=== PATIENT | male | born 1940 | race Caucasian/White ===

== ENCOUNTER → 2018-12-21 | Outpatient (CLI) | payer MEDICARE, OTHER, SELFPAY ==
[2018-12-21 13:43] LABS: PSA,Total- Diagnostic < 0.01 ng/mL (0.0-4.0)
== END | disposition home or self-care (01) ==
PROVIDERS: Family Provider Family Medicine; PCP Family Medicine; Referring Provider Family Medicine; Visit Provider Urology
DX: C61 Malignant neoplasm of prostate (principal)
CPT/HCPCS: 36415; 84153

== ENCOUNTER → 2019-09-30 11:39 | Outpatient (CLI) | payer MEDICARE, OTHER, SELFPAY ==
[2019-09-30 12:59] LABS: PSA,Total- Diagnostic < 0.01 ng/mL (0.0-4.0)
== END ==
PROVIDERS: PCP Family Medicine; Referring Provider Urology; Visit Provider Urology
DX: C61 Malignant neoplasm of prostate (principal)
CPT/HCPCS: 36415; 84153

== ENCOUNTER → 2020-02-10 09:04 | Outpatient (CLI) | payer MEDICARE, OTHER, SELFPAY ==
[2020-02-10 10:08] LABS: Hemoglobin A1c 6.2 % (3.8-5.6)
[2020-02-10 10:45] LABS: ALB/GLOB Ratio 0.9 RATIO (0.9-2.4); AST(SGOT) 23 U/L (15-37); Alanine Aminotransfer ALT/SGPT 40 U/L (16-61); Albumin, Serum 3.4 g/dL (3.2-5.0); Alkaline Phosphatase 56 U/L (45-117); Anion Gap 6 (5-15); BUN 20 mg/dL (7-18); BUN/Creat Ratio 13.8 RATIO (10-20); Calcium,Total 8.5 mg/dL (8.5-10.1); Chloride 103 mmol/L (98-107); Cholesterol 165 mg/dL (200); Creatinine, Serum 1.45 mg/dL (0.70-1.30); EST Glomerular Filtration Rate 50 mL/min (>60); Est Glom Filt Rate - Afr Amer 60 mL/min (>60); Globulin 3.6 g/dL (2.2-4.2); Glucose 118 mg/dL (74-106); High Density Lipoprotein 35 mg/dL; Potassium 4.3 mmol/L (3.5-5.1); Sodium Level 137 mmol/L (136-145); Thyroid Stim Hormone (TSH) 2.62 uIU/mL (0.358-3.74); Triglycerides 190 mg/dL; Very Low Density Lipoprotein 38 mg/dL (5-40)
== END ==
PROVIDERS: PCP Family Medicine; Referring Provider Family Medicine; Visit Provider Family Medicine
DX: E78.5 Hyperlipidemia, unspecified (principal); I10 Essential (primary) hypertension; R73.01 Impaired fasting glucose
CPT/HCPCS: 36415; 80053; 80061; 83036; 84443

== ENCOUNTER 2020-03-18 09:03 | Emergency (ER) | payer MEDICARE, OTHER, SELFPAY ==
[2020-03-18 09:05] VITALS: BP 136/85; PULSE 87; RESP 16; TEMP 36.3; O2SAT 96; BMI 35.7
--- NOTE | 2020-03-18 09:22 | CT_ITS ---
STUDY: CT ABDOMEN AND PELVIS WITHOUT CONTRAST REASON FOR EXAM: Male, 79 years old. FLANK PAIN, LT SIDE RADIATION DOSAGE (If Supplied By Facility): CTDIvol = ( 21.10 ) mGy, DLP = ( 1154.47 ) mGycm TECHNIQUE: Transaxial images were obtained from the dome of the diaphragm to the symphysis pubis without oral contrast, and without intravenous contrast. Sagittal and coronal images were reconstructed. Individualized dose optimization techniques were used for this CT. COMPARISON: September 05, 2017. FINDINGS: The visualized lung bases demonstrate basilar atelectasis. The visualized portions of the heart are within normal limits. Fatty liver. Cholelithiasis. No significant dilatation of extrahepatic biliary system. Normal spleen. Normal pancreas. 1.2 cm gastrohepatic node. Normal bilateral adrenal glands. Normal right kidney. Normal left kidney. Normal visualized stomach. Normal small intestine. Mild diverticulosis of the colon. The appendix is visualized and appears normal. Calcified abdominal aorta. Possible focal 1.2 cm splenic artery aneurysm. Normal inferior vena cava. Normal retroperitoneum. Normal urinary bladder. Stable lipomatous 1.8 cm nodule is noted within the left side of the pelvis. Fatty density at the inguinal canals. Normal abdominal wall. Degenerative vertebral changes with mild scoliosis. Spondylolysis of L5. CT/Abdomen/Pelvis without Cont IMPRESSION: Fatty liver. Cholelithiasis. Possible splenic artery aneurysm. No renal stones or hydronephrosis. Stable lipomatous nodule within the left pelvic mesentery. Fatty density at the inguinal canals. Slightly prominent gastrohepatic node. Colonic diverticulosis. Electronically Signed: Juanito Blevins DO at 10:36 EDT Tel [phone], Service support ,
--- NOTE | 2020-03-18 09:23 | ED.DCSUM_ITS ---
History of Present Illness <Pooja Alcaraz - Last Filed: 03/18/20 11:03> Informant: Patient - Abdominal Pain/Flank Pain Onset: Today Context: Sudden Onset Timing: Intermittent Quality: Sharp, Stabbing Location: Left Flank Current Severity: Mild Maximum Severity: Severe Worsened by: Nothing Relieved by: Nothing - Nausea/Vomiting/Emesis GI Symptom: Negative for: Nausea, Vomiting - Diarrhea/Melena/Hematochezia GI Symptom: Negative for: Diarrhea, Melena, Hematochezia Associated Symptoms: Frequency, Urgency. Negative for: Dysuria, Hematuria Narrative: 79-year-old male presents to the emergency department with left-sided flank pain and frequency and urgency with urination. He woke up at 5 AM today with severe sharp and stabbing left-sided flank pain and back pain. He states that it was severe for about 2 hours. It slowly resolved. He did not take any medicines for this. Throughout the course of the night he noted worsened frequency of urination and urgency than his baseline. He states he normally wakes up every 2-3 hours throughout the course the night to urinate but he was waking up approximately every 1 hour to urinate last night. He has not had hematuria or difficulty urinating. No nausea or vomiting. No diarrhea melena or hematochezia. No constipation. He has not felt lightheaded or dizzy. He denies chest pain or shortness of breath. He denies history of kidney stones. He has a history of prostate cancer. He was treated with radiation seeds 3 years ago. Denies any recent illness or hospitalization. He denies any upper respiratory symptoms or contacts of anyone with Covid-19 Prior similar symptoms: No Recent Illness/Hospitalization: No <Joel Asencio - Last Filed: 03/18/20 11:06> Chief Complaint: Flank Pain Past Medical History <Pooja Alcaraz - Last Filed: 03/18/20 11:03> Prior records reviewed: Yes Past Medical History: - - prostate cancer Surgical History: - - vasectemy, trauma injury to lower abd via a tailgate of a truck 5 years ao Lives: Alone Smoking Status: Current every day smoker Alcohol: Occasional Drugs: None - Family History Maternal Family History: Reports: - - arthritis Paternal Family History: Reports: - - father young of mi <Joel Asencio - Last Filed: 03/18/20 11:06> - Allergies and Home Meds Allergies/Adverse Reactions: Allergies Penicillins Allergy (Verified 03/18/20 09:05) Rash promethazine HCl [From Phenergan] Adverse Reaction (Verified 03/18/20 09:05) Unknown SEVERE CONFUSION, STROKE LIKE SYMPTOMS Primary Care Physician: Alejandra Mcdonald DO [Primary Care Provider] - 3-5 Days Review of Systems All systems negative except as indicated General: Denies: Chills, Fever, Sweats Eyes: Denies: Visual changes - bilaterally, Diplopia ENT: Denies: Rhinorrhea, Sore throat Cardiovascular: Denies: Chest pain, Palpitations Respiratory: Denies: Dyspnea, Cough, Dyspnea on exertion Gastrointestinal: Reports: Abdominal pain. Denies: Nausea, Vomiting, Diarrhea, Constipation, Melena, Hematochezia Genitourinary: Reports: Frequency. Denies: Dysuria, Hematuria Musculoskeletal: Denies: Myalgias, Arthralgias, Neck pain, Back pain, Swelling, Extremity Pain Skin: Denies: Rash, Wounds Neurological: Denies: Headache, Weakness, Numbness <Luis MJoel - Last Filed: 03/18/20 11:06> Physical Exam Vital Signs/Narrative: Vital Signs Temp Pulse Resp BP Pulse Ox 03/18/20 09:05 97.3 F L 87 16 136/85 H 96 <Pooja Alcaraz - Last Filed: 03/18/20 11:03> Vital Signs/Narrative: Vital Signs Temp Pulse Resp BP Pulse Ox 03/18/20 09:05 97.3 F L 87 16 136/85 H 96 Inital Vital Signs reviewed: Yes General: Well nourished, Well developed, No Acute Distress Head: Normocephalic, Atraumatic Eyes: Perrl, EOMI ENT: Moist mucous membranes, No rhinorrhea Neck: Supple, Nontender Cardiovascular: Regular rate, Regular rhythm, No murmurs Respiratory: No distress, CTA bilaterally, Chest nontender Abdomen: Soft, Nontender, Nondistended, Normal bowel sounds, No masses Back: Nontender, Normal Inspection. Negative for: CVA tenderness, Spinal tenderness Extremities: Nontender, No edema. Negative for: Tenderness, Edema Skin: Normal color, No rash Neurological: Alert, Oriented x3, Cranial nerves II-XII grossly intact, Normal Strength, Normal Sensation Psychological: Normal affect, Normal Mood <Joel Asencio - Last Filed: 03/18/20 11:06> Diagnostic/Tx/Re-eval - Medical Decision Making Patient seen and evaluated with the physician's accountant assistant. Patient was independently evaluated. Patient presents with left flank pain that was very severe earlier this morning. Pain is improved at this time. He states he was up to try to urinate frequently. Patient sitting upright in bed no acute distress. Heart is regular rhythm. On lung sounds are clear. Abdomen is soft and nontender. Back examination was no reproducible CVA tenderness. Lab work and urinalysis is unremarkable. CT flank shows chronic findings with no definitive cause for his pain. Patient was given return instructions. He may have passed a small kidney stone prior to arrival. He will continue to monitor his symptoms and return if worsened. Disposition: Discharge Impression: Left leg pain <Pooja Alcaraz - Last Filed: 03/18/20 11:03> CT: Flank Impressions Abdomen/Pelvis CT 03/18/20 09:22 IMPRESSION: Fatty liver. Cholelithiasis. Possible splenic artery aneurysm. No renal stones or hydronephrosis. Stable lipomatous nodule within the left pelvic mesentery. Fatty density at the inguinal canals. Slightly prominent gastrohepatic node. Colonic diverticulosis. Electronically Signed: Juanito Blevins DO at 10:36 EDT Tel [phone], Service support , 03/18/20 09:22 Abdomen/Pelvis without Cont [CT] Stat Laboratory Results 03/18/20 03/18/20 03/18/20 09:30 09:30 09:30 WBC 7.4 RBC 4.62 Hgb 14.6 Hct 44.6 MCV 96.5 H MCH 31.6 MCHC 32.7 RDW Std Deviation 45.8 H RDW Coeff of José Miguel 12.9 Plt Count 94 L MPV 10.3 Immature Gran % (Auto) 0.700 Neut % (Auto) 70.6 H Lymph % (Auto) 13.4 L [place] % (Auto) 13.0 H Eos % (Auto) 1.5 Baso % (Auto) 0.8 Absolute Neuts (auto) 5.2 Absolute Lymphs (auto) 0.99 Nucleated RBC % 0 Differential Comment SCANNED Platelet Estimate MOD DEC Sodium 137 Potassium 4.3 Chloride 105 Carbon Dioxide 27.0 Anion Gap 5 BUN 16 Creatinine 1.43 H Estim Creat Clear Calc 39.20 Est GFR (MDRD) Af Amer 61 Est GFR (MDRD) Non-Af 50 L BUN/Creatinine Ratio 11.2 Glucose 136 H Calcium 8.6 Urine Color Yellow Urine Clarity Clear Urine pH 5.0 Ur Specific [place] 1.020 Urine Protein Negative Urine Glucose (UA) Normal Urine Ketones 5 H Urine Occult Blood 10 H Urine Nitrite Negative Urine Bilirubin Negative Urine Urobilinogen 1 H Ur Leukocyte Esterase Negative Urine RBC 0-5 SEEN Urine WBC 0-5 SEEN Ur Squamous Epith Cells 0 SEEN Urine Bacteria RARE Urine Mucus 0 SEEN - Medical Decision Making Patient declined analgesia. On exam he is not having any pain. He states that he had resolution of his pain before prior to arrival. CBC BMP were obtained and both are unremarkable. Urinalysis shows 0-5 red blood cells. Rest of urinalysis unremarkable. CT abdomen and pelvis without contrast shows no renal stones or hydronephrosis. It also showed cholelithiasis, possible splenic artery aneurysm, diverticulosis, and a enlarged lymph node gastrohepatic. Patient on repeat exam is still pain-free. Discussed with him we do not have a definitive cause of his back pain at this time. Patient states he does not need any analgesia for home. Patient will follow-up with his primary care this week or return back here for worsening symptoms <Joel Asencio - Last Filed: 03/18/20 11:06> ED Disposition <Pooja Alcaraz - Last Filed: 03/18/20 11:03> <Joel Asencio - Last Filed: 03/18/20 11:06> - Plan for ED Patient: Disposition: Home or Assisted Living Diagnosis: Left flank pain, History of prostate cancer Instructions: ED Flank Pain Uncertain Cause Referrals: Alejandra Mcdonald DO [Primary Care Provider] - 3-5 Days
[2020-03-18 09:37] LABS: Mucous, Urine 0 SEEN /hpf (<or=2+); Squamous Epithelial Cells - UA 0 SEEN /hpf (0-5)
[2020-03-18 09:45] LABS: Color, Urine Yellow (Yellow); Glucose, Dipstick Normal (Normal); Ketone-Dipstick 5 mg/dl (Negative); Leukocyte Esterase-Dipstick Negative /ul (Negative); Nitrite-Dipstick Negative (Negative); Occult Blood-Urine 10 /ul (Negative); Protein-Dipstick Negative (Negative); Urine Bilirubin Dipstick Negative (Negative); Urine Clarity Clear (Clear); Urine Urobilinogen 1 mg/dl (Normal)
[2020-03-18 09:48] LABS: Absolute Lymphocyte Count 0.99 X10^3/uL (0.83-4.51); Absolute Neutrophil Count 5.2 X10^3/uL (2.0-7.7); Basophil# 0.06 X10^3/uL; Basophil% 0.8 % (0-1); Eosinophil# 0.11 X10^3/uL; Eosinophils% 1.5 % (0-5); Hematocrit 44.6 % (40-54); Hemoglobin 14.6 g/dL (13.0-16.5); Lymphocyte # 0.99 X10^3/ul (4.0); Lymphocyte % 13.4 % (19-41); Mean Corp Hgb Conc 32.7 g/dL (32-36); Mean Corpuscular Hgb 31.6 pg (27.0-32.0); Mean Corpuscular Volume 96.5 fL (80-94); Mean Platelet Vol. 10.3 fl (6.2-12.0); Monocyte# 0.96 X10^3/uL; NRBC Flagged by Analyzer 0 % (0-5); Neutrophil # 5.22 X10^3/uL (2.7-7.7); Neutrophil % 70.6 % (47-70); POSITIVE COUNT YES; Platelet Count 94 K/mm3 (150-450); RBC Distribution Width CV 12.9 % (11.6-14.6); RBC Distribution Width SD 45.8 fl (35.1-43.9); Red Blood Count 4.62 M/mm3 (4.6-6.2); White Blood Count 7.4 K/mm3 (4.4-11.0)
[2020-03-18 09:52] LABS: Bacteria RARE /hpf (None Seen); Differential Indicated SCAN CRITERIA MET; Red Blood Cells-Urine 0-5 SEEN /hpf (0-5); White Blood Cells 0-5 SEEN /hpf (0-5)
[2020-03-18 09:58] LABS: Anion Gap 5 (5-15); BUN 16 mg/dL (7-18); BUN/Creat Ratio 11.2 RATIO (10-20); Calcium,Total 8.6 mg/dL (8.5-10.1); Chloride 105 mmol/L (98-107); Creatinine, Serum 1.43 mg/dL (0.70-1.30); EST Glomerular Filtration Rate 50 mL/min (>60); Est Glom Filt Rate - Afr Amer 61 mL/min (>60); Glucose 136 mg/dL (74-106); Potassium 4.3 mmol/L (3.5-5.1); Sodium Level 137 mmol/L (136-145)
[2020-03-18 10:14] LABS: Differential Comment SCANNED; Platelet Estimate MOD DEC (ADEQ)
== END 2020-03-18 11:15 | disposition home or self-care (01) ==
PROVIDERS: Emergency Provider Physician Assistant Medical; PCP Family Medicine
DX: R10.9 Unspecified abdominal pain (principal); Z85.46 Personal history of malignant neoplasm of prostate; K76.0 Fatty (change of) liver, not elsewhere classified; K80.20 Calculus of gallbladder without cholecystitis without obstruction; K57.30 Diverticulosis of large intestine without perforation or abscess without bleeding; F17.200 Nicotine dependence, unspecified, uncomplicated; Z88.0 Allergy status to penicillin; Z88.8 Allergy status to other drugs, medicaments and biological substances; Z92.3 Personal history of irradiation; R35.0 Frequency of micturition; R39.15 Urgency of urination
CPT/HCPCS: 74176; 80048; 81001; 85025; 99283; A4216

== ENCOUNTER → 2020-03-30 16:05 | Outpatient (CLI) | payer MEDICARE, OTHER, SELFPAY ==
[2020-03-18 09:05] VITALS: BMI 35.7
[2020-03-30 18:40] LABS: PSA,Total- Diagnostic < 0.01 ng/mL (0.0-4.0)
== END ==
PROVIDERS: PCP Family Medicine; Referring Provider Urology; Visit Provider Urology
DX: C61 Malignant neoplasm of prostate (principal)
CPT/HCPCS: 36415; 84153

== ENCOUNTER 2020-07-03 19:04 | Inpatient (IN) | payer MEDICARE, OTHER, SELFPAY ==
[2020-07-03 19:04] VITALS: BP 130/78; PULSE 99; RESP 18; TEMP 36.7; BMI 34.4
--- NOTE | 2020-07-03 19:50 | EKG12_ITS ---
Test Reason : DYSRHYTHMIA Blood Pressure : / mmHG Vent. Rate : 091 BPM Atrial Rate : 091 BPM P-R Int : 152 ms QRS Dur : 084 ms QT Int : 338 ms P-R-T Axes : 001 013 032 degrees QTc Int : 415 ms Normal sinus rhythm Possible Inferior infarct , age undetermined Abnormal ECG Confirmed by FRANCO TITUS, YFN ([id number]), editor producer CHASITY REESE ([id number]) on 07/10/2020 11:46:34 AM Referred By: Yfn Bautista Confirmed By:YFN GAMEZ MD
--- NOTE | 2020-07-03 19:51 | ED.DCSUM_ITS ---
History of Present Illness Chief Complaint: General Illness Informant: Patient, Family Narrative: 79-year-old male with no significant past medical history presents with concern for swollen glands and decreased appetite. Patient states it began approximate 2 weeks ago. Has been seen by multiple physicians. Patient did have teledoc appointment today where they were concerned that he had mumps and asked him to go to the emergency department. Patient states he is actually significantly improved. His swelling is improved. States his appetite has been poor. Patient also states he has had thoughts of killing himself. Has no plan at this time. Dates that he does have guns in the home. Past Medical History - Allergies and Home Meds Allergies/Adverse Reactions: Allergies Penicillins Allergy (Verified 03/18/20 09:05) Rash promethazine HCl [From Phenergan] Adverse Reaction (Verified 03/18/20 09:05) Unknown SEVERE CONFUSION, STROKE LIKE SYMPTOMS Primary Care Physician: Alejandra Mcdonald DO [Primary Care Provider] - Past Medical History: None Surgical History: - - vasectemy, trauma injury to lower abd via a tailgate of a truck 5 years ao Lives: Alone Smoking Status: Current every day smoker Alcohol: None Drugs: None - Family History Maternal Family History: Reports: - - arthritis Paternal Family History: Reports: - - father young of mi Review of Systems General: Reports: Malaise. Denies: Chills, Fever, Sweats Eyes: Denies: Visual changes - bilaterally, Diplopia ENT: Denies: Rhinorrhea, Sore throat Cardiovascular: Denies: Chest pain, Palpitations Respiratory: Denies: Dyspnea, Cough, Dyspnea on exertion Gastrointestinal: Denies: Abdominal pain, Nausea, Vomiting, Diarrhea, Melena, Hematochezia Genitourinary: Denies: Dysuria, Hematuria, Frequency Musculoskeletal: Denies: Back pain, Extremity Pain Skin: Denies: Rash, Wounds Neurological: Denies: Headache, Weakness, Numbness Psych: Reports: Depression, Suicidal thoughts Physical Exam Vital Signs/Narrative: Vital Signs Temp Pulse Resp BP 07/03/20 19:04 98.1 F 99 18 130/78 H Inital Vital Signs reviewed: Yes General: Well nourished, Well developed, No Acute Distress Head: Normocephalic, Atraumatic Eyes: Perrl, EOMI ENT: Moist mucous membranes, No rhinorrhea Neck: Supple, Nontender Cardiovascular: Regular rate, Regular rhythm, No murmurs Respiratory: No distress, CTA bilaterally, Chest nontender Abdomen: Soft, Nontender, Nondistended, Normal bowel sounds Back: Nontender, Normal Inspection Extremities: Nontender, No edema Skin: Normal color, No rash Neurological: Alert, Oriented x3, Cranial nerves II-XII grossly intact, Normal Strength, Normal Sensation Psychological: Normal affect, Normal Mood Diagnostic/Tx/Re-eval Laboratory Data 07/03/20 07/03/20 07/03/20 20:20 20:20 20:20 WBC 6.1 RBC 4.26 L Hgb 13.2 Hct 40.5 MCV 95.1 H MCH 31.0 MCHC 32.6 RDW Std Deviation 44.0 H RDW Coeff of José Miguel 12.7 Plt Count 224 MPV 9.8 Immature Gran % (Auto) 1.500 H Neut % (Auto) 74.6 H Lymph % (Auto) 10.6 L [place] % (Auto) 12.5 H Eos % (Auto) 0.3 Baso % (Auto) 0.5 Absolute Neuts (auto) 4.5 Absolute Lymphs (auto) 0.64 L Nucleated RBC % 0 Sodium 134 L Potassium 4.1 Chloride 100 Carbon Dioxide 26.0 Anion Gap 8 BUN 21 H Creatinine 1.61 H Estim Creat Clear Calc 34.81 Est GFR (MDRD) Af Amer 53 L Est GFR (MDRD) Non-Af 44 L BUN/Creatinine Ratio 13.0 Glucose 109 H Calcium 8.2 L Total Bilirubin 0.70 AST 32 ALT 28 Alkaline Phosphatase 58 Troponin I < 0.015 Total Protein 7.5 Albumin 2.9 L Globulin 4.6 H Albumin/Globulin Ratio 0.6 L Ur Drug Screen Comment Ethyl Alcohol < 3.0 07/03/20 22:55 WBC RBC Hgb Hct MCV MCH MCHC RDW Std Deviation RDW Coeff of José Miguel Plt Count MPV Immature Gran % (Auto) Neut % (Auto) Lymph % (Auto) [place] % (Auto) Eos % (Auto) Baso % (Auto) Absolute Neuts (auto) Absolute Lymphs (auto) Nucleated RBC % Sodium Potassium Chloride Carbon Dioxide Anion Gap BUN Creatinine Estim Creat Clear Calc Est GFR (MDRD) Af Amer Est GFR (MDRD) Non-Af BUN/Creatinine Ratio Glucose Calcium Total Bilirubin AST ALT Alkaline Phosphatase Troponin I Total Protein Albumin Globulin Albumin/Globulin Ratio Ur Drug Screen Comment Ethyl Alcohol - Rhythm Strip Rhythm Strip: Sinus Rhythm Rate: 91 Ectopy: None - EKG Initial EKG Interpretation: Sinus Rhythm - Normal sinus rhythm at 90 bpm. MN interval 152 ms. QTC of 415 ms. No evidence of ST elevation or depression at this time. - Medical Decision Making Patient appears well nontoxic. Vital signs within normal limits. Lab work sh ows volume depletion. Patient was given 1 L of normal saline. Patient did express suicidal thoughts with a plan. For this reason patient will be pink slipped. [facility] was contacted who will review the case once the patient is medically cleared. Impression: 1. Viral syndrome 2. Suicidal ideation ED Disposition - Plan for ED Patient: Disposition: Psychiatric Hospital or Unit Referrals: Alejandra Mcdonald DO [Primary Care Provider] -
--- NOTE | 2020-07-03 20:15 | CM.ED ---
SOCIAL WORK Informant: Dr. Fair Reason for Consult: Suicidal ideation Chief Compliant: Patient presents to [facility] ER with compliant of general illness. While talking with Dr. Fair patient reported suicidal ideation. Marital Status: Living Situation: Home alone Support/Resources: Family Mental Health Treatment/History: Patient reports history of depression. Patient states at the age of 7 family member had to take shot gun away because I was going to shoot myself. Patient states after my left me in 1983 patient had contemplated suicide. Patient denies any previous hospitalizations. Patient reports sought counseling after divorce. Triggers/Stressors: Patient reports his physical health to be an issue as he has not been feeling well for several weeks. Patient reports not being able to eat or sleep. Education provided on mental health and physical health. Protective Factors: Children and grandchildren Substance Abuse History: Patient denies any history of alcohol or illegal drug use. Patient admits to use of chewing tobacco. Risk to Self/Others: Suicidal- Patient reports has thoughts when walking past basement that he could tie a noose and jump off steps to basement. Patient reports to have shot guns in the home that are kept in a gun safe. Homicidal- Patient denies any homicidal ideations Mental Status Exam: Orientation: A&Ox3 Memory: Fair Appearance/General Behavior: clean/appropriate, agitated Mood/Affect: depressed Communication Pattern: responds to questions Thought Process: appropriate Judgment: poor Assessment: Met with patient and patient's son in room. Patient gave permission for this worker to speak openly with son present. Introduced role and reason for referral. Patient open to speaking with this worker. Patient reports history of depression. Patient stated when left in 1982 had contemplated suicide. Patient reports at that time sought counseling. Patient reports over the last several weeks has not been feeling well. Patient reporting to not be able to eat or sleep. Patient admits to suicidal ideation. Explored thoughts of a plan. Patient reports to have guns in the home. Patient also reported had walked past the basement steps and had thoughts of hanging self. Collaboration with Dr. Fair. Patient has been [place] Slipped and recommending inpatient psych hospitalization. This worker to facilitate placement. Plan: Referral for inpatient psych hospitalization. [place] Slip on chart.
[2020-07-03 20:25] VITALS: BP 133/73; PULSE 90; RESP 20; O2SAT 93
[2020-07-03 20:47] LABS: Absolute Lymphocyte Count 0.64 X10^3/uL (0.83-4.51); Absolute Neutrophil Count 4.5 X10^3/uL (2.0-7.7); Basophil# 0.03 X10^3/uL; Basophil% 0.5 % (0-1); Eosinophil# 0.02 X10^3/uL; Eosinophils% 0.3 % (0-5); Hematocrit 40.5 % (40-54); Hemoglobin 13.2 g/dL (13.0-16.5); Lymphocyte # 0.64 X10^3/ul (4.0); Lymphocyte % 10.6 % (19-41); Mean Corp Hgb Conc 32.6 g/dL (32-36); Mean Corpuscular Volume 95.1 fL (80-94); Mean Platelet Vol. 9.8 fl (6.2-12.0); Monocyte# 0.76 X10^3/uL; Monocyte% 12.5 % (0-10); NRBC Flagged by Analyzer 0 % (0-5); Neutrophil # 4.52 X10^3/uL (2.7-7.7); Neutrophil % 74.6 % (47-70); Platelet Count 224 K/mm3 (150-450); RBC Distribution Width CV 12.7 % (11.6-14.6); Red Blood Count 4.26 M/mm3 (4.6-6.2); White Blood Count 6.1 K/mm3 (4.4-11.0)
[2020-07-03 21:00] LABS: ALB/GLOB Ratio 0.6 RATIO (0.9-2.4); AST(SGOT) 32 U/L (15-37); Alanine Aminotransfer ALT/SGPT 28 U/L (16-61); Albumin, Serum 2.9 g/dL (3.2-5.0); Alkaline Phosphatase 58 U/L (45-117); Anion Gap 8 (5-15); BUN 21 mg/dL (7-18); Calcium,Total 8.2 mg/dL (8.5-10.1); Chloride 100 mmol/L (98-107); Creatinine, Serum 1.61 mg/dL (0.70-1.30); EST Glomerular Filtration Rate 44 mL/min (>60); Est Glom Filt Rate - Afr Amer 53 mL/min (>60); Estimated Creatinine Clearance 34.81 ml/min; Globulin 4.6 g/dL (2.2-4.2); Glucose 109 mg/dL (74-106); Potassium 4.1 mmol/L (3.5-5.1); Protein, Total 7.5 g/dL (6.4-8.2); Sodium Level 134 mmol/L (136-145)
--- NOTE | 2020-07-03 21:20 | CM.ED ---
SOCIAL WORK This worker to room with Dr. Fair to educate patient and son on [place]ip. Patient stating I want to go home. Son voiced disagreement with plan for inpatient psych hospitalization. Proceeding with plan for inpatient psych. D. Santos, INDIGO VAT TENDER CLOTH, DERMATOPATHOLOGIST
[2020-07-03] MEDS: 0.9% Normal Saline 1,000 ML 999 ML IV (22:12)
[2020-07-03 22:35] VITALS: BP 151/70; PULSE 85; RESP 18; TEMP 37.7; O2SAT 93
--- NOTE | 2020-07-03 22:50 | CM.ED ---
SOCIAL WORK Referral faxed and called to [facility]. Still waiting on lab results for urine and tox along with COVID-19 results. End of SW shift-Handoff given to medical assistant secretary, Amadou and charge entry clerk, Dolores. Healthcare Translator to fax results to [facility] once received.
[2020-07-03 22:52] LABS: Alcohol, Blood (Medical)-Serum < 3.0 mg/dL
[2020-07-03 23:04] LABS: Mucous, Urine 0 SEEN /hpf (<or=2+); Red Blood Cells-Urine 0 SEEN /hpf (0-5); Squamous Epithelial Cells - UA 0 SEEN /hpf (0-5); White Blood Cells 0 SEEN /hpf (0-5)
[2020-07-03 23:31] LABS: Color, Urine Yellow (Yellow); Glucose, Dipstick Normal (Normal); Ketone-Dipstick 15 mg/dl (Negative); Leukocyte Esterase-Dipstick Negative /ul (Negative); Nitrite-Dipstick Negative (Negative); Occult Blood-Urine Negative /ul (Negative); Protein-Dipstick 15 mg/dl (Negative); Urine Bilirubin Dipstick Negative (Negative); Urine Clarity Clear (Clear); Urine Urobilinogen Normal (Normal)
[2020-07-03 23:43] LABS: Bacteria 2+ /hpf (None Seen)
[2020-07-03 23:50] LABS: Amphetamine Urine VISTA NEGATIVE (<1000 ng/mL); Barbiturate Urine VISTA NEGATIVE (< 200 ng/mL); Benzodiazepine Urine VISTA NEGATIVE (< 200 ng/mL); Cocaine Urine VISTA NEGATIVE (< 300 ng/mL); Ecstacy Urine VISTA NEGATIVE (< 500 ng/mL); Methadone Urine VISTA NEGATIVE (< 300 ng/mL); PCP Urine VISTA NEGATIVE (< 25 ng/mL); THC Urine VISTA NEGATIVE (< 50 ng/mL); Vista UDS pH Range 6
[2020-07-04] VITALS (13 sets, daily range): BP systolic 120–201; BP diastolic 51–100; PULSE 68–92; RESP 16–24; TEMP 37.6–38.7; O2SAT 92–97; BMI 34.1; BMI 34.2
[2020-07-04] MEDS: hydrALAZINE 20 MG/ML Vial 10 MG IV (00:29)
--- NOTE | 2020-07-04 01:23 | NURSING ---
notified of bp 201/84. no orders given at this time
--- NOTE | 2020-07-04 01:50 | PCM.HP.STD ---
Problem List (1) COVID-19 Status: Acute (2) Suicidal ideation Status: Acute History of Present Illness Date of Admission: 07/04/20 Chief Complaint: shortness of breath, suicidal thinking The patient is a 79 year old male patient presents to the emergency room complaining of shortness of breath. Onset of the symptoms began approximately 2 weeks ago for which she had a telehealth appointment and was told he might have mumps however that subsequently resolved and the patient has now become short of breath with fever. The patient tested positive for COVID-19 virus and has had shortness of breath with increased rate of breathing while being observed in the emergency room. He states that finds it difficult to take a deep breath. He also complained to the ER physician taking care of him earlier in the observation. That he was feeling suicidal however he did not have an active plan at that time and currently he is denying thinking of suicide. Suicide precautions have been put in place due to the threat verbalized earlier in the day and the patient will be admitted to the [facility] floor for observation. Pending evaluation by case management he may be discharged home tomorrow if he is improved. Past Medical History Allergies Penicillins Allergy (Verified 03/18/20 09:05) Rash promethazine HCl [From Phenergan] Adverse Reaction (Verified 03/18/20 09:05) Unknown SEVERE CONFUSION, STROKE LIKE SYMPTOMS Home Medications: Ambulatory Orders Medication Instructions Recorded Finasteride [Proscar] 5 mg PO QHS 02/26/15 Simvastatin [Zocor] 40 mg PO QHS 02/26/15 Tamsulosin HCl [Flomax] 0.4 mg PO BID 02/26/15 Aspirin E.C. [Ecotrin] 81 mg PO DAILY@0800 07/09/17 Surgical History: - - vasectemy, trauma injury to lower abd via a tailgate of a truck 5 years ao Lives: Alone Smoking Status: Current every day smoker Alcohol: None Drugs: None - *Family History Maternal History Items: - - arthritis Paternal History Items: - - father young of mi Review of Systems Constitutional: Reports: Fever. Denies: Chills, Weight Change HEENT: Denies: Head Aches, Sinus Congestion, Sinus Drainage Cardiovascular: Denies: Chest Pain, Palpitations Respiratory: Reports: Cough, Shortness of breath at rest. Denies: Sputum production Gastrointestinal: Denies: Abdominal Pain, Nausea, Vomiting Genitourinary: Denies: Dysuria Musculoskeletal: Denies: Joint Pain, Joint Tenderness Skin: Denies: Rash, Wounds Neurological: Denies: Numbness, Tingling, Focal weakness Psychiatric: Reports: Suicidal Ideations. Denies: Anxiety, Depression, Homicidal Ideations Hematologic/ Lymphatic: Denies: Easy Bruising, Easy Bleeding VTE Information - Inpt Only VTE Present on Admission: No VTE Mechan Device Prophylaxis: None VTE Pharm Prophylaxis ordered?: Yes - Physical Exam Vitals/I&O's: Vital Signs Temp Pulse Resp BP Pulse Ox 99.9 F H 92 24 H 201/84 H 97 07/03/20 22:35 07/04/20 01:23 07/04/20 01:23 07/04/20 01:23 07/04/20 01:23 Oxygen Delivery Method Room Air Weight: 226 lb 13.69 oz Body Mass Index (BMI) 34.4 Intake and Output for Last 24 Hours 07/02/20 07/03/20 07/04/20 23:59 23:59 23:59 Intake Total 1000 / 1000 Balance 1000 / 1000 General: Alert, Oriented x3, Cooperative HEENT: Atraumatic, Normocephalic Neck: Supple, No JVD Lungs: Diminished, Tachypneic, Wheezes Cardiovascular: Regular rate, No murmurs Abdomen: Bowel Sounds Present, Soft Extremities: No edema Skin: No rashes Musculoskeletal: No Tenderness to Palpation of Joints or Extremities Neurological: Neuro grossly intact Psych/Mental Status: Normal Affect, Appropriate Laboratory Results 07/03/20 20:20: WBC 6.1, RBC 4.26 L, Hgb 13.2, Hct 40.5, MCV 95.1 H, MCH 31.0, MCHC 32.6, RDW Std Deviation 44.0 H, RDW Coeff of José Miguel 12.7, Plt Count 224, MPV 9.8, Immature Gran % (Auto) 1.500 H, Neut % (Auto) 74.6 H, Lymph % (Auto) 10.6 L, [place] % (Auto) 12.5 H, Eos % (Auto) 0.3, Baso % (Auto) 0.5, Absolute Neuts (auto) 4.5, Absolute Lymphs (auto) 0.64 L, Nucleated RBC % 0 07/03/20 20:20: Sodium 134 L, Potassium 4.1, Chloride 100, Carbon Dioxide 26.0, Anion Gap 8, BUN 21 H, Creatinine 1.61 H, Estim Creat Clear Calc 34.81, Est GFR (MDRD) Af Amer 53 L, Est GFR (MDRD) Non-Af 44 L, BUN/Creatinine Ratio 13.0, Glucose 109 H, Calcium 8.2 L, Total Bilirubin 0.70, AST 32, ALT 28, Alkaline Phosphatase 58, Troponin I < 0.015, Total Protein 7.5, Albumin 2.9 L, Globulin 4.6 H, Albumin/Globulin Ratio 0.6 L 07/03/20 20:20: Ethyl Alcohol < 3.0 07/03/20 21:15: COVID-19 (JERRY) Detected 07/03/20 22:55: Urine Color Yellow, Urine Clarity Clear, Urine pH 6.0, Ur Specific [place] 1.020, Urine Protein 15 H, Urine Glucose (UA) Normal, Urine Ketones 15 H, Urine Occult Blood Negative, Urine Nitrite Negative, Urine Bilirubin Negative, Urine Urobilinogen Normal, Ur Leukocyte Esterase Negative, Urine RBC 0 SEEN, Urine WBC 0 SEEN, Ur Squamous Epith Cells 0 SEEN, Urine Bacteria 2+, Urine Mucus 0 SEEN 07/03/20 22:55: Urine Opiates Screen NEGATIVE, Urine Methadone Screen NEGATIVE, Ur Barbiturates Screen NEGATIVE, Ur Phencyclidine Scrn NEGATIVE, Ur Amphetamines Screen NEGATIVE, U Methamphetamin-MDMA NEGATIVE, U Benzodiazepines Scrn NEGATIVE, Urine Cocaine Screen NEGATIVE, U Cannabinoids Screen NEGATIVE, Ur Drug Screen Comment Assessment/Plan All Active Problems COVID-19 (Acute) Suicidal ideation (Acute) Nausea (Acute) Abdominal pain (Acute) Fever (Acute) Plan 1. COVID-19 infection with tachypnea?admit patient to Covid floor place patient in strict isolation, oxygen per protocol, albuterol ventilator INH every 2 hours as needed shortness of breath 2. Suicidal ideation?continue suicidal precautions have crisis to evaluate in the morning 3. DVT prophylaxis?low molecular weight heparin OBSV E&M: [id number] Initial observation care L2
[2020-07-04] MEDS: Acetaminophen 500 MG Tablet 1000 MG PO (02:10)
[2020-07-04 07:28] LABS: Absolute Lymphocyte Count 0.94 X10^3/uL (0.83-4.51); Absolute Neutrophil Count 4.8 X10^3/uL (2.0-7.7); Basophil# 0.04 X10^3/uL; Basophil% 0.6 % (0-1); Eosinophil# 0.04 X10^3/uL; Eosinophils% 0.6 % (0-5); Hematocrit 41.8 % (40-54); Hemoglobin 13.1 g/dL (13.0-16.5); Lymphocyte # 0.94 X10^3/ul (4.0); Lymphocyte % 14.4 % (19-41); Mean Corp Hgb Conc 31.3 g/dL (32-36); Mean Corpuscular Hgb 30.5 pg (27.0-32.0); Mean Corpuscular Volume 97.4 fL (80-94); Mean Platelet Vol. 9.7 fl (6.2-12.0); Monocyte# 0.59 X10^3/uL; NRBC Flagged by Analyzer 0 % (0-5); Neutrophil # 4.79 X10^3/uL (2.7-7.7); Neutrophil % 73.3 % (47-70); Platelet Count 224 K/mm3 (150-450); RBC Distribution Width CV 12.9 % (11.6-14.6); RBC Distribution Width SD 45.8 fl (35.1-43.9); Red Blood Count 4.29 M/mm3 (4.6-6.2); White Blood Count 6.5 K/mm3 (4.4-11.0)
[2020-07-04 07:54] LABS: Anion Gap 6 (5-15); BUN 20 mg/dL (7-18); BUN/Creat Ratio 13.8 RATIO (10-20); Calcium,Total 8.1 mg/dL (8.5-10.1); Chloride 102 mmol/L (98-107); Creatinine, Serum 1.45 mg/dL (0.70-1.30); EST Glomerular Filtration Rate 50 mL/min (>60); Est Glom Filt Rate - Afr Amer 60 mL/min (>60); Estimated Creatinine Clearance 38.66 ml/min; Glucose 108 mg/dL (74-106); Sodium Level 137 mmol/L (136-145)
[2020-07-04] MEDS: Aspirin E.C. 81 MG Tablet PO (08:45)
[2020-07-04] MEDS: Tamsulosin HCl 0.4 MG Capsule PO ×2 (08:45→20:14)
[2020-07-04] MEDS: Enoxaparin 40 MG/0.4 ML Syringe SC (08:45)
[2020-07-04] MEDS: Acetaminophen 325 MG Tablet 650 MG PO ×2 (09:50→17:13)
[2020-07-04] MEDS: 0.9% Saline Lock 10 ML Syringe IV (09:51)
[2020-07-04] MEDS: 0.9% Normal Saline 1,000 ML 120 ML IV ×2 (09:51→17:15)
--- NOTE | 2020-07-04 11:02 | PN_ITS ---
Patient Problems: Active and Suspected Problems COVID-19 (Acute) Suicidal ideation (Acute) Subjective: Patient seen and examined. He was admitted with a complaint of shortness of breath which started 2 weeks prior to admission. Covid test done was positive. He has been managed for acute Covid 19 infection. Vitals/I&O's: Vital Signs Temp Pulse Resp BP Pulse Ox 101.5 F H 80 18 138/63 H 92 07/04/20 08:38 07/04/20 07:20 07/04/20 09:00 07/04/20 07:20 07/04/20 09:30 Oxygen Delivery Method Room Air Weight: 224 lb 11.2 oz Body Mass Index (BMI) 34.1 Intake and Output for Last 24 Hours 07/02/20 07/03/20 07/04/20 23:59 23:59 23:59 Intake Total 1000 / 1000 Balance 1000 / 1000 Laboratory Results 07/03/20 20:20: WBC 6.1, RBC 4.26 L, Hgb 13.2, Hct 40.5, MCV 95.1 H, MCH 31.0, MCHC 32.6, RDW Std Deviation 44.0 H, RDW Coeff of José Miguel 12.7, Plt Count 224, MPV 9.8, Immature Gran % (Auto) 1.500 H, Neut % (Auto) 74.6 H, Lymph % (Auto) 10.6 L , [place] % (Auto) 12.5 H, Eos % (Auto) 0.3, Baso % (Auto) 0.5, Absolute Neuts (auto) 4.5, Absolute Lymphs (auto) 0.64 L, Nucleated RBC % 0 07/03/20 20:20: Sodium 134 L, Potassium 4.1, Chloride 100, Carbon Dioxide 26.0, Anion Gap 8, BUN 21 H, Creatinine 1.61 H, Estim Creat Clear Calc 34.81, Est GFR (MDRD) Af Amer 53 L, Est GFR (MDRD) Non-Af 44 L, BUN/Creatinine Ratio 13.0, Glucose 109 H, Calcium 8.2 L, Total Bilirubin 0.70, AST 32, ALT 28, Alkaline Phosphatase 58, Troponin I < 0.015, Total Protein 7.5, Albumin 2.9 L, Globulin 4.6 H, Albumin/Globulin Ratio 0.6 L 07/03/20 20:20: Ethyl Alcohol < 3.0 07/03/20 21:15: COVID-19 (JERRY) Detected 07/03/20 22:55: Urine Color Yellow, Urine Clarity Clear, Urine pH 6.0, Ur Specific [place] 1.020, Urine Protein 15 H, Urine Glucose (UA) Normal, Urine Ketones 15 H, Urine Occult Blood Negative, Urine Nitrite Negative, Urine Bilirubin Negative, Urine Urobilinogen Normal, Ur Leukocyte Esterase Negative, Urine RBC 0 SEEN, Urine WBC 0 SEEN, Ur Squamous Epith Cells 0 SEEN, Urine Bacteria 2+, Urine Mucus 0 SEEN 07/03/20 22:55: Urine Opiates Screen NEGATIVE, Urine Methadone Screen NEGATIVE, Ur Barbiturates Screen NEGATIVE, Ur Phencyclidine Scrn NEGATIVE, Ur Amphetamines Screen NEGATIVE, U Methamphetamin-MDMA NEGATIVE, U Benzodiazepines Scrn NEGATIVE, Urine Cocaine Screen NEGATIVE, U Cannabinoids Screen NEGATIVE, Ur Drug Screen Comment 07/04/20 07:00: WBC 6.5, RBC 4.29 L, Hgb 13.1, Hct 41.8, MCV 97.4 H, MCH 30.5, MCHC 31.3 L, RDW Std Deviation 45.8 H, RDW Coeff of José Miguel 12.9, Plt Count 224, MPV 9.7, Immature Gran % (Auto) 2.100 H, Neut % (Auto) 73.3 H, Lymph % (Auto) 14.4 L , [place] % (Auto) 9.0, Eos % (Auto) 0.6, Baso % (Auto) 0.6, Absolute Neuts (auto) 4.8, Absolute Lymphs (auto) 0.94, Nucleated RBC % 0 07/04/20 07:00: Sodium 137, Potassium 4.0, Chloride 102, Carbon Dioxide 29.0, Anion Gap 6, BUN 20 H, Creatinine 1.45 H, Estim Creat Clear Calc 38.66, Est GFR (MDRD) Af Amer 60, Est GFR (MDRD) Non-Af 50 L, BUN/Creatinine Ratio 13.8, Glucose 108 H, Calcium 8.1 L Current Medications Acetaminophen (Acetaminophen 325 Mg Tablet) 650 mg PO Q6H PRN PRN PRN Reason: HEADACHE/FEVER (T>100F) Last Admin: 07/04/20 09:50 Dose: 650 mg Documented by: Albuterol Sulfate (Albuterol Sulfate Hfa 6.7 Gm Inhaler (200 Puffs)) 1 puff IH Q2H PRN PRN PRN Reason: SHORTNESS OF BREATH Aspirin (Aspirin E.C. 81 Mg Tablet) 81 mg PO DAILY@0800 [facility] Last Admin: 07/04/20 08:45 Dose: 81 mg Documented by: Atorvastatin Calcium (Atorvastatin Calcium 20 Mg Tablet) 20 mg PO QHS [facility] Enoxaparin Sodium (Enoxaparin 40 Mg/0.4 Ml Syringe) 40 mg SC DAILY [facility] Last Admin: 07/04/20 08:45 Dose: 40 mg Documented by: Finasteride (Finasteride 5 Mg Tablet) 5 mg PO QHS [facility] Sodium Chloride () 250 mls @ 15 mls/hr IV .[id number] PRN PRN Reason: Saline Flush Sodium Chloride () 1,000 mls @ 120 mls/hr IV .Q8H20M [facility] Last Admin: 07/04/20 09:51 Dose: 120 mls/hr Documented by: Miscellaneous Information (Inhaler, Assist Devices 1 Each Spacer) 1 each INHALATION PRN PRN PRN Reason: WITH ALBUTEROL MDI Nutritional Formula (Lactose Free) (Ensure Enlive 120 Ml Liquid) 120 ml PO 4X/DAY [facility] Last Admin: 07/04/20 09:54 Dose: 120 ml Documented by: Sodium Chloride (0.9% Saline Lock 10 Ml Syringe) 10 - 40 ml IV UD PRN PRN Reason: SALINE FLUSH Last Admin: 07/04/20 09:51 Dose: 10 ml Documented by: Tamsulosin HCl (Tamsulosin Hcl 0.4 Mg Capsule) 0.4 mg PO BID [facility] Last Admin: 07/04/20 08:45 Dose: 0.4 mg Documented by: STROKE Vital Signs/Narrative: Vital Signs Temp Pulse Resp BP Pulse Ox 07/04/20 09:30 92 07/04/20 09:00 18 92 07/04/20 08:38 101.5 F H 07/04/20 07:20 100.2 F H 80 18 138/63 H 92 Medical Necessity - Tobacco Use Smoking Status: Current every day smoker Tobacco Use: Chew Assessment/Plan All Active Problems COVID-19 (Acute) Suicidal ideation (Acute) Nausea (Acute) Abdominal pain (Acute) Fever (Acute)
--- NOTE | 2020-07-04 11:15 | PCM.PN.HOSP ---
Patient Problems: Active and Suspected Problems COVID-19 (Acute) Suicidal ideation (Acute) Subjective: Patient seen and examined. He was admitted with a complaint of shortness of breath which started 2 weeks prior to admission. He was diagnosed with COVID 19 infection. Patient also expressed suicidal ideation. He is being managed for COVID 19 infection. Patient seen and examined. HE complained of some shortness of breath, and cough. Review of systems was otherwise negative. He is on room air. He denied any suicidal or homicidal ideation. He had a sitter by him. He has remained hemodynamically stable. Vitals/I&O's: Vital Signs Temp Pulse Resp BP Pulse Ox 101.5 F H 80 18 138/63 H 92 07/04/20 08:38 07/04/20 07:20 07/04/20 09:00 07/04/20 07:20 07/04/20 09:30 Oxygen Delivery Method Room Air Weight: 224 lb 11.2 oz Body Mass Index (BMI) 34.1 Intake and Output for Last 24 Hours 07/02/20 07/03/20 07/04/20 23:59 23:59 23:59 Intake Total 1000 / 1000 Balance 1000 / 1000 General: Alert, Oriented x3, Cooperative, No apparent distress HEENT: Atraumatic, PERRLA, EOMI, Normocephalic Oral: Moist Mucosa Neck: Supple, No JVD, Negative Carotid Bruits Lungs: - - diminished breath sounds bibasally, few crackles and wheezing. On room air. Cardiovascular: Regular rate, Regular Rhythm, Normal S1, Normal S2, No murmurs Abdomen: Bowel Sounds Present, Soft, Non Tender, Non-Distended, No Hepato-splenomegaly Extremities: No clubbing, No cyanosis, No edema, Capillary Refill Less than 3 Seconds Skin: No rashes, No breakdown Musculoskeletal: No Tenderness to Palpation of Joints or Extremities Lymphatic: No Cervical, Supraclavicular, or Inguinal Adenopathy Neurological: Cranial nerves II-XII grossly intact, Neuro grossly intact, Motor Exam 5/5 strength throughout Psych/Mental Status: Normal Affect, Appropriate, Alert and oriented to time, place, person, mood and affect Laboratory Results 07/03/20 20:20: WBC 6.1, RBC 4.26 L, Hgb 13.2, Hct 40.5, MCV 95.1 H, MCH 31.0, MCHC 32.6, RDW Std Deviation 44.0 H, RDW Coeff of José Miguel 12.7, Plt Count 224, MPV 9.8, Immature Gran % (Auto) 1.500 H, Neut % (Auto) 74.6 H, Lymph % (Auto) 10.6 L, [place] % (Auto) 12.5 H, Eos % (Auto) 0.3, Baso % (Auto) 0.5, Absolute Neuts (auto) 4.5, Absolute Lymphs (auto) 0.64 L, Nucleated RBC % 0 07/03/20 20:20: Sodium 134 L, Potassium 4.1, Chloride 100, Carbon Dioxide 26.0, Anion Gap 8, BUN 21 H, Creatinine 1.61 H, Estim Creat Clear Calc 34.81, Est GFR (MDRD) Af Amer 53 L, Est GFR (MDRD) Non-Af 44 L, BUN/Creatinine Ratio 13.0, Glucose 109 H, Calcium 8.2 L, Total Bilirubin 0.70, AST 32, ALT 28, Alkaline Phosphatase 58, Troponin I < 0.015, Total Protein 7.5, Albumin 2.9 L, Globulin 4.6 H, Albumin/Globulin Ratio 0.6 L 07/03/20 20:20: Ethyl Alcohol < 3.0 07/03/20 21:15: COVID-19 (JERRY) Detected 07/03/20 22:55: Urine Color Yellow, Urine Clarity Clear, Urine pH 6.0, Ur Specific [place] 1.020, Urine Protein 15 H, Urine Glucose (UA) Normal, Urine Ketones 15 H, Urine Occult Blood Negative, Urine Nitrite Negative, Urine Bilirubin Negative, Urine Urobilinogen Normal, Ur Leukocyte Esterase Negative, Urine RBC 0 SEEN, Urine WBC 0 SEEN, Ur Squamous Epith Cells 0 SEEN, Urine Bacteria 2+, Urine Mucus 0 SEEN 07/03/20 22:55: Urine Opiates Screen NEGATIVE, Urine Methadone Screen NEGATIVE, Ur Barbiturates Screen NEGATIVE, Ur Phencyclidine Scrn NEGATIVE, Ur Amphetamines Screen NEGATIVE, U Methamphetamin-MDMA NEGATIVE, U Benzodiazepines Scrn NEGATIVE, Urine Cocaine Screen NEGATIVE, U Cannabinoids Screen NEGATIVE, Ur Drug Screen Comment 07/04/20 07:00: WBC 6.5, RBC 4.29 L, Hgb 13.1, Hct 41.8, MCV 97.4 H, MCH 30.5, MCHC 31.3 L, RDW Std Deviation 45.8 H, RDW Coeff of José Miguel 12.9, Plt Count 224, MPV 9.7, Immature Gran % (Auto) 2.100 H, Neut % (Auto) 73.3 H, Lymph % (Auto) 14.4 L, [place] % (Auto) 9.0, Eos % (Auto) 0.6, Baso % (Auto) 0.6, Absolute Neuts (auto) 4.8, Absolute Lymphs (auto) 0.94, Nucleated RBC % 0 07/04/20 07:00: Sodium 137, Potassium 4.0, Chloride 102, Carbon Dioxide 29.0, Anion Gap 6, BUN 20 H, Creatinine 1.45 H, Estim Creat Clear Calc 38.66, Est GFR (MDRD) Af Amer 60, Est GFR (MDRD) Non-Af 50 L, BUN/Creatinine Ratio 13.8, Glucose 108 H, Calcium 8.1 L Current Medications Acetaminophen (Acetaminophen 325 Mg Tablet) 650 mg PO Q6H PRN PRN PRN Reason: HEADACHE/FEVER (T>100F) Last Admin: 07/04/20 09:50 Dose: 650 mg Documented by: Albuterol Sulfate (Albuterol Sulfate Hfa 6.7 Gm Inhaler (200 Puffs)) 1 puff IH Q2H PRN PRN PRN Reason: SHORTNESS OF BREATH Aspirin (Aspirin E.C. 81 Mg Tablet) 81 mg PO DAILY@0800 [facility] Last Admin: 07/04/20 08:45 Dose: 81 mg Documented by: Atorvastatin Calcium (Atorvastatin Calcium 20 Mg Tablet) 20 mg PO QHS [facility] Enoxaparin Sodium (Enoxaparin 40 Mg/0.4 Ml Syringe) 40 mg SC DAILY [facility] Last Admin: 07/04/20 08:45 Dose: 40 mg Documented by: Finasteride (Finasteride 5 Mg Tablet) 5 mg PO QHS [facility] Sodium Chloride () 250 mls @ 15 mls/hr IV .[id number] PRN PRN Reason: Saline Flush Sodium Chloride () 1,000 mls @ 120 mls/hr IV .Q8H20M [facility] Last Admin: 07/04/20 09:51 Dose: 120 mls/hr Documented by: Miscellaneous Information (Inhaler, Assist Devices 1 Each Spacer) 1 each INHALATION PRN PRN PRN Reason: WITH ALBUTEROL MDI Nutritional Formula (Lactose Free) (Ensure Enlive 120 Ml Liquid) 120 ml PO 4X/DAY [facility] Last Admin: 07/04/20 09:54 Dose: 120 ml Documented by: Sodium Chloride (0.9% Saline Lock 10 Ml Syringe) 10 - 40 ml IV UD PRN PRN Reason: SALINE FLUSH Last Admin: 07/04/20 09:51 Dose: 10 ml Documented by: Tamsulosin HCl (Tamsulosin Hcl 0.4 Mg Capsule) 0.4 mg PO BID [facility] Last Admin: 07/04/20 08:45 Dose: 0.4 mg Documented by: STROKE Vital Signs/Narrative: Vital Signs Temp Pulse Resp BP Pulse Ox 07/04/20 09:30 92 07/04/20 09:00 18 92 07/04/20 08:38 101.5 F H 07/04/20 07:20 100.2 F H 80 18 138/63 H 92 Medical Necessity - Tobacco Use Smoking Status: Current every day smoker Tobacco Use: Chew Assessment/Plan All Active Problems COVID-19 (Acute) Suicidal ideation (Acute) Nausea (Acute) Abdominal pain (Acute) Fever (Acute) # COVID 19 infection patient not needing any oxygen supplementation on breawthing treatment with bronchodilators on IV decadrone # Suicidal ideation now denies suicidal ideation, and says it was just a temporary feeling he had denies homicidal ideation too sitter in place will need mental health evaluation once he is stable. # Hyperlipidemia: on statin # BPH: on flomax and finasteride. DVT prophylaxis: on lovenox Inpatient E&M: [id number] Subs Hosp L2
--- NOTE | 2020-07-04 14:00 | CASEMGMT ---
SOCIAL WORK Follow up/Re-assessment for suicidal ideation Met with patient in room. Sitter protocol in place. Patient with positive COVID-19 results. Patient known to this worker from ER visit last evening. Patient denies any current suicidal ideation, plan or intent. Patient reports I think I was just looking for attention. Patient reports frustration with not being tested for COVID-19 two weeks ago while being seen by primary care physician. Patient states now I know what it is. Patient states much of his depression was stemming from not feeling well and feeling that something more was wrong. Much emotional support provided. Patient in agreement with grace for safety. Safety plan completed with patient and reviewed with son over the phone. Patient and son counseled on lethal means. Son and patient report fire arms have been taken out of the home. Son also reports able to assist with medication management. This worker and patient talked about stated plan last evening in regards to tie a noose to hang self. Patient stating, I shouldn't have said that. I don't know why I said that. I wouldn't be able to do that. Patient discussed protective factors being his children and grandchildren, friends and aminah in God. Patient open to Crisis follow up and establishing with counseling. Patient reports would also be open to trying an antidepressant, however, states no longer feeling depressed now that medical issues have been addressed. Call to Crisis, spoke with Krista. Crisis follow up via telephone appointment scheduled for tomorrow at 1pm with Brien. Krista states at that time Brien will be able to schedule on going counseling for patient. Son and patient updated on the above. All in agreement with plan. Safety plan signed by patient and copy added to chart, original provided to patient. Son to transport patient home upon discharge. Staff updated. Recommendation for sitter protocol to be discontinued at this time. Patient has contracted for [employer] in agreement. Plan: Home with Crisis follow up and counseling. Niharika Graham, TEMPLATE WORKER, [employer]
--- NOTE | 2020-07-04 14:05 | CASEMGMT ---
SOCIAL WORK Prior to follow up. Katie from Crisis had assessed patient and also cleared patient for home going. This worker's assessment, updated note and safety plan faxed to Crisis for continuity of care. Niharika Graham, INCUBATOR TENDER, SUBSTATION INSPECTOR
[2020-07-04] MEDS: Atorvastatin Calcium 20 MG Tablet PO (20:14)
[2020-07-04] MEDS: Finasteride 5 MG Tablet PO (20:14)
[2020-07-05] VITALS (17 sets, daily range): BP systolic 117–140; BP diastolic 42–67; PULSE 62–99; RESP 18–20; TEMP 36.9–40.6; O2SAT 91–96
[2020-07-05] MEDS: Acetaminophen 325 MG Tablet 650 MG PO ×2 (01:38→12:03)
--- NOTE | 2020-07-05 01:50 | NURSING ---
Pt noted to have fever of 105.0, ice packs applied to groin and axillary regions. Core cooling blanket applied under pt. Cool chucks pad applied to head, cold water encouraged to drink, new iv inserted to L hand, ivf infusing.
[2020-07-05] MEDS: 0.9% Normal Saline 1,000 ML 75 ML IV ×3 (03:34→21:35)
[2020-07-05] MEDS: Tamsulosin HCl 0.4 MG Capsule PO ×2 (07:50→21:36)
[2020-07-05] MEDS: Enoxaparin 40 MG/0.4 ML Syringe SC (07:50)
[2020-07-05] MEDS: Aspirin E.C. 81 MG Tablet PO (07:50)
[2020-07-05 07:51] LABS: Absolute Neutrophil Count 5.6 X10^3/uL (2.0-7.7); Basophil# 0.04 X10^3/uL; Basophil% 0.6 % (0-1); Eosinophil# 0.01 X10^3/uL; Eosinophils% 0.1 % (0-5); Hematocrit 38.2 % (40-54); Mean Corp Hgb Conc 31.4 g/dL (32-36); Mean Corpuscular Hgb 30.6 pg (27.0-32.0); Mean Corpuscular Volume 97.4 fL (80-94); Mean Platelet Vol. 9.8 fl (6.2-12.0); Monocyte# 0.56 X10^3/uL; NRBC Flagged by Analyzer 0 % (0-5); Neutrophil # 5.56 X10^3/uL (2.7-7.7); Neutrophil % 79.7 % (47-70); Platelet Count 192 K/mm3 (150-450); RBC Distribution Width CV 12.8 % (11.6-14.6); Red Blood Count 3.92 M/mm3 (4.6-6.2)
[2020-07-05 08:03] LABS: Anion Gap 5 (5-15); BUN 17 mg/dL (7-18); BUN/Creat Ratio 12.3 RATIO (10-20); Calcium,Total 7.8 mg/dL (8.5-10.1); Chloride 111 mmol/L (98-107); Creatinine, Serum 1.38 mg/dL (0.70-1.30); EST Glomerular Filtration Rate 53 mL/min (>60); Est Glom Filt Rate - Afr Amer 64 mL/min (>60); Estimated Creatinine Clearance 40.62 ml/min; Glucose 115 mg/dL (74-106); Potassium 4.1 mmol/L (3.5-5.1); Sodium Level 140 mmol/L (136-145)
--- NOTE | 2020-07-05 10:11 | NURSING ---
Pt sonTen called in for update.
--- NOTE | 2020-07-05 12:22 | NURSING ---
PT TEMP 101.2. GIVEN TYLENOL PER PRN ORDERS. DR CAO NOTIFIED ALSO DUE TO PT HAVING COOLING BLANKET ON. NEW ORDER FOR SCHEDULED IBUPROFEN.
[2020-07-05] MEDS: Ibuprofen 400 MG Tablet PO ×2 (12:56→21:36)
--- NOTE | 2020-07-05 13:15 | PN_ITS ---
Patient Problems: Active and Suspected Problems COVID-19 (Acute) Suicidal ideation (Acute) Subjective: Patient seen and examined. He states he feels well today and does not think he has been short of breath. He is on room air and saturating well. Patient however noted to have a persistent fever with temperature peaking at 105 Fahrenheit in the early hours of today. Review of systems otherwise negative. Labs and vitals reviewed. Vitals/I&O's: Vital Signs Temp Pulse Resp BP Pulse Ox 101.2 F H 76 20 H 137/60 H 95 07/05/20 12:02 07/05/20 11:13 07/05/20 11:13 07/05/20 11:13 07/05/20 11:13 Oxygen Delivery Method Room Air Weight: 224 lb 11.193 oz Body Mass Index (BMI) 34.1 Intake and Output for Last 24 Hours 07/03/20 07/04/20 07/05/20 23:59 23:59 23:59 Intake Total 2388 / 2388 2102.25 / 2102.25 Output Total 350 / 350 525 / 525 Balance 2037 / 2037 1577.25 / 1577.25 General: Alert, Oriented x3, Cooperative, No apparent distress HEENT: Atraumatic, PERRLA, EOMI, Normocephalic Oral: Moist Mucosa Neck: Supple, No JVD, Negative Carotid Bruits Lungs: - - diminished breath sounds bibasally, few crackles and wheezing. On room air. Cardiovascular: Regular rate, Regular Rhythm, Normal S1, Normal S2, No murmurs Abdomen: Bowel Sounds Present, Soft, Non Tender, Non-Distended, No Hepato- splenomegaly Extremities: No clubbing, No cyanosis, No edema, Capillary Refill Less than 3 Seconds Skin: No rashes, No breakdown Musculoskeletal: No Tenderness to Palpation of Joints or Extremities Lymphatic: No Cervical, Supraclavicular, or Inguinal Adenopathy Neurological: Cranial nerves II-XII grossly intact, Neuro grossly intact, Motor Exam 5/5 strength throughout Psych/Mental Status: Normal Affect, Appropriate, Alert and oriented to time, place, person, mood and affect Laboratory Results 07/05/20 07:45: WBC 7.0, RBC 3.92 L, Hgb 12.0 L, Hct 38.2 L, MCV 97.4 H, MCH 30.6, MCHC 31.4 L, RDW Std Deviation 46.0 H, RDW Coeff of José Miguel 12.8, Plt Count 192, MPV 9.8, Immature Gran % (Auto) 1.600 H, Neut % (Auto) 79.7 H, Lymph % (Auto) 10.0 L, [place] % (Auto) 8.0, Eos % (Auto) 0.1, Baso % (Auto) 0.6, Absolute Neuts (auto) 5.6, Absolute Lymphs (auto) 0.70 L, Nucleated RBC % 0 07/05/20 07:45: Sodium 140, Potassium 4.1, Chloride 111 H, Carbon Dioxide 24.0, Anion Gap 5, BUN 17, Creatinine 1.38 H, Estim Creat Clear Calc 40.62, Est GFR (MDRD) Af Amer 64, Est GFR (MDRD) Non-Af 53 L, BUN/Creatinine Ratio 12.3, Glucose 115 H, Calcium 7.8 L Current Medications Acetaminophen (Acetaminophen 325 Mg Tablet) 650 mg PO Q6H PRN PRN PRN Reason: HEADACHE/FEVER (T>100F) Last Admin: 07/05/20 12:03 Dose: 650 mg Documented by: Albuterol Sulfate (Albuterol Sulfate Hfa 6.7 Gm Inhaler (200 Puffs)) 1 puff IH Q2H PRN PRN PRN Reason: SHORTNESS OF BREATH Aspirin (Aspirin E.C. 81 Mg Tablet) 81 mg PO DAILY@0800 [facility] Last Admin: 07/05/20 07:50 Dose: 81 mg Documented by: Atorvastatin Calcium (Atorvastatin Calcium 20 Mg Tablet) 20 mg PO QHS [facility] Last Admin: 07/04/20 20:14 Dose: 20 mg Documented by: Enoxaparin Sodium (Enoxaparin 40 Mg/0.4 Ml Syringe) 40 mg SC DAILY [facility] Last Admin: 07/05/20 07:50 Dose: 40 mg Documented by: Finasteride (Finasteride 5 Mg Tablet) 5 mg PO QHS [facility] Last Admin: 07/04/20 20:14 Dose: 5 mg Documented by: Sodium Chloride () 250 mls @ 15 mls/hr IV .[id number] PRN PRN Reason: Saline Flush Sodium Chloride () 1,000 mls @ 75 mls/hr IV .[id number] [facility] Last Admin: 07/05/20 12:03 Dose: 75 mls/hr Documented by: Ibuprofen (Ibuprofen 400 Mg Tablet) 400 mg PO Q8 [facility] Last Admin: 07/05/20 12:56 Dose: 400 mg Documented by: Miscellaneous Information (Inhaler, Assist Devices 1 Each Spacer) 1 each INHALATION PRN PRN PRN Reason: WITH ALBUTEROL MDI Nicotine (Nicotine 14 Mg Patch) 14 mg TRANSDERM. DAILY [facility] Last Admin: 07/05/20 07:50 Dose: 14 mg Documented by: Nutritional Formula (Lactose Free) (Ensure Enlive 120 Ml Liquid) 120 ml PO 4X/DAY [facility] Last Admin: 07/05/20 12:56 Dose: 120 ml Documented by: Sodium Chloride (0.9% Saline Lock 10 Ml Syringe) 10 - 40 ml IV UD PRN PRN Reason: SALINE FLUSH Last Admin: 07/04/20 09:51 Dose: 10 ml Documented by: Tamsulosin HCl (Tamsulosin Hcl 0.4 Mg Capsule) 0.4 mg PO BID [facility] Last Admin: 07/05/20 07:50 Dose: 0.4 mg Documented by: STROKE Vital Signs/Narrative: Vital Signs Temp Pulse Resp BP Pulse Ox 07/05/20 12:02 101.2 F H 07/05/20 11:30 100.8 F H 07/05/20 11:13 99.4 F H 76 20 H 137/60 H 95 Medical Necessity - Tobacco Use Smoking Status: Current every day smoker Tobacco Use: Chew Assessment/Plan All Active Problems COVID-19 (Acute) Suicidal ideation (Acute) Nausea (Acute) Abdominal pain (Acute) Fever (Acute) # COVID 19 infection * patient not needing any oxygen supplementation * has been running a fever, peaking at 105F * on breawthing treatment with bronchodilators * on IV decadrone * PO tylenol and ibuprofen prn, as well as cooling blankets. * # Suicidal ideation * now denies suicidal ideation, and says it was just a temporary feeling he had * denies homicidal ideation too * reviewed and cleared by mental health crises. * # Hyperlipidemia: on statin # BPH: on flomax and finasteride. DVT prophylaxis: on lovenox *
--- NOTE | 2020-07-05 15:33 | NURSING ---
Dr Forrester updated on pt - MD states will keep another day
--- NOTE | 2020-07-05 16:30 | CASEMGMT ---
Social Work Note SW placed a call to Brien Henry at [facility] and updated Brien that pt is still at [facility]. Brien states he spoke to pt today and pt appears in good spirits. Grace Garcia [employer], [employer]
[2020-07-05] MEDS: Finasteride 5 MG Tablet PO (21:36)
[2020-07-05] MEDS: Atorvastatin Calcium 20 MG Tablet PO (21:36)
[2020-07-06] VITALS (7 sets, daily range): BP systolic 123–153; BP diastolic 60–88; PULSE 66–78; RESP 17–20; TEMP 36.5–37.8; O2SAT 93–95
[2020-07-06] MEDS: Ibuprofen 400 MG Tablet PO ×3 (04:53→22:19)
[2020-07-06 06:49] LABS: Absolute Lymphocyte Count 0.58 X10^3/uL (0.83-4.51); Absolute Neutrophil Count 5.2 X10^3/uL (2.0-7.7); Basophil# 0.02 X10^3/uL; Basophil% 0.3 % (0-1); Eosinophils% 1.5 % (0-5); Hematocrit 35.4 % (40-54); Hemoglobin 11.2 g/dL (13.0-16.5); Lymphocyte # 0.58 X10^3/ul (4.0); Lymphocyte % 8.8 % (19-41); Mean Corp Hgb Conc 31.6 g/dL (32-36); Mean Corpuscular Hgb 30.6 pg (27.0-32.0); Mean Corpuscular Volume 96.7 fL (80-94); Mean Platelet Vol. 9.8 fl (6.2-12.0); Monocyte# 0.57 X10^3/uL; Monocyte% 8.6 % (0-10); NRBC Flagged by Analyzer 0 % (0-5); Neutrophil % 78.8 % (47-70); POSITIVE DIFFERENTIAL YES; Platelet Count 194 K/mm3 (150-450); RBC Distribution Width SD 46.2 fl (35.1-43.9); Red Blood Count 3.66 M/mm3 (4.6-6.2); White Blood Count 6.6 K/mm3 (4.4-11.0)
[2020-07-06 07:05] LABS: Anion Gap 7 (5-15); BUN 16 mg/dL (7-18); BUN/Creat Ratio 15.1 RATIO (10-20); Calcium,Total 7.9 mg/dL (8.5-10.1); Chloride 110 mmol/L (98-107); Creatinine, Serum 1.06 mg/dL (0.70-1.30); EST Glomerular Filtration Rate 71 mL/min (>60); Est Glom Filt Rate - Afr Amer 86 mL/min (>60); Estimated Creatinine Clearance 52.88 ml/min; Glucose 96 mg/dL (74-106); Sodium Level 140 mmol/L (136-145)
[2020-07-06 07:17] LABS: Differential Indicated SCAN CRITERIA MET
[2020-07-06 07:18] LABS: Differential Comment SCANNED
--- NOTE | 2020-07-06 09:44 | RAD_ITS ---
STUDY: X-RAY CHEST REASON FOR EXAM: Male, 79 years old. FEVER. C/O SINUS PROBLEMS, H/A? BEST INSPR. EFFORT. COVID-19 TECHNIQUE: Single AP portable view of the chest. COMPARISON: None. FINDINGS: Limited inspiration. Mild increased markings at the right lung base. There is no demonstrated pleural abnormality. Normal size heart. Normal mediastinum and gurpreet. Normal visualized pulmonary arteries. There is atherosclerotic tortuosity of the aortic arch and descending thoracic aorta. Normal visualized thoracic spine. Normal visualized ribs, clavicles, and shoulders. There is no demonstrated abnormality of the visualized soft tissue structures of the upper abdomen. RAD/Chest 1 View (Portable) IMPRESSION: Mild increased markings at the right lung base. Electronically Signed: Merrick Shelton, at 15:37 EDT , Service support ,
[2020-07-06] MEDS: Aspirin E.C. 81 MG Tablet PO (11:03)
[2020-07-06] MEDS: Tamsulosin HCl 0.4 MG Capsule PO ×2 (11:03→22:19)
[2020-07-06] MEDS: Enoxaparin 40 MG/0.4 ML Syringe SC (11:06)
--- NOTE | 2020-07-06 11:09 | CT_ITS ---
STUDY: CT CHEST WITH CONTRAST REASON FOR EXAM: Male, 79 years old. Pneumonia, COVID +, fever today, SOB, nausea/vomiting. RADIATION DOSAGE (If Supplied By Facility): CTDIvol = ( 21.27 ) mGy, DLP = ( 770.58 ) mGycm TECHNIQUE: Transaxial imaging was performed following intravenous administration of IV 100ML ISOVUE 300. Multiplanar coronal and sagittal images were reformatted. Individualized dose optimization techniques were used for this CT. COMPARISON: X-ray dated 07/06/2020. FINDINGS: Patient motion. HEART: Coronary artery disease. No significant pericardial effusion. Mild cardiomegaly. AORTA/GREAT VESSELS: Vascular calcifications. No aneurysm. No dissection. PULMONARY ARTERIES: No hypertension. No obvious embolism given phase of contrast. LUNGS/AIRWAYS: And bilateral peripheral groundglass airspace opacities (axial image 42 series 1002). PLEURA: Trace pleural effusions. No pneumothorax. MEDIASTINUM/THYROID: Normal thyroid. Multiple enlarged mediastinal lymph nodes measuring up to 1.9 cm (axial image 31). Multiple enlarged subcarinal lymph nodes measuring up to 2.6 cm (axial image 46). Slightly enlarged axillary lymph nodes measuring up to 1.8 cm (axial image 34). Enlarged upper abdominal/precardiac lymph nodes measuring up to 1.9 cm (axial image 65). Enlarged cervical lymph nodes measuring up to 1.5 cm (axial image 14). SOFT TISSUES: No acute process. OSSEOUS STRUCTURES: Degenerative changes. No acute process. UPPER ABDOMEN/ESOPHAGUS: Duodenal diverticulum. Pancreatic atrophy. Hepatic steatosis without focal hepatic lesions. Portal vein patent. Gallstone. No acute process. CT/Chest WITH Contrast IMPRESSION: Multifocal peripheral airspace opacities (potential atypical infection given clinical history) Multi regional enlarged lymph nodes (possibly neoplastic/inflammatory/reactive; correlate medical history and WBC with differential) Trace pleural effusions Additional nonemergent findings, as above Electronically Signed: Mariano Hassan DO at 11:58 EDT Tel , Service support ,
[2020-07-06] MEDS: 0.9% Saline Lock 10 ML Syringe IV ×2 (11:24→13:00)
[2020-07-06] MEDS: 0.9% Normal Saline 1,000 ML 75 ML IV (11:24)
--- NOTE | 2020-07-06 11:24 | PN_ITS ---
Patient Problems: Active and Suspected Problems COVID-19 (Acute) Suicidal ideation (Acute) Subjective: Patient seen and examined. He complains of feeling mildly short of breath today. he denies coughing, chest pain, palpitations, dizziness, nausea or vomiting or diarrhea. Review of systems is otherwise negative. labs and vitals reviewed. Vitals/I&O's: Vital Signs Temp Pulse Resp BP Pulse Ox 99.9 F H 75 20 H 131/60 H 93 07/06/20 10:59 07/06/20 10:59 07/06/20 10:59 07/06/20 10:59 07/06/20 10:59 Oxygen Flow Rate (L/min) 92 Oxygen Delivery Method Room Air Weight: 224 lb 11.193 oz Body Mass Index (BMI) 34.1 Intake and Output for Last 24 Hours 07/04/20 07/05/20 07/06/20 23:59 23:59 23:59 Intake Total 2388 / 2388 3017.25 / 3017.25 Output Total 350 / 350 525 / 525 Balance 2037 / 2037 2492.25 / 2492.25 General: Alert, Oriented x3, Cooperative, No apparent distress HEENT: Atraumatic, PERRLA, EOMI, Normocephalic Oral: Moist Mucosa Neck: Supple, No JVD, Negative Carotid Bruits Lungs: - - markedly decreased breath sounds bibasally, no wheezes or crackles. On room air. Cardiovascular: Regular rate, Regular Rhythm, Normal S1, Normal S2, No murmurs Abdomen: Bowel Sounds Present, Soft, Non Tender, Non-Distended, No Hepato- splenomegaly Extremities: No clubbing, No cyanosis, No edema, Capillary Refill Less than 3 Seconds Skin: No rashes, No breakdown Musculoskeletal: No Tenderness to Palpation of Joints or Extremities Lymphatic: No Cervical, Supraclavicular, or Inguinal Adenopathy Neurological: Cranial nerves II-XII grossly intact, Neuro grossly intact, Motor Exam 5/5 strength throughout Psych/Mental Status: Normal Affect, Appropriate, Alert and oriented to time, place, person, mood and affect Laboratory Results 07/06/20 06:22: WBC 6.6, RBC 3.66 L, Hgb 11.2 L, Hct 35.4 L, MCV 96.7 H, MCH 30.6, MCHC 31.6 L, RDW Std Deviation 46.2 H, RDW Coeff of José Miguel 13.0, Plt Count 194, MPV 9.8, Immature Gran % (Auto) 2.000 H, Neut % (Auto) 78.8 H, Lymph % (Auto) 8.8 L, [place] % (Auto) 8.6, Eos % (Auto) 1.5, Baso % (Auto) 0.3, Absolute Neuts (auto) 5.2, Absolute Lymphs (auto) 0.58 L, Nucleated RBC % 0, Differential Comment SCANNED 07/06/20 06:22: Sodium 140, Potassium 4.0, Chloride 110 H, Carbon Dioxide 23.0, Anion Gap 7, BUN 16, Creatinine 1.06, Estim Creat Clear Calc 52.88, Est GFR (MDRD) Af Amer 86, Est GFR (MDRD) Non-Af 71, BUN/Creatinine Ratio 15.1, Glucose 96, Calcium 7.9 L Current Medications Acetaminophen (Acetaminophen 325 Mg Tablet) 650 mg PO Q6H PRN PRN PRN Reason: HEADACHE/FEVER (T>100F) Last Admin: 07/05/20 12:03 Dose: 650 mg Documented by: Albuterol Sulfate (Albuterol Sulfate Hfa 6.7 Gm Inhaler (200 Puffs)) 1 puff IH Q2H PRN PRN PRN Reason: SHORTNESS OF BREATH Aspirin (Aspirin E.C. 81 Mg Tablet) 81 mg PO DAILY@0800 [facility] Last Admin: 07/06/20 11:03 Dose: 81 mg Documented by: Atorvastatin Calcium (Atorvastatin Calcium 20 Mg Tablet) 20 mg PO QHS [facility] Last Admin: 07/05/20 21:36 Dose: 20 mg Documented by: Enoxaparin Sodium (Enoxaparin 40 Mg/0.4 Ml Syringe) 40 mg SC DAILY [facility] Last Admin: 07/06/20 11:06 Dose: 40 mg Documented by: Finasteride (Finasteride 5 Mg Tablet) 5 mg PO QHS [facility] Last Admin: 07/05/20 21:36 Dose: 5 mg Documented by: Sodium Chloride () 250 mls @ 15 mls/hr IV .[id number] PRN PRN Reason: Saline Flush Sodium Chloride () 1,000 mls @ 75 mls/hr IV .[id number] [facility] Last Admin: 07/05/20 21:35 Dose: 75 mls/hr Documented by: Levofloxacin (Levaquin Iv) 750 mg in 150 mls @ 100 mls/hr IV Q24 [facility] Ibuprofen (Ibuprofen 400 Mg Tablet) 400 mg PO Q8 [facility] Last Admin: 07/06/20 04:53 Dose: 400 mg Documented by: Iopamidol (Contrast Allergy Safety Check) 0 ml IV X1 [facility] Miscellaneous Information (Inhaler, Assist Devices 1 Each Spacer) 1 each INHALATION PRN PRN PRN Reason: WITH ALBUTEROL MDI Nicotine (Nicotine 14 Mg Patch) 14 mg TRANSDERM. DAILY [facility] Last Admin: 07/06/20 11:03 Dose: 14 mg Documented by: Nutritional Formula (Lactose Free) (Ensure Enlive 120 Ml Liquid) 120 ml PO 4X/DAY [facility] Last Admin: 07/06/20 11:03 Dose: 120 ml Documented by: Sodium Chloride (0.9% Saline Lock 10 Ml Syringe) 10 - 40 ml IV UD PRN PRN Reason: SALINE FLUSH Last Admin: 07/04/20 09:51 Dose: 10 ml Documented by: Tamsulosin HCl (Tamsulosin Hcl 0.4 Mg Capsule) 0.4 mg PO BID [facility] Last Admin: 07/06/20 11:03 Dose: 0.4 mg Documented by: STROKE Vital Signs/Narrative: Vital Signs Temp Pulse Resp BP Pulse Ox 07/06/20 10:59 99.9 F H 75 20 H 131/60 H 93 Medical Necessity - Tobacco Use Smoking Status: Current every day smoker Tobacco Use: Chew Assessment/Plan All Active Problems COVID-19 (Acute) Suicidal ideation (Acute) Nausea (Acute) Abdominal pain (Acute) Fever (Acute) # Pneumonia due to COVID 19 infection * still running a fever, and today complains of some shortness of breath * CXR done today showed bilateral infiltrates; * wbc is only 6.6 * will start IV levofloxacin (has penicillin allergy) * on IV decadrone * not needing any oxygen support at this time * consult ID * PO tylenol and ibuprofen prn, as well as cooling blankets. * # Suicidal ideation * now denies suicidal ideation, and says it was just a temporary feeling he had * denies homicidal ideation too * reviewed and cleared by mental health crises. * # Hyperlipidemia: on statin # BPH: on flomax and finasteride. DVT prophylaxis: on lovenox * Inpatient E&M: 40732 Subs Hosp L2
[2020-07-06] MEDS: levoFLOXacin IV 750 MG/150 ML BAG 100 MG IV (13:00)
[2020-07-06] MEDS: Acetaminophen 325 MG Tablet 650 MG PO (13:49)
[2020-07-06] MEDS: Atorvastatin Calcium 20 MG Tablet PO (22:19)
[2020-07-06] MEDS: Finasteride 5 MG Tablet PO (22:19)
[2020-07-07 02:17] VITALS: BP 142/69; PULSE 68; RESP 16; TEMP 36.7; O2SAT 94
[2020-07-07] MEDS: 0.9% Normal Saline 1,000 ML 75 ML IV (02:21)
[2020-07-07 05:05] VITALS: BP 154/69; PULSE 66; RESP 17; TEMP 36.9; O2SAT 93
[2020-07-07] MEDS: Ibuprofen 400 MG Tablet PO (05:06)
[2020-07-07 06:56] VITALS: O2SAT 95
[2020-07-07 08:28] LABS: Absolute Lymphocyte Count 0.58 X10^3/uL (0.83-4.51); Basophil# 0.04 X10^3/uL; Basophil% 0.9 % (0-1); Eosinophil# 0.13 X10^3/uL; Eosinophils% 2.9 % (0-5); Hematocrit 34.8 % (40-54); Hemoglobin 11.2 g/dL (13.0-16.5); Lymphocyte # 0.58 X10^3/ul (4.0); Lymphocyte % 13.1 % (19-41); Mean Corp Hgb Conc 32.2 g/dL (32-36); Mean Corpuscular Hgb 30.9 pg (27.0-32.0); Mean Corpuscular Volume 95.9 fL (80-94); Mean Platelet Vol. 9.7 fl (6.2-12.0); Monocyte# 0.52 X10^3/uL; Monocyte% 11.7 % (0-10); NRBC Flagged by Analyzer 0 % (0-5); Neutrophil # 2.99 X10^3/uL (2.7-7.7); Neutrophil % 67.6 % (47-70); POSITIVE DIFFERENTIAL YES; Platelet Count 197 K/mm3 (150-450); RBC Distribution Width CV 12.9 % (11.6-14.6); RBC Distribution Width SD 46.1 fl (35.1-43.9); Red Blood Count 3.63 M/mm3 (4.6-6.2); White Blood Count 4.4 K/mm3 (4.4-11.0)
[2020-07-07 08:53] LABS: Anion Gap 7 (5-15); BUN 14 mg/dL (7-18); BUN/Creat Ratio 13.6 RATIO (10-20); Calcium,Total 8.1 mg/dL (8.5-10.1); Chloride 113 mmol/L (98-107); Creatinine, Serum 1.03 mg/dL (0.70-1.30); Differential Comment SCANNED; Differential Indicated SCAN CRITERIA MET; EST Glomerular Filtration Rate 74 mL/min (>60); Est Glom Filt Rate - Afr Amer 89 mL/min (>60); Estimated Creatinine Clearance 54.42 ml/min; Glucose 99 mg/dL (74-106); Potassium 3.9 mmol/L (3.5-5.1); Sodium Level 143 mmol/L (136-145)
[2020-07-07 09:57] VITALS: BP 144/71; PULSE 71; RESP 18; TEMP 37; O2SAT 94
[2020-07-07] MEDS: Aspirin E.C. 81 MG Tablet PO (10:02)
[2020-07-07] MEDS: Tamsulosin HCl 0.4 MG Capsule PO (10:02)
[2020-07-07] MEDS: levoFLOXacin IV 750 MG/150 ML BAG 100 MG IV (10:03)
[2020-07-07] MEDS: Enoxaparin 40 MG/0.4 ML Syringe SC (10:03)
--- NOTE | 2020-07-07 11:10 | DCINST_ITS ---
- Discharge Diagnoses Current Active Problems: Current Active and Chronic Problems COVID-19 (Acute) Suicidal ideation (Acute) You will use the following diet at home:: Cardiac Your food should be the consistency of: Regular Your liquids should be the consistency of: Regular/Thin Discharge Activity: Return to Normal Activity Weight Bearing Status: Weight bearing as tolerated Call your doctor if you observe: Fever of 101 or Higher, Shortness of breath, Increased palpitations (irregular heartbeat) Instructions: ED Fever Control (Adult) Additional Instructions: continue to remain in self isolation till July 17, to complete 14 days of isolation since diagnosis of COVID. Allergies/Adverse Reactions: Allergies Penicillins Allergy (Verified 03/18/20 09:05) Rash promethazine HCl [From Phenergan] Adverse Reaction (Verified 03/18/20 09:05) Unknown SEVERE CONFUSION, STROKE LIKE SYMPTOMS Medications to take at Discharge Finasteride [Proscar] 5 mg PO QHS 02/26/15 Simvastatin [Zocor] 40 mg PO QHS 02/26/15 Tamsulosin HCl [Flomax] 0.4 mg PO BID 02/26/15 Aspirin E.C. [Ecotrin] 81 mg PO DAILY@0800 07/09/17 Albuterol IH (ProAir) [Proair Hfa] 1 - 2 puff INHALATION Q6H PRN PRN #1 inhaler 07/07/20 The following prescriptions were given: Albuterol IH (ProAir) [Proair Hfa] 1 - 2 puff INHALATION Q6H PRN PRN #1 inhaler PRN Reason: Sob &/Or Wheezing Transmission Status: Pending to [facility] Primary Care Physician: Alejandra Mcdonald DO [Primary Care Provider] - Please follow up with your Primary Care Physician in: 1-2 weeks Test Results: Test results from this visit will be discussed in further detail at your follow- up appointment, if applicable. Proposed Discharge Date: 07/07/20
--- NOTE | 2020-07-07 11:13 | DS.PCM_ITS ---
Discharge Date and Diagnosis - Problem List Patient Problems: Active and Suspected Problems COVID-19 (Acute) Suicidal ideation (Acute) Date of Admission: 07/04/20 Date of Discharge: 07/07/20 - Primary Discharge Diagnosis Acute Problems: Active Problems COVID-19 (Acute) Suicidal ideation (Acute) Hospital Course and Treatment Imaging Results: Diagnostic Data Chest X-Ray 07/06/20 09:44 IMPRESSION: Mild increased markings at the right lung base. Electronically Signed: Merrick Shelton, at 15:37 EDT , Service support , Chest CT 07/06/20 11:09 IMPRESSION: Multifocal peripheral airspace opacities (potential atypical infection given clinical history) Multi regional enlarged lymph nodes (possibly neoplastic/inflammatory/reactive; correlate medical history and WBC with differential) Trace pleural effusions Additional nonemergent findings, as above Electronically Signed: Mariano Hassan, DO at 11:58 EDT Tel , Service support , Consultations 07/04/20 02:53 Consult: Mental Health/Crisis Routine Reason for consult?: suicidal ideation Date Notified:: 07/04/20 Time Notified:: 09:15 infectious diseases- Dr Aguillon Operations: None Procedures: None Summary of Care Provided: The patient is a 79 year old M with a past medical history as outlined was admitted through the ED on 07/04/2020 with a complaint of shortness of breath. Symptoms began about 2 weeks prior to admission. He states he had a telehealth appointment for the symptoms and he was told he may have mumps. However shortness of breath still persisted and was tested for COVID-19 and this was positive. Shortness of breath however persisted with increasing respiratory distress so he came into the ED. In the ED, he complained of suicidal ideation. He was admitted and managed for COVID-19 infection and also suicidal ideation. On admission, patient subsequently denied any suicidal ideation and said mentally feeling he did not feel that way anymore. Crisis team evaluated patient and cleared him for any suicidal ideation. Was put on breathing treatments with bronchodilators. Patient never needed any oxygen supplementation during this admission. Infectious disease was consulted. Patient stay was complicated by fever which improved with Tylenol and ibuprofen and cooling blankets. Chest x-ray was done which showed bilateral peripheral opacities typical of atypical infection which was medicated with Covid. He was started on IV ceftriaxone and azithromycin. Patient continued to improve and felt much better on the day of discharge. Was saturating at 94% on room air and so did not require any oxygen on discharge. I did discuss with infectious disease about discharging patient on antibiotics. Infectious disease however third patient's fever had resolved and he felt better and did not need any oxygen supplementation so antibiotics was not indicated. Patient was therefore discharged home on 07/07/2020 he was discharged with a prescription for albuterol inhaler. Patient was counseled to continue to remain in self- isolation until the second, to complete 14 days of isolation since diagnosis of Covid. He is to follow-up with his primary care doctor after the isolation period is over. Patient seen and examined prior to discharge. He felt very well and had no complaints. Previous times otherwise negative. Labs and vitals reviewed. Home medication reviewed and reconciled. On examination Vitals Vital Signs Temp Pulse Resp BP Pulse Ox 98.6 F 71 18 144/71 H 94 07/07/20 09:57 07/07/20 09:57 07/07/20 09:57 07/07/20 09:57 07/07/20 09:57 [] General: Alert, Oriented x3, Cooperative, No apparent distress HEENT: Atraumatic, PERRLA, EOMI, Normocephalic Oral: Moist Mucosa Neck: Supple, No JVD, Negative Carotid Bruits Lungs: - - minimally decreased breath sounds bibasally, no wheezes or crackles. On room air. Cardiovascular: Regular rate, Regular Rhythm, Normal S1, Normal S2, No murmurs Abdomen: Bowel Sounds Present, Soft, Non Tender, Non-Distended, No Hepato- splenomegaly Extremities: No clubbing, No cyanosis, No edema, Capillary Refill Less than 3 Seconds Skin: No rashes, No breakdown Musculoskeletal: No Tenderness to Palpation of Joints or Extremities Lymphatic: No Cervical, Supraclavicular, or Inguinal Adenopathy Neurological: Cranial nerves II-XII grossly intact, Neuro grossly intact, Motor Exam 5/5 strength throughout Psych/Mental Status: Normal Affect, Appropriate, Alert and oriented to time, place, person, mood and affect Plan is for discharge home today. Patient Problems: Active and Suspected Problems COVID-19 (Acute) Suicidal ideation (Acute) - Physical Exam Vitals/I&O's: Vital Signs Temp Pulse Resp BP Pulse Ox 98.6 F 71 18 144/71 H 94 07/07/20 09:57 07/07/20 09:57 07/07/20 09:57 07/07/20 09:57 07/07/20 09:57 Oxygen Flow Rate (L/min) 1 Oxygen Delivery Method Room Air Weight: 224 lb 11.193 oz Body Mass Index (BMI) 34.1 Intake and Output for Last 24 Hours 07/05/20 07/06/20 07/07/20 23:59 23:59 23:59 Intake Total 3017.25 / 3017.25 1999 1100 / 1100 Output Total 525 / 525 Balance 2492.25 / 2492.25 1999 1100 / 1100 Laboratory Results 07/07/20 08:18: WBC 4.4, RBC 3.63 L, Hgb 11.2 L, Hct 34.8 L, MCV 95.9 H, MCH 30.9, MCHC 32.2, RDW Std Deviation 46.1 H, RDW Coeff of José Miguel 12.9, Plt Count 197, MPV 9.7, Immature Gran % (Auto) 3.800 H, Neut % (Auto) 67.6, Lymph % (Auto) 13.1 L, [place] % (Auto) 11.7 H, Eos % (Auto) 2.9, Baso % (Auto) 0.9, Absolute Neuts (auto) 3.0, Absolute Lymphs (auto) 0.58 L, Nucleated RBC % 0, Differential Comment SCANNED 07/07/20 08:18: Sodium 143, Potassium 3.9, Chloride 113 H, Carbon Dioxide 23.0, Anion Gap 7, BUN 14, Creatinine 1.03, Estim Creat Clear Calc 54.42, Est GFR (MDRD) Af Amer 89, Est GFR (MDRD) Non-Af 74, BUN/Creatinine Ratio 13.6, Glucose 99, Calcium 8.1 L Current Medications Acetaminophen (Acetaminophen 325 Mg Tablet) 650 mg PO Q6H PRN PRN PRN Reason: HEADACHE/FEVER (T>100F) Last Admin: 07/06/20 13:49 Dose: 650 mg Documented by: Albuterol Sulfate (Albuterol Sulfate Hfa 6.7 Gm Inhaler (200 Puffs)) 1 puff IH Q2H PRN PRN PRN Reason: SHORTNESS OF BREATH Aspirin (Aspirin E.C. 81 Mg Tablet) 81 mg PO DAILY@0800 [facility] Last Admin: 07/07/20 10:02 Dose: 81 mg Documented by: Atorvastatin Calcium (Atorvastatin Calcium 20 Mg Tablet) 20 mg PO QHS [facility] Last Admin: 07/06/20 22:19 Dose: 20 mg Documented by: Enoxaparin Sodium (Enoxaparin 40 Mg/0.4 Ml Syringe) 40 mg SC DAILY [facility] Last Admin: 07/07/20 10:03 Dose: 40 mg Documented by: Finasteride (Finasteride 5 Mg Tablet) 5 mg PO QHS [facility] Last Admin: 07/06/20 22:19 Dose: 5 mg Documented by: Sodium Chloride () 250 mls @ 15 mls/hr IV .[id number] PRN PRN Reason: Saline Flush Sodium Chloride () 1,000 mls @ 75 mls/hr IV .[id number] [facility] Last Admin: 07/07/20 02:21 Dose: 75 mls/hr Documented by: Levofloxacin (Levaquin Iv) 750 mg in 150 mls @ 100 mls/hr IV Q24 [facility] Last Admin: 07/07/20 10:03 Dose: 100 mls/hr Documented by: Ibuprofen (Ibuprofen 400 Mg Tablet) 400 mg PO Q8 [facility] Last Admin: 07/07/20 05:06 Dose: 400 mg Documented by: Miscellaneous Information (Inhaler, Assist Devices 1 Each Spacer) 1 each INHALATION PRN PRN PRN Reason: WITH ALBUTEROL MDI Nicotine (Nicotine 14 Mg Patch) 14 mg TRANSDERM. DAILY [facility] Last Admin: 07/07/20 10:04 Dose: 14 mg Documented by: Nutritional Formula (Lactose Free) (Ensure Enlive 120 Ml Liquid) 120 ml PO 4X/DAY [facility] Last Admin: 07/06/20 22:19 Dose: 120 ml Documented by: Sodium Chloride (0.9% Saline Lock 10 Ml Syringe) 10 - 40 ml IV UD PRN PRN Reason: SALINE FLUSH Last Admin: 07/06/20 13:00 Dose: 10 ml Documented by: Tamsulosin HCl (Tamsulosin Hcl 0.4 Mg Capsule) 0.4 mg PO BID [facility] Last Admin: 07/07/20 10:02 Dose: 0.4 mg Documented by: Discharge Diet: Low fat/ Low Cholesterol Discharge Activity: Return to Normal Activity Weight Bearing Status: Weight bearing as tolerated Call your doctor if you observe: Fever of 101 or Higher, Shortness of breath, I ncreased palpitations (irregular heartbeat) Home Medications: Medications to take at Discharge Finasteride [Proscar] 5 mg PO QHS 02/26/15 Simvastatin [Zocor] 40 mg PO QHS 02/26/15 Tamsulosin HCl [Flomax] 0.4 mg PO BID 02/26/15 Aspirin E.C. [Ecotrin] 81 mg PO DAILY@0800 07/09/17 Albuterol IH (ProAir) [Proair Hfa] 1 - 2 puff INHALATION Q6H PRN PRN #1 inhaler 07/07/20 Following Prescriptions Were Given to Patient: Albuterol IH (ProAir) [Proair Hfa] 1 - 2 puff INHALATION Q6H PRN PRN #1 inhaler PRN Reason: Sob &/Or Wheezing Transmission Status: Received by [facility] ([email or web address][id number] Primary Care Physician: Alejandra Mcdonald DO [Primary Care Provider] - Please follow up with your Primary Care Physician in: 1-2 weeks Patient Instructions: ED Fever Control (Adult) Disposition: Home Minutes spent on discharge:: 35 Patient Condition:: Stable Medical Necessity - Tobacco Use Smoking Status: Current every day smoker Tobacco Use: Chew Meaningful Use Info Meaningful Use Diagnoses (Choose all that apply): None applicable Inpatient E&M: 59144 Disch Hosp
[2020-07-07 13:57] VITALS: BP 159/90; PULSE 87; RESP 18; TEMP 36.8; O2SAT 95
--- NOTE | 2020-07-07 16:00 | PCM.HP.ID ---
Problem List (1) COVID-19 Status: Acute Reason for Consult: covid Consulted by: Dr. Forrester History of Present Illness: The patient is a 79 year old M admitted earlier this week. Reports 12 days of aches, fever, headache, cough, and sore throat. Some change in taste/smell. No n/v/d. Lives alone. Admitted with some suicidal ideation. Did not get steroids or O2. Due to fever, started on levaquin yesterday. Full ROS performed and neg except as noted above. - Medical History Allergies/Adverse Reactions: Allergies Penicillins Allergy (Verified 03/18/20 09:05) Rash promethazine HCl [From Phenergan] Adverse Reaction (Verified 03/18/20 09:05) Unknown SEVERE CONFUSION, STROKE LIKE SYMPTOMS Home Medications: Ambulatory Orders Medication Instructions Recorded Finasteride [Proscar] 5 mg PO QHS 02/26/15 Simvastatin [Zocor] 40 mg PO QHS 02/26/15 Tamsulosin HCl [Flomax] 0.4 mg PO BID 02/26/15 Aspirin E.C. [Ecotrin] 81 mg PO DAILY@0800 07/09/17 Albuterol IH (ProAir) [Proair Hfa] 1 - 2 puff INHALATION Q6H PRN PRN 07/07/20 #1 inhaler - Social History SMOKING STATUS:: Current every day smoker Vital Signs Temp Pulse Resp BP Pulse Ox 98.2 F 87 18 159/90 H 95 07/07/20 13:57 07/07/20 13:57 07/07/20 13:57 07/07/20 13:57 07/07/20 13:57 Oxygen Flow Rate (L/min) 1 Oxygen Delivery Method Room Air Weight: 101.922 kg Body Mass Index (BMI) 34.1 Laboratory Tests Past 24 Hrs 07/07/20 07/07/20 08:18 08:18 WBC 4.4 RBC 3.63 L Hgb 11.2 L Hct 34.8 L MCV 95.9 H MCH 30.9 MCHC 32.2 RDW Std Deviation 46.1 H RDW Coeff of José Miguel 12.9 Plt Count 197 MPV 9.7 Immature Gran % (Auto) 3.800 H Neut % (Auto) 67.6 Lymph % (Auto) 13.1 L [place] % (Auto) 11.7 H Eos % (Auto) 2.9 Baso % (Auto) 0.9 Absolute Neuts (auto) 3.0 Absolute Lymphs (auto) 0.58 L Nucleated RBC % 0 Differential Comment SCANNED Sodium 143 Potassium 3.9 Chloride 113 H Carbon Dioxide 23.0 Anion Gap 7 BUN 14 Creatinine 1.03 Estim Creat Clear Calc 54.42 Est GFR (MDRD) Af Amer 89 Est GFR (MDRD) Non-Af 74 BUN/Creatinine Ratio 13.6 Glucose 99 Calcium 8.1 L - Other Studies Radiology: [] reviewed Other Studies: [] Route of nutrition/ use of supplements: [] Nutritional Intake: [] IV Site: [] Peck Catheter: [] - Physical Exam General: Alert, Oriented x3, Cooperative, No apparent distress HEENT: Atraumatic, PERRLA, EOMI Neck: Supple, No Nodes Lungs: Clear to auscultation, Normal air movement Cardiovascular: Regular rate, Regular Rhythm Abdomen: Soft, Non Tender, Non-Distended Extremities: No edema Skin: No rashes IV Site: Peripheral, without redness Musculoskeletal: No Tenderness to Palpation of Joints or Extremities Neurological: Cranial nerves II-XII grossly intact - Assessment/Plan Antibiotics: [] Assessment/Plan: [] Active and Suspected Problems COVID-19 (Acute) Suicidal ideation (Acute) Much improved. Fever curve had nearly resolved prior to starting levaquin, so no need for abx at this point. Ok for discharge Thank you, d/w Dr. Forrester, will sign off
--- NOTE | 2020-07-10 13:35 | CASEMGMT ---
[facility]ANO CM DC PHONE CALL DC DATE: 07/07/2020 DC DISPOSITION: Home DC DIAGNOSIS: SARS COVID 2 Attempted call to home phone. No answer and no messaging with name identifier. Josefa RIOS RN ACM
== END 2020-07-07 15:13 | disposition home or self-care (01) | DRG 177 ==
LOC: ED 23:46 → MS2 07-04 01:58
PROVIDERS: Admitting Provider Family Medicine; Emergency Provider Emergency Medicine; PCP Family Medicine; Referring Provider Family Medicine; Visit Provider Student in an Organized Health Care Education/Training Program
DX: U07.1 COVID-19 (principal); J12.89 Other viral pneumonia; R45.851 Suicidal ideations; E78.5 Hyperlipidemia, unspecified; N40.0 Benign prostatic hyperplasia without lower urinary tract symptoms; Z79.82 Long term (current) use of aspirin; F17.200 Nicotine dependence, unspecified, uncomplicated; Z88.0 Allergy status to penicillin; Z60.2 Problems related to living alone
CPT/HCPCS: 36415; 71045; 71260; 80048; 80053; 80307; 80320; 81001; 84484; 85025; 87635; 93005; 99284; 99406; J7030; Q9967; A4216; G0480; U0003

== ENCOUNTER → 2020-08-16 15:40 | Outpatient (CLI) | payer MEDICARE, OTHER, SELFPAY ==
[2020-08-16 17:43] LABS: ALB/GLOB Ratio 0.8 RATIO (0.9-2.4); AST(SGOT) 17 U/L (15-37); Alanine Aminotransfer ALT/SGPT 32 U/L (16-61); Albumin, Serum 3.5 g/dL (3.2-5.0); Alkaline Phosphatase 83 U/L (45-117); Anion Gap 5 (5-15); BUN 19 mg/dL (7-18); BUN/Creat Ratio 14.6 RATIO (10-20); Calcium,Total 9.2 mg/dL (8.5-10.1); Chloride 104 mmol/L (98-107); EST Glomerular Filtration Rate 56 mL/min (>60); Est Glom Filt Rate - Afr Amer 68 mL/min (>60); Globulin 4.2 g/dL (2.2-4.2); Glucose 111 mg/dL (74-106); Potassium 4.5 mmol/L (3.5-5.1); Protein, Total 7.7 g/dL (6.4-8.2); Sodium Level 138 mmol/L (136-145)
[2020-08-16 18:01] LABS: Absolute Lymphocyte Count 0.83 X10^3/uL (0.83-4.51); Absolute Neutrophil Count 4.2 X10^3/uL (2.0-7.7); Basophil# 0.06 X10^3/uL; Eosinophil# 0.18 X10^3/uL; Hematocrit 40.7 % (40-54); Hemoglobin 13.2 g/dL (13.0-16.5); Lymphocyte # 0.83 X10^3/ul (4.0); Lymphocyte % 13.8 % (19-41); Mean Corp Hgb Conc 32.4 g/dL (32-36); Mean Corpuscular Hgb 30.7 pg (27.0-32.0); Mean Corpuscular Volume 94.7 fL (80-94); Mean Platelet Vol. 9.8 fl (6.2-12.0); Monocyte# 0.69 X10^3/uL; Monocyte% 11.5 % (0-10); NRBC Flagged by Analyzer 0 % (0-5); Neutrophil # 4.22 X10^3/uL (2.7-7.7); Platelet Count 122 K/mm3 (150-450); RBC Distribution Width CV 13.7 % (11.6-14.6); RBC Distribution Width SD 47.4 fl (35.1-43.9)
== END ==
PROVIDERS: PCP Internal Medicine; Referring Provider Internal Medicine; Visit Provider Internal Medicine
DX: K40.90 Unilateral inguinal hernia, without obstruction or gangrene, not specified as recurrent (principal)
CPT/HCPCS: 36415; 80053; 85025

== ENCOUNTER 2020-08-19 10:09 | Inpatient (IN) | payer MEDICARE, OTHER, SELFPAY ==
[2020-08-17 07:34] VITALS: BMI 34.3
[2020-08-19] VITALS (8 sets, daily range): BP systolic 127–182; BP diastolic 70–93; PULSE 74–89; RESP 15–18; TEMP 36.2–37; O2SAT 87–98; BMI 34.2
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
[2020-08-19] MEDS: Ondansetron 4 MG/2 ML Vial IV (11:25)
[2020-08-19] MEDS: Morphine 4 MG/ML Syringe IV ×2 (11:25→14:45)
[2020-08-19] MEDS: 0.9% Normal Saline 1,000 ML 125 ML IV ×2 (11:25→22:00)
[2020-08-19 11:31] LABS: Absolute Lymphocyte Count 0.65 X10^3/uL (0.83-4.51); Absolute Neutrophil Count 3.4 X10^3/uL (2.0-7.7); Basophil# 0.04 X10^3/uL; Basophil% 0.8 % (0-1); Eosinophils% 2.1 % (0-5); Hematocrit 38.2 % (40-54); Hemoglobin 12.5 g/dL (13.0-16.5); Lymphocyte # 0.65 X10^3/ul (4.0); Lymphocyte % 13.6 % (19-41); Mean Corp Hgb Conc 32.7 g/dL (32-36); Mean Corpuscular Hgb 30.7 pg (27.0-32.0); Mean Corpuscular Volume 93.9 fL (80-94); Mean Platelet Vol. 9.6 fl (6.2-12.0); Monocyte# 0.53 X10^3/uL; Monocyte% 11.1 % (0-10); NRBC Flagged by Analyzer 0 % (0-5); Neutrophil # 3.44 X10^3/uL (2.7-7.7); Neutrophil % 71.8 % (47-70); POSITIVE COUNT YES; Platelet Count 95 K/mm3 (150-450); RBC Distribution Width CV 13.5 % (11.6-14.6); RBC Distribution Width SD 46.5 fl (35.1-43.9); Red Blood Count 4.07 M/mm3 (4.6-6.2); White Blood Count 4.8 K/mm3 (4.4-11.0)
[2020-08-19 11:40] LABS: Differential Indicated SCAN CRITERIA MET
[2020-08-19 11:45] LABS: ALB/GLOB Ratio 0.8 RATIO (0.9-2.4); AST(SGOT) 12 U/L (15-37); Alanine Aminotransfer ALT/SGPT 26 U/L (16-61); Albumin, Serum 3.2 g/dL (3.2-5.0); Alkaline Phosphatase 81 U/L (45-117); Anion Gap 5 (5-15); BUN 18 mg/dL (7-18); BUN/Creat Ratio 15.3 RATIO (10-20); Calcium,Total 8.7 mg/dL (8.5-10.1); Chloride 105 mmol/L (98-107); Creatinine, Serum 1.18 mg/dL (0.70-1.30); EST Glomerular Filtration Rate 63 mL/min (>60); Est Glom Filt Rate - Afr Amer 76 mL/min (>60); Globulin 3.9 g/dL (2.2-4.2); Glucose 129 mg/dL (74-106); Protein, Total 7.1 g/dL (6.4-8.2); Sodium Level 138 mmol/L (136-145)
[2020-08-19 11:58] LABS: Differential Comment SCANNED; Platelet Estimate SLT DEC (ADEQ)
[2020-08-19 13:25] LABS: Red Blood Cells-Urine 0 SEEN /hpf (0-5); Squamous Epithelial Cells - UA 0 SEEN /hpf (0-5); White Blood Cells 0 SEEN /hpf (0-5)
[2020-08-19 13:30] LABS: Color, Urine Yellow (Yellow); Glucose, Dipstick Normal (Normal); Ketone-Dipstick Negative (Negative); Leukocyte Esterase-Dipstick Negative /ul (Negative); Nitrite-Dipstick Negative (Negative); Occult Blood-Urine Negative /ul (Negative); Protein-Dipstick 15 mg/dl (Negative); Specific Gravity, Urine 1.025 (1.002-1.030); Urine Bilirubin Dipstick Negative (Negative); Urine Clarity Sl. Cloudy (Clear); Urine Urobilinogen Normal (Normal)
[2020-08-19 13:41] LABS: Bacteria 1+ /hpf (None Seen); Mucous, Urine RARE /hpf (<or=2+)
[2020-08-19] MEDS: Fleet Enema 1 ML RECTAL (14:13)
--- NOTE | 2020-08-19 16:47 | PCM.HP.STD ---
History of Present Illness Date of Admission: 08/19/20 The patient is a 79 year old M presented to the ER due to diffuse abdominal pain starting yesterday late afternoon. Patient describes it as spasms. Patient previously states he is having some left groin or left lower quadrant pain for the last 3 weeks or so. Patient does give a history of not eating as well for the last 2 to 3 weeks as well states that he went out to eat and would only eat about 1/4-1/3 of his meal. He did see Dr. Thomas in office a couple days ago did not think that there is any progressive hernia or incarcerated hernia, recommended a colonoscopy as he has not had one in greater than 10 years as well as a CT abdomen pelvis schedule as an outpatient. Patient CT abdomen pelvis IV contrast done as patient came to the ER did show large amount of air in the colon until it reaches the proximal sigmoid at this area appears to be thickened then there is less stool and air in the rectum, pt also has a subcutaneous seroma cavity due to previous trauma 10 years ago. Patient states he has had couple months of flatus and some small amount of stool in the past day. But has not been going his normal amount of stool. Patient previously did have Covid back in late June. He was scheduled for cardiac stress test due to an abnormal EKG on Friday. Patient denies any chest pain or shortness of breath currently. Patient white blood count is 4 with minimal shift at 71. About 10 years ago, pt did have 1800 lb fall on his lower abdomen & was pinned for 45 mins, but no internal injuries/no surgery needed at that time. due to this his lower abdomen as a somewhat abnormal shape. Past Medical History Past Medical History (Chronic Problems): Chronic Problems (Last Reviewed 08/17/20 @ 07:35 by Haylee Landon) Personal history of prostate cancer (Chronic) Medical History: Medical History (Last Reviewed 08/17/20 @ 07:35 by Haylee Landon) Left inguinal hernia (Acute) K40.90 Left inguinal pain (Acute) R10.32 COVID-19 (Resolved) U07.1 Suicidal ideation (Acute) R45.851 Nausea (Acute) R11.0 Abdominal pain (Acute) R10.9 Fever (Acute) R50.9 Prostate cancer C61 Allergies Penicillins Allergy (Verified 08/19/20 10:09) Rash promethazine HCl [From Phenergan] Adverse Reaction (Verified 08/19/20 10:09) Unknown SEVERE CONFUSION, STROKE LIKE SYMPTOMS Home Medications: Ambulatory Orders Medication Instructions Recorded RX: Finasteride [Proscar] 5 mg PO QHS 02/26/15 RX: Tamsulosin HCl [Flomax] 0.4 mg PO BID 02/26/15 RX: Aspirin E.C. [Ecotrin] 81 mg PO DAILY@0800 07/09/17 Surgical History: Surgical History (Last Reviewed 08/17/20 @ 07:35 by Haylee Landon) Hx of tonsillectomy (Acute) Z90.89 radiation Surgical History: - - vasectemy, trauma injury to lower abd via a tailgate of a truck 5 years ao Smoking Status: Never smoker Tobacco Use: Chew - *Family History Maternal Family History: Family History (Last Reviewed 08/17/20 @ 07:35 by Haylee Landon) Father Heart disease Brother Prostate cancer Son Diabetes History Items: - - arthritis Paternal Family History: Family History (Last Reviewed 08/17/20 @ 07:35 by Haylee Landon) Father Heart disease Brother Prostate cancer Son Diabetes History Items: - - father young of mi Review of Systems Constitutional: Reports: Anorexia. Denies: Fever HEENT: Reports: Difficulty Swallowing Cardiovascular: Reports: Chest Pain Respiratory: Denies: Cough Gastrointestinal: Reports: Abdominal Pain. Denies: Hematemesis, Hematochezia, Nausea, Vomiting VTE Information - Inpt Only VTE Present on Admission: Yes VTE Mechan Device Prophylaxis: SCD's Patient Problems: Active and Suspected Problems (Last Reviewed 08/17/20 @ 07:35 by Haylee Landon) Intractable generalized abdominal pain (Acute) - Physical Exam Vitals/I&O's: Vital Signs Temp Pulse Resp BP Pulse Ox 98.3 F 87 18 182/93 H 87 08/19/20 16:27 08/19/20 16:27 08/19/20 16:27 08/19/20 16:27 08/19/20 16:27 Oxygen Delivery Method Room Air Weight: 225 lb Body Mass Index (BMI) 34.2 General: Alert, Oriented x3, Cooperative HEENT: Atraumatic Lungs: Normal air movement Cardiovascular: Regular rate Abdomen: Soft, Distended, Tender - Diffuse, equivocal rebound, no guarding, - - somewhat abnormal contour to lower abd due to previous trauma Extremities: No clubbing, No cyanosis Neurological: Cranial nerves II-XII grossly intact Psych/Mental Status: Normal Affect Laboratory Results 08/19/20 11:20: WBC 4.8, RBC 4.07 L, Hgb 12.5 L, Hct 38.2 L, MCV 93.9, MCH 30.7, MCHC 32.7, RDW Std Deviation 46.5 H, RDW Coeff of José Miguel 13.5, Plt Count 95 L, MPV 9.6, Immature Gran % (Auto) 0.600, Neut % (Auto) 71.8 H, Lymph % (Auto) 13.6 L, [place] % (Auto) 11.1 H, Eos % (Auto) 2.1, Baso % (Auto) 0.8, Absolute Neuts (auto) 3.4, Absolute Lymphs (auto) 0.65 L, Nucleated RBC % 0, Differential Comment SCANNED, Platelet Estimate SLT 08/19/20 11:20: Sodium 138, Potassium 4.0, Chloride 105, Carbon Dioxide 28.0, Anion Gap 5, BUN 18, Creatinine 1.18, Estim Creat Clear Calc 47.50, Est GFR (MDRD) Af Amer 76, Est GFR (MDRD) Non-Af 63, BUN/Creatinine Ratio 15.3, Glucose 129 H, Calcium 8.7, Total Bilirubin 0.70, AST 12 L, ALT 26, Alkaline Phosphatase 81, Total Protein 7.1, Albumin 3.2, Globulin 3.9, Albumin/Globulin Ratio 0.8 L 08/19/20 13:10: Urine Color Yellow, Urine Clarity Sl. Cloudy, Urine pH 5.0, Ur Specific [place] 1.025, Urine Protein 15 H, Urine Glucose (UA) Normal, Urine Ketones Negative, Urine Occult Blood Negative, Urine Nitrite Negative, Urine Bilirubin Negative, Urine Urobilinogen Normal, Ur Leukocyte Esterase Negative, Urine RBC 0 SEEN, Urine WBC 0 SEEN, Ur Squamous Epith Cells 0 SEEN, Urine Bacteria 1+, Urine Mucus RARE Current Medications Finasteride (Finasteride 5 Mg Tablet) 5 mg PO QHS BHAVESH Sodium Chloride () 1,000 mls @ 125 mls/hr IV .Q8H BHAVESH Last Admin: 08/19/20 11:25 Dose: 125 mls/hr Documented by: Morphine Sulfate (Morphine 2 Mg/Ml Syringe) 2 - 4 mg IV Q2H PRN PRN PRN Reason: Pain Score 1-10 Ondansetron HCl (Ondansetron 4 Mg/2 Ml Vial) 4 mg IV Q8H PRN PRN PRN Reason: NAUSEA Sodium Chloride (0.9% Saline Lock 10 Ml Syringe) 10 - 40 ml IV UD PRN PRN Reason: SALINE FLUSH Tamsulosin HCl (Tamsulosin Hcl 0.4 Mg Capsule) 0.4 mg PO BID@0830,1730 [facility] Assessment/Plan All Active Problems (Last Reviewed 08/17/20 @ 07:35 by Haylee Landon) Intractable generalized abdominal pain (Acute) Hx of tonsillectomy (Acute) Left inguinal hernia (Acute) Left inguinal pain (Acute) COVID-19 (Resolved) Suicidal ideation (Acute) Nausea (Acute) Abdominal pain (Acute) Fever (Acute) 79-year-old male with diffuse abdominal pain, partial obstructing lesion at sigmoid colon causing a large bowel obstruction, history of Covid in late June, history of pancreatic cancer 1. Did review the CT abdomen pelvis with the patient and also discussed with his son per patient's request. Patient admits to a couple episodes of flatus and a small amount of stool today. Patient denies any previous attacks of diverticulitis, last colonoscopy was about 15 years ago. Did discuss with the patient's son I would not recommend a colonoscopy as it appears he has a competent ileocecal valve and putting more area and may just cause the cecum and the rest of the proximal colon to become more distended. Discussed the procedure of a laparoscopic sigmoidectomy, possible colostomy, possible open with the patient and his son. Including risk but not limited to bleeding, infection, injury to another organ (small bowel/colon, ureter, etc.), and anesthesia. Patient has not had no further questions at this time. Discussed patient we would be testing for Covid he did recently have Covid in late June. Rita Hughes M.D. Pager: [phone] [facility] [address] [place] [address], [facility], [address] [place] [address] Office: [phone]
[2020-08-19] MEDS: Morphine 2 MG/ML Syringe IV ×2 (17:15→22:10)
[2020-08-19] MEDS: 0.9% Saline Lock 10 ML Syringe IV ×2 (17:16→22:10)
--- NOTE | 2020-08-19 17:51 | EKG12_ITS ---
Test Reason : PRE-OP Blood Pressure : / mmHG Vent. Rate : 085 BPM Atrial Rate : 085 BPM P-R Int : 158 ms QRS Dur : 086 ms QT Int : 378 ms P-R-T Axes : 023 015 042 degrees QTc Int : 449 ms Sinus rhythm with Premature atrial complexes Otherwise normal ECG Confirmed by FRANCO TITUS, LIGIA ([id number]), medical transcription editor CHASITY REESE ([id number]) on 08/23/2020 1:29:37 PM Referred By: AMBERLY Confirmed By:LIGIA GAMEZ MD
--- NOTE | 2020-08-19 17:51 | NURSING ---
This nurse spoke with Dr. Hughes regarding if she wanted pt to have a COVID test prior to surgery since pt was COVID positive in June and results would most likely be positive again. Dr. Hughes said yes, she wants him to have another COVID test.
--- NOTE | 2020-08-19 18:06 | RAD_ITS ---
STUDY: X-RAY CHEST REASON FOR EXAM: Male, 79 years old. PRE-OP CHEST XRAY; 2 ATTEMPTS MADE FOR BEST INSPIRATION TECHNIQUE: Single frontal view of the chest. COMPARISON: CT chest 07/06/2020 and chest x-ray same day FINDINGS: Lungs are under aerated. The lungs are clear and expanded. There is no demonstrated pleural abnormality. Normal size heart. Normal mediastinum and gurpreet. Normal visualized pulmonary arteries. Normal visualized aortic arch and descending thoracic aorta. Normal visualized thoracic spine. Normal visualized ribs, clavicles, and shoulders. There is no demonstrated abnormality of the visualized soft tissue structures of the upper abdomen. RAD/Chest 1 View (Portable) IMPRESSION: Poor inspiratory effort. No acute disease. Electronically Signed: Jose Barnard MD at 20:52 EST , Service support ,
[2020-08-19] MEDS: Finasteride 5 MG Tablet PO (22:00)
[2020-08-20] VITALS (17 sets, daily range): BP systolic 90–153; BP diastolic 52–111; PULSE 73–117; RESP 16–22; TEMP 36.4–37.3; O2SAT 81–98; BMI 34.2
[2020-08-20] MEDS: 0.9% Normal Saline 1,000 ML 125 ML IV (05:15)
[2020-08-20] MEDS: Morphine 2 MG/ML Syringe IV (05:15)
[2020-08-20] MEDS: 0.9% Saline Lock 10 ML Syringe IV (05:15)
[2020-08-20 06:12] LABS: Absolute Lymphocyte Count 0.76 X10^3/uL (0.83-4.51); Absolute Neutrophil Count 4.8 X10^3/uL (2.0-7.7); Basophil# 0.05 X10^3/uL; Basophil% 0.8 % (0-1); Eosinophil# 0.13 X10^3/uL; Hematocrit 39.1 % (40-54); Hemoglobin 12.3 g/dL (13.0-16.5); Lymphocyte # 0.76 X10^3/ul (4.0); Lymphocyte % 11.5 % (19-41); Mean Corp Hgb Conc 31.5 g/dL (32-36); Mean Corpuscular Hgb 30.3 pg (27.0-32.0); Mean Corpuscular Volume 96.3 fL (80-94); Mean Platelet Vol. 9.7 fl (6.2-12.0); Monocyte# 0.81 X10^3/uL; Monocyte% 12.3 % (0-10); NRBC Flagged by Analyzer 0 % (0-5); Neutrophil # 4.84 X10^3/uL (2.7-7.7); Neutrophil % 73.1 % (47-70); POSITIVE COUNT YES; Platelet Count 97 K/mm3 (150-450); RBC Distribution Width CV 13.6 % (11.6-14.6); RBC Distribution Width SD 48.7 fl (35.1-43.9); Red Blood Count 4.06 M/mm3 (4.6-6.2); White Blood Count 6.6 K/mm3 (4.4-11.0)
[2020-08-20 06:39] LABS: Anion Gap 6 (5-15); BUN 15 mg/dL (7-18); BUN/Creat Ratio 14.3 RATIO (10-20); Calcium,Total 8.3 mg/dL (8.5-10.1); Chloride 106 mmol/L (98-107); Creatinine, Serum 1.05 mg/dL (0.70-1.30); EST Glomerular Filtration Rate 72 mL/min (>60); Est Glom Filt Rate - Afr Amer 87 mL/min (>60); Estimated Creatinine Clearance 53.38 ml/min; Glucose 129 mg/dL (74-106); Potassium 3.9 mmol/L (3.5-5.1); Sodium Level 137 mmol/L (136-145)
[2020-08-20] MEDS: Tamsulosin HCl 0.4 MG Capsule PO (07:53)
--- NOTE | 2020-08-20 10:00 | COL_PTH ---
PATIENT: GARRETT MONTAGUE LOC: ICU U#:[id number] AGE/SX: 79/M ROOM: ICU06 RE08/20/[address]: Dr. Kam Glass MD : [id number] BED: 1 DIS: 08/26/2020 SPEC #: [id number] RECD: 08/21/20 08:12 STATUS: LACHO POWER #: [id number] VINAYAK: 08/20/20 10:[address]: Rita Hughes DEPT: SURGICAL PATHOLOGY RECD BY: Danyelle Mayers ENTERED: 08/21/20 10:05 SP TYPE: COLON OTHR DR: Dr. Sharlene Leslie MD Tissues: A - Colon, NOS B - Rectum, NOS C - Descending colon D - Descending colon E - Rectum, NOS F - Soft tissues, NOS Procedures: Surgery Specimen Level IV Surgery Specimen Level V HEADER OPERATION: Diagnostic laparoscopy, open sigmoid colectomy PRE-OP DIAGNOSIS: Intractable generalized abdominal pain; sigmoid mass, subcutaneous seroma cavity, bowel obstruction TISSUE SUBMITTED: A - Sigmoid colon, suture at distal end, B - Rectal tissue, proximal to distal sigmoid anastomosis specimen, C - Descending colon tissue, distal to proximal sigmoid anastomosis, D - Proximal descending anastomosis, E - Distal rectal anastomosis, F - Subcutaneous seroma cavity MICROSCOPIC DIAGNOSIS A. Sigmoid colon, segmental resection: Diverticular disease of colon. Focal microabscesses suggestive of rupture of diverticulum. Margins of excision with no significant pathologic change. Focal cystic fat necrosis. 17 out of 17 lymph nodes with no pathologic change. B. Rectal tissue, biopsy: Vascular congestion. No evidence of malignancy. C. Descending colon distal to proximal sigmoid anastomosis, excision: Focal mucosal and submucosal vascular ectasia. No evidence of malignancy. D. Proximal descending anastomosis, excision: Submucosal vascular ectasia and hemorrhage. No evidence of malignancy. E. Distal rectal anastomosis, excision: Focal mucosal hemorrhage. No evidence of malignancy. F. Subcutaneous seroma cavity, excision: Densely collagenized tissue. No evidence of malignancy. AM:argelia 08/23/20 MICROSCOPIC DESCRIPTION Slides are reviewed. GROSS DESCRIPTION A - Received in fixative is one container labeled with the patient's name and designated sigmoid colon. The specimen consists of a 23 cm segment of bowel with attached fibrofatty tissue. No gross perforations are identified. The distal stapled margin is identified by a suture. Significant fat wrapping is present. The serosal surface is inked in black ink. An area of increased mucosal folds are noted approximately 6 cm from the proximal margin of resection. This area measures 4.8 x 4 x 1 cm. Serial sections of this area of increased mucosal folds reveal multiple diverticula, none of which appear to have grossly perforation through the bowel wall. The uninvolved areas of bowel on serial sectioning also reveal multiple diverticula, none of which appear to have perforated. Serial sections of the fibrofatty tissue reveal a single cystic structure measuring 3 cm in greatest dimension and containing yellow and yolk-like material. Multiple grossly unremarkable lymph nodes are also encountered in the adherent fibrofatty tissue. Account Executive Sales Representative sections are submitted in 12 cassettes as follows: 1 - mucosal margin (proximal inked in blue), 2-7 - area of mucosal irregularity with diverticula, 8-11 - multiple lymph nodes in each cassette, 12 - cystic structure in pericolic fatty tissue. / AM: 08/22/20 B - Received in fixative is one container labeled with the patient's name and designated rectal tissue, proximal to distal sigmoid anastomosis. The specimen consists of an irregular mucosal fragment measuring 5 x 2.5 x 1 cm. Multiple metallic cece are present in the tissue. No mass lesions are identified. Account Executive Sales Representative sections are submitted in one cassette. / AM: 08/21/20 C - Received in fixative is one container labeled with the patient's name and designated descending colon tissue. The specimen consists of two glistening fragments of collins mucosa with attached submucosal tissue measuring in aggregate 7 x 6 x 3.5 cm. No mucosal mass lesions are identified. Account Executive Sales Representative sections are submitted in one cassette. / AM: 08/21/20 D - Received in fixative is one container labeled with the patient's name and designated proximal descending anastomosis. The specimen consists of a mucosal donut measuring 2 cm in length and 1.5 cm in average thickness and containing blue Prolene type sutures. No mass lesions are identified. Account Executive Sales Representative sections are submitted in one cassette. / AM: 08/21/20 E - Received in fixative is one container labeled with the patient's name and designated distal rectal anastomosis. The specimen consists of a mucosal donut measuring 2 cm in length and 1 cm in average thickness. No mass lesions are identified. Account Executive Sales Representative sections are submitted in one cassette. / AM: 08/21/20 F - Received in fixative is one container labeled with the patient's name and designated subcutaneous seroma cavity. The specimen consists of a collins, saccular structure measuring 10 x 7 cm. The inner lining is smooth and glistening. The external surface is yellow-collins in color. Serial sections do not reveal mass lesions. Account Executive Sales Representative sections are submitted in three cassettes. / AM:argelia 08/21/20 TC:2 CPT: 62107, 24278 x5
[2020-08-20] MEDS: metroNIDAZOLE 500 MG/100 ML BAG 100 MG IV ×2 (10:55→22:37)
[2020-08-20] MEDS: Lactated Ringers 1,000 ML 100 ML IV ×3 (11:45→17:22)
--- NOTE | 2020-08-20 16:36 | OP.PCM_ITS ---
Report of Operation Date of Procedure: 08/20/20 Pre-Operative Diagnosis: Large bowel obstruction, sigmoid mass, subcutaneous seroma cavity Post-Operative Diagnosis: Same Surgery/Procedure Performed:: Laparoscopic converted to laparotomy sigmoidectomy with primary anastomosis, mobilization of splenic flexure, excision of subcutaneous seroma cavity foreign legal consultant: Carlin Thomas foreign legal consultant: [place] Type of Anesthesia:: General/Supplemental Anesthesiologist: Fanny Barrera Special Medications: Cefotan 2 g IV x1 Specimen's removed: 1. Sigmoid colon. 2. Distal rectal anastomosis. 3. Proximal descending colon anastomosis. 4. Proximal to the distal rectal anastomosis. 5. Distal to the proximal descending colon anastomosis. 6. Subcutaneous seroma cavity Drains: chavarria- 250 cc Estimated Blood Loss (mL): 200 cc Fluids Replaced: 3.5 L Description of Procedure: Indication: 79-year-old male presented to the ER due to abdominal pain CT abdomen pelvis was consistent with near complete large bowel obstruction due to a likely mass in the sigmoid colon. Discussed risk benefits the patient and his son agreed to proceed with sigmoidectomy. Description: Patient was bought in to the operating room and general anesthesia was induced. Patient was placed in low lithotomy position with appropriate padding. OG and chavarria were placed. Rectum was irrigated with a Betadine solution. A timeout was completed verifying correct patient, procedure, site, position and special equipment prior to beginning procedure. The abdomen was prepped and draped in usual sterile fashion. An incision was made in the natural skin line above the umbilicus. The fascia was elevated and incised. The peritoneum was elevated and incised. Entry into the peritoneum was confirmed visually and no bowel was noted in the vicinity of the incision. Shelton trocar was placed. The abdomen was insufflated with carbon dioxide to a pressure of 12-15 mmHg. Due to the dilated colon and the previous trauma to the lower abdomen and the very thick omentum visualization was very difficult/limited. Converted to laparotomy, incision was made in midline with 10 blade scalpel, deepened to fascia with electrocautery. There was noted to be a large subcutaneous seroma cavity with thick/dense wall in lower abdomen, which was entered in order to access the lower fascia. The cavity did contain collins fluid that was sent for culture. Abdomen was entered with direct visualization. No injuries were noted upon entry. The colon was distended with air and small bowel decompressed. A mass in the sigmoid colon was palpated, this was freed from the surrounding tissue using gentle traction/pressure. It did no apparent to have grown into surrounding structures/organs. A purse string suture of 3-0 silk was placed just proximal to the mass and the air from the colon was released for better visualization. The rectosigmoid junction was identified as well as the descending colon. The left ureter was identified and protected. The white line of toldt was divided along the sigmoid/descending colon. A blue load contour stapler was used to divide the proximal rectum. The ligasure impact was used to divide the mesentery of the sigmoid colon proximally from the rectum and the sigmoid artery was divided with the ligasure impact as well. The distal sigmoid specimen was marked with suture and sent to pathology after linear ROSSANA 100 cm stapler was used to divided the distal descending colon. For adequate length of colon to reach the pelvis, the splenic flexure was mobilized, the omentum to transvers e/splenic flexure colon was noted to be very thick. After adequate mobilization, the staple line of the descending colon was excised and there was adequate blood flow to this area. The EEA 29 stapler was used and a pursestring suture of 1-0 Prolene was used to secure the anvil in descending colon. After the sizers were placed in the rectum, the EEA stapler was advanced and The spike was deployed at the staple line. Anvil was attached and stapler closed careful to not catch any of the surround tissue. Stapler was fired; however, as it was being pulled back out there was a hole at the anastomosis. Stapler was removed and the partial anastomosis was divided with Metzenbaum scissors. Babcocks were placed on rectum and bowel clamp on descending colon. Small amount was stool was present in the pelvis this was irrigated. The rectum was freed up more distally and another contour stapler was used to close the rectum. There was still adequate mobilization of the descending colon to excise the distal aspect and have it still reach the pelvis without tension. There was a small serosal tear to the descending colon- 3-0 silk figure of 8 suture was placed. There was good blood flow at new distal aspect of descending colon. 1-0 Prolene was used to secure anvil, EEA 29 stapler was advanced to the distal rectum and opened. Anvil was attached and stapler closed and fired. The stapler was removed from rectum, proximal and distal donuts were intact. Air leak test was performed with rigid sigmoidoscope and no leak was appreciated after saline was placed in pelvis. The abdomen was irrigated with 5 liters of fluid throughout the case. Hemostasis was assured. The lower subcutaneous seroma cavity was excised with electrocautery and sent to pathology. The fascia was closed with 1-0 PDS suture. Wound was irrigated. Betadine soaked Kerlix was placed on fascia and in subcutaneous pocket due to seroma cavity excision. Skin was left open- plan for wound vac placement tomorr ow. Patient tolerated surgery well and was taken to the PACU in stable condition. - Complications none - Admit VTE Documentation VTE Present on Admission: Yes VTE Mechan Device Prophylaxis: SCD's
[2020-08-20] MEDS: Bacitracin 500 UNITS/GM PACKET (16:47)
[2020-08-20 18:38] LABS: Absolute Lymphocyte Count 0.42 X10^3/uL (0.83-4.51); Absolute Neutrophil Count 5.9 X10^3/uL (2.0-7.7); Basophil# 0.03 X10^3/uL; Basophil% 0.4 % (0-1); Eosinophil# 0.01 X10^3/uL; Eosinophils% 0.1 % (0-5); Hematocrit 37.5 % (40-54); Hemoglobin 11.8 g/dL (13.0-16.5); Lymphocyte # 0.42 X10^3/ul (4.0); Lymphocyte % 5.9 % (19-41); Mean Corp Hgb Conc 31.5 g/dL (32-36); Mean Corpuscular Hgb 30.5 pg (27.0-32.0); Mean Corpuscular Volume 96.9 fL (80-94); Mean Platelet Vol. 9.9 fl (6.2-12.0); Monocyte# 0.72 X10^3/uL; Monocyte% 10.1 % (0-10); NRBC Flagged by Analyzer 0 % (0-5); Neutrophil # 5.93 X10^3/uL (2.7-7.7); Neutrophil % 82.9 % (47-70); POSITIVE DIFFERENTIAL YES; Platelet Count 109 K/mm3 (150-450); RBC Distribution Width CV 13.8 % (11.6-14.6); RBC Distribution Width SD 48.8 fl (35.1-43.9); Red Blood Count 3.87 M/mm3 (4.6-6.2); White Blood Count 7.2 K/mm3 (4.4-11.0)
[2020-08-20 18:49] LABS: Differential Indicated SCAN CRITERIA MET
--- NOTE | 2020-08-20 19:04 | NURSING ---
Pt arrived back to room from PACU. BP 90/52. MAP 59. MD notified. 500 CC NS bolus ordered x2. Pt arousable to name but quickly falls back asleep. Wound dressing intact on abd.
[2020-08-20 19:29] LABS: Differential Comment SCANNED
[2020-08-20] MEDS: Lactated Ringers 1,000 ML 150 ML IV (19:41)
[2020-08-20] MEDS: Ciprofloxacin 400 MG/200 ML BAG 200 MG IV (21:22)
[2020-08-21] VITALS (17 sets, daily range): BP systolic 98–126; BP diastolic 46–71; PULSE 93–117; RESP 16–20; TEMP 36.5–37.7; O2SAT 92–97; BMI 34.2
[2020-08-21] MEDS: Lactated Ringers 1,000 ML 150 ML IV ×2 (02:02→09:18)
[2020-08-21] MEDS: Morphine 2 MG/ML Syringe IV ×6 (02:16→20:19)
[2020-08-21] MEDS: metroNIDAZOLE 500 MG/100 ML BAG 100 MG IV ×3 (05:14→22:04)
[2020-08-21 06:23] LABS: Absolute Lymphocyte Count 0.68 X10^3/uL (0.83-4.51); Basophil# 0.02 X10^3/uL; Basophil% 0.2 % (0-1); Hematocrit 31.8 % (40-54); Hemoglobin 9.9 g/dL (13.0-16.5); Lymphocyte # 0.68 X10^3/ul (4.0); Lymphocyte % 6.3 % (19-41); Mean Corp Hgb Conc 31.1 g/dL (32-36); Mean Corpuscular Hgb 30.3 pg (27.0-32.0); Mean Corpuscular Volume 97.2 fL (80-94); Mean Platelet Vol. 10.2 fl (6.2-12.0); Monocyte# 1.11 X10^3/uL; Monocyte% 10.3 % (0-10); NRBC Flagged by Analyzer 0 % (0-5); Neutrophil # 8.96 X10^3/uL (2.7-7.7); Neutrophil % 82.8 % (47-70); POSITIVE MORPHOLOGY YES; Platelet Count 104 K/mm3 (150-450); RBC Distribution Width CV 13.9 % (11.6-14.6); Red Blood Count 3.27 M/mm3 (4.6-6.2); White Blood Count 10.8 K/mm3 (4.4-11.0)
[2020-08-21 06:53] LABS: Differential Indicated SCAN CRITERIA MET
[2020-08-21 06:55] LABS: Anion Gap 8 (5-15); BUN 26 mg/dL (7-18); BUN/Creat Ratio 9.4 RATIO (10-20); Calcium,Total 7.3 mg/dL (8.5-10.1); Chloride 111 mmol/L (98-107); Creatinine, Serum 2.76 mg/dL (0.70-1.30); EST Glomerular Filtration Rate 24 mL/min (>60); Est Glom Filt Rate - Afr Amer 29 mL/min (>60); Estimated Creatinine Clearance 20.31 ml/min; Glucose 145 mg/dL (74-106); Magnesium 1.7 mg/dL (1.6-2.6); Phosphorus 3.8 mg/dL (2.5-4.9); Potassium 5.5 mmol/L (3.5-5.1); Sodium Level 142 mmol/L (136-145)
[2020-08-21] MEDS: Tamsulosin HCl 0.4 MG Capsule PO ×2 (07:42→18:13)
--- NOTE | 2020-08-21 08:40 | PCM.PN.SRG ---
Patient Problems: Active and Suspected Problems (Last Reviewed 08/17/20 @ 07:35 by Haylee Landon) Intractable generalized abdominal pain (Acute) Subjective: Patient has had low urine output and received boluses overnight which has improved the urine output some still on the low side, patient's blood pressure has been low 100s systolically occasionally less which the boluses did improve. Patient denies any flatus currently getting wound VAC placed. - Physical Exam Vitals/I&O's: Vital Signs Temp Pulse Resp BP Pulse Ox 98.2 F 95 20 H 103/58 L 92 08/21/20 07:36 08/21/20 07:36 08/21/20 07:36 08/21/20 07:36 08/21/20 07:36 Oxygen Flow Rate (L/min) 2 Oxygen Delivery Method Nasal Cannula Weight: 225 lb Body Mass Index (BMI) 34.2 Intake and Output for Last 24 Hours 08/19/20 08/20/20 08/21/20 23:59 23:59 23:59 Intake Total 1100 / 1100 5537.92 / 5537.92 1582.5 / 1582.5 Output Total 635 / 635 80 / 80 Balance 1100 / 1100 4902.92 / 4902.92 1502.5 / 1502.5 General: Alert, Oriented x3, Cooperative, No apparent distress HEENT: Atraumatic Lungs: Normal air movement Cardiovascular: Regular rate Abdomen: Soft, Tender - Near incision, wound VAC currently being placed, no peritoneal signs Extremities: No clubbing, No cyanosis Microbiology Past 72 Hours 08/19/20 18:40 Mucosa - Nasopharyngeal SARS-CoV-2 Antigen (Rapid) - Final Laboratory Results 08/20/20 18:25: WBC 7.2, RBC 3.87 L, Hgb 11.8 L, Hct 37.5 L, MCV 96.9 H, MCH 30.5, MCHC 31.5 L, RDW Std Deviation 48.8 H, RDW Coeff of José Miguel 13.8, Plt Count 109 L, MPV 9.9, Immature Gran % (Auto) 0.600, Neut % (Auto) 82.9 H, Lymph % (Auto) 5.9 L, [place] % (Auto) 10.1 H, Eos % (Auto) 0.1, Baso % (Auto) 0.4, Absolute Neuts (auto) 5.9, Absolute Lymphs (auto) 0.42 L, Nucleated RBC % 0, Differential Comment SCANNED 08/21/20 05:12: WBC 10.8, RBC 3.27 L, Hgb 9.9 L, Hct 31.8 L, MCV 97.2 H, MCH 30.3, MCHC 31.1 L, RDW Std Deviation 50.0 H, RDW Coeff of José Miguel 13.9, Plt Count 104 L, MPV 10.2, Immature Gran % (Auto) 0.400, Neut % (Auto) 82.8 H, Lymph % (Auto) 6.3 L, [place] % (Auto) 10.3 H, Eos % (Auto) 0.0, Baso % (Auto) 0.2, Absolute Neuts (auto) 9.0 H, Absolute Lymphs (auto) 0.68 L, Nucleated RBC % 0 08/21/20 05:12: Sodium 142, Potassium 5.5 H, Chloride 111 H, Carbon Dioxide 23.0, Anion Gap 8, BUN 26 H, Creatinine 2.76 H, Estim Creat Clear Calc 20.31, Est GFR (MDRD) Af Amer 29 L, Est GFR (MDRD) Non-Af 24 L, BUN/Creatinine Ratio 9.4 L, Glucose 145 H, Calcium 7.3 L, Phosphorus 3.8, Magnesium 1.7 Current Medications Finasteride (Finasteride 5 Mg Tablet) 5 mg PO QHS [facility] Last Admin: 08/20/20 22:38 Dose: Not Given Documented by: Lactated Ringer's () 1,000 mls @ 150 mls/hr IV .Q6H40M [facility] Last Admin: 08/21/20 02:02 Dose: 150 mls/hr Documented by: Ciprofloxacin (Cipro) 400 mg in 200 mls @ 200 mls/hr IV Q12 [facility] Stop: 08/21/20 22:00 Last Infusion: 08/20/20 22:22 Dose: Infused Documented by: Metronidazole (Flagyl) 500 mg in 100 mls @ 100 mls/hr IV Q8 [facility] Stop: 08/21/20 22:00 Last Infusion: 08/21/20 06:14 Dose: Infused Documented by: Morphine Sulfate (Morphine 2 Mg/Ml Syringe) 2 - 4 mg IV Q2H PRN PRN PRN Reason: Pain Score 1-10 Last Admin: 08/21/20 08:12 Dose: 4 mg Documented by: Nutritional Formula (Lactose Free) (Ensure Enlive 120 Ml Liquid) 120 ml PO 4X/DAY [facility] Last Admin: 08/21/20 07:31 Dose: Not Given Documented by: Ondansetron HCl (Ondansetron 4 Mg/2 Ml Vial) 4 mg IV Q8H PRN PRN PRN Reason: NAUSEA Sodium Chloride (0.9% Saline Lock 10 Ml Syringe) 10 - 40 ml IV UD PRN PRN Reason: SALINE FLUSH Last Admin: 08/20/20 05:15 Dose: 10 ml Documented by: Tamsulosin HCl (Tamsulosin Hcl 0.4 Mg Capsule) 0.4 mg PO BID@0830,1730 [facility] Last Admin: 08/21/20 07:42 Dose: 0.4 mg Documented by: Medical Necessity - Tobacco Use Smoking Status: Never smoker Tobacco Use: Chew Assessment/Plan All Active Problems (Last Reviewed 08/17/20 @ 07:35 by Haylee Landon) Intractable generalized abdominal pain (Acute) Hx of tonsillectomy (Acute) Left inguinal hernia (Acute) Left inguinal pain (Acute) COVID-19 (Resolved) Suicidal ideation (Acute) Nausea (Acute) Abdominal pain (Acute) Fever (Acute) 79 y/o M s/p sigmoidectomy, excision of subcut. seroma cavity for sigmoid mass POD 1 -continue NPO, IVF until +BF -continue abx thru today -encourage OOB to chair/amb -wound vac being placed today -Potassium elevated at 5.5, and creatinine also elevated we will switch the LR to normal saline chavarria for I/os -lovenox Rita Hughes M.D. Pager: [phone] [facility] [address] [place] [address], [facility], [address] [place] [id number] Office: [phone]
[2020-08-21] MEDS: Ciprofloxacin 400 MG/200 ML BAG 200 MG IV ×2 (09:20→21:00)
--- NOTE | 2020-08-21 09:55 | CASEMGMT ---
DANO DAVENPORT Face to Face with patient for initial transition planning/care coordination assessment. RN CM introduced self and role at [facility]. Patient lying in bed, alert and oriented. Patient willing to participate in assessment and is able to answer all questions appropriately. Care providers, pharmacy, and demographics verified. Patient wishes to discharge home and will need HHC for wound vac assistance. RN ETHEL provided list of HHC agencies to patient to review. Patient states he has no further needs or concerns at this time. CM to follow for discharge planning needs that may arise. PCP: Anuj Specialists: none Preferred Pharmacy: [facility] Insurance: [facility], physician mutual Prescription Benefit: none Living Will/HPOA: yes, son [place] HPOA LNOK: son Living Arrangements: patient lives alone in single story home with no steps to enter. Patient states he is independent at home. Transportation: self/son DME/HHC: Patient to states he has a cane and grab bars. Patient to review HHC agency list provided. CM will assist in HHC setup for wound vac. Disposition Plan: Patient to discharge home with family support and follow-up plans in place. Grace RIOS, RN, CM
--- NOTE | 2020-08-21 11:16 | NURSING ---
wound photo: abdomen
[2020-08-21] MEDS: 0.9% Normal Saline 1,000 ML 150 ML IV ×2 (13:00→21:02)
--- NOTE | 2020-08-21 13:06 | CHAPLAIN ---
Type of Pastoral Visit _x__ Initial Visit ___ Follow-up Visit ___ On-call Visit ___ General Patient Visit ___ Spiritual Assessment ___ Family Conference ___ Bereavement ___ Rapid Response ___ Code Blue ___ Other (describe below) Pastoral Care Referral From _x__ Patient ___ Family ___ Nurse ___ Physician ___ Clinical Quality Analyst ___ Fingerprint Classifier ___ Other (describe below) Sacrament/Intervention _x__ Active listening ___ Anointing ___ Evangelical ___ Bereavement ___ Communion _x__ Madyson exploration ___ _x__ Life review _x__ Prayer ___ Reconciliation ___ Sacrament of Sick _x__ Supportive presence ___ Wedding ___ Other (describe below) Pastoral Comments
[2020-08-21] MEDS: Enoxaparin 40 MG/0.4 ML Syringe SC (13:51)
[2020-08-21 17:05] LABS: Anion Gap 6 (5-15); BUN 37 mg/dL (7-18); BUN/Creat Ratio 12.2 RATIO (10-20); Calcium,Total 7.2 mg/dL (8.5-10.1); Chloride 113 mmol/L (98-107); Creatinine, Serum 3.03 mg/dL (0.70-1.30); EST Glomerular Filtration Rate 21 mL/min (>60); Est Glom Filt Rate - Afr Amer 26 mL/min (>60); Glucose 133 mg/dL (74-106); Potassium 5.2 mmol/L (3.5-5.1); Sodium Level 143 mmol/L (136-145)
[2020-08-21] MEDS: 0.9% Normal Saline 1,000 ML 999 ML IV (18:12)
[2020-08-21 18:19] LABS: ALB/GLOB Ratio 0.6 RATIO (0.9-2.4); AST(SGOT) 27 U/L (15-37); Alanine Aminotransfer ALT/SGPT 22 U/L (16-61); Alkaline Phosphatase 50 U/L (45-117); Globulin 3.3 g/dL (2.2-4.2); Protein, Total 5.3 g/dL (6.4-8.2)
[2020-08-21 20:36] LABS: Urine Chloride 18 mmol/L (Not Establ.); Urine Sodium 11 mmol/L (Not Establ.)
[2020-08-21] MEDS: Finasteride 5 MG Tablet PO (21:01)
[2020-08-22] VITALS (11 sets, daily range): BP systolic 116–153; BP diastolic 46–81; PULSE 100–120; RESP 18; TEMP 37.1–37.6; O2SAT 94–95
[2020-08-22] MEDS: 0.9% Normal Saline 1,000 ML 150 ML IV ×2 (06:02→13:33)
[2020-08-22 06:55] LABS: Absolute Lymphocyte Count 0.97 X10^3/uL (0.83-4.51); Absolute Neutrophil Count 7.8 X10^3/uL (2.0-7.7); Basophil# 0.02 X10^3/uL; Basophil% 0.2 % (0-1); Eosinophil# 0.03 X10^3/uL; Eosinophils% 0.3 % (0-5); Hematocrit 29.6 % (40-54); Lymphocyte # 0.97 X10^3/ul (4.0); Mean Corp Hgb Conc 30.4 g/dL (32-36); Mean Corpuscular Hgb 29.8 pg (27.0-32.0); Mean Platelet Vol. 9.9 fl (6.2-12.0); Monocyte# 0.85 X10^3/uL; Monocyte% 8.7 % (0-10); NRBC Flagged by Analyzer 0 % (0-5); Neutrophil # 7.79 X10^3/uL (2.7-7.7); Platelet Count 147 K/mm3 (150-450); RBC Distribution Width CV 14.4 % (11.6-14.6); RBC Distribution Width SD 51.8 fl (35.1-43.9); Red Blood Count 3.02 M/mm3 (4.6-6.2); White Blood Count 9.7 K/mm3 (4.4-11.0)
[2020-08-22 07:34] LABS: Anion Gap 9 (5-15); BUN 41 mg/dL (7-18); BUN/Creat Ratio 16.3 RATIO (10-20); Calcium,Total 7.3 mg/dL (8.5-10.1); Chloride 112 mmol/L (98-107); Creatinine, Serum 2.52 mg/dL (0.70-1.30); EST Glomerular Filtration Rate 26 mL/min (>60); Est Glom Filt Rate - Afr Amer 32 mL/min (>60); Estimated Creatinine Clearance 22.24 ml/min; Glucose 127 mg/dL (74-106); Potassium 4.8 mmol/L (3.5-5.1); Prealbumin 6.3 mg/dL (20.0-40.0); Sodium Level 139 mmol/L (136-145)
[2020-08-22] MEDS: Tamsulosin HCl 0.4 MG Capsule PO ×2 (08:21→18:17)
--- NOTE | 2020-08-22 09:21 | PN.SURG_ITS ---
Patient Problems: Active and Suspected Problems (Last Reviewed 08/17/20 @ 07:35 by Haylee Landon) Intractable generalized abdominal pain (Acute) Subjective: Patient's urine output is improving after boluses, creatinine is also improved to 2.5 from 3.03, FENa showed prerenal, wound VAC placed - Physical Exam Vitals/I&O's: Vital Signs Temp Pulse Resp BP Pulse Ox 99.7 F H 104 H 18 116/46 L 95 08/22/20 08:20 08/22/20 08:20 08/22/20 08:20 08/22/20 08:20 08/22/20 08:20 Oxygen Flow Rate (L/min) 2 Oxygen Delivery Method Nasal Cannula Weight: 225 lb Body Mass Index (BMI) 34.2 Intake and Output for Last 24 Hours 08/20/20 08/21/20 08/22/20 23:59 23:59 23:59 Intake Total 5537.92 / 5537.92 6522.5 / 6522.5 1472.5 / 1472.5 Output Total 635 / 635 255 / 385 330 / 330 Balance 4902.92 / 4902.92 6267.5 / 6137.5 1142.5 / 1142.5 General: Alert, Oriented x3, Cooperative, No apparent distress Lungs: Normal air movement Cardiovascular: Regular rate Abdomen: Soft, Tender - Near incision clean dry and intact, - - Wound VAC in place Microbiology Past 72 Hours 08/20/20 Unknown Wound Drainage - Abdominal Gram Stain - Final 08/20/20 Unknown Wound Drainage - Abdominal Wound Culture - Preliminary No growth-Final to follow 08/19/20 18:40 Mucosa - Nasopharyngeal SARS-CoV-2 Antigen (Rapid) - Final Laboratory Results 08/21/20 16:25: Sodium 143, Potassium 5.2 H, Chloride 113 H, Carbon Dioxide 24.0, Anion Gap 6, BUN 37 H, Creatinine 3.03 H, Estim Creat Clear Calc 18.50, Est GFR (MDRD) Af Amer 26 L, Est GFR (MDRD) Non-Af 21 L, BUN/Creatinine Ratio 12.2, Glucose 133 H, Calcium 7.2 L, Total Bilirubin 0.70, AST 27, ALT 22, Alkaline Phosphatase 50, Total Protein 5.3 L, Albumin 2.0 L, Globulin 3.3, Albumin/Globulin Ratio 0.6 L 12/07/20 20:10: Ur Random Sodium 11, Urine Potassium 68.0, Urine Chloride 18 08/21/20 20:10: Urine Creatinine 292.00 08/22/20 06:10: WBC 9.7, RBC 3.02 L, Hgb 9.0 L, Hct 29.6 L, MCV 98.0 H, MCH 29.8, MCHC 30.4 L, RDW Std Deviation 51.8 H, RDW Coeff of José Miguel 14.4, Plt Count 147 L, MPV 9.9, Immature Gran % (Auto) 0.800, Neut % (Auto) 80.0 H, Lymph % (Auto) 10.0 L, [place] % (Auto) 8.7, Eos % (Auto) 0.3, Baso % (Auto) 0.2, Absolute Neuts (auto) 7.8 H, Absolute Lymphs (auto) 0.97, Nucleated RBC % 0 08/22/20 06:10: Sodium 139, Potassium 4.8, Chloride 112 H, Carbon Dioxide 18.0 L , Anion Gap 9, BUN 41 H, Creatinine 2.52 H, Estim Creat Clear Calc 22.24, Est GFR (MDRD) Af Amer 32 L, Est GFR (MDRD) Non-Af 26 L, BUN/Creatinine Ratio 16.3, Glucose 127 H, Calcium 7.3 L, Prealbumin 6.3 L Current Medications Enoxaparin Sodium (Enoxaparin 40 Mg/0.4 Ml Syringe) 40 mg SC DAILY [facility] Last Admin: 08/21/20 13:51 Dose: 40 mg Documented by: Finasteride (Finasteride 5 Mg Tablet) 5 mg PO QHS [facility] Last Admin: 08/21/20 21:01 Dose: 5 mg Documented by: Sodium Chloride () 1,000 mls @ 150 mls/hr IV .Q6H40M [facility] Last Admin: 08/22/20 06:02 Dose: 150 mls/hr Documented by: Morphine Sulfate (Morphine 2 Mg/Ml Syringe) 2 - 4 mg IV Q2H PRN PRN PRN Reason: Pain Score 1-10 Last Admin: 08/21/20 20:19 Dose: 4 mg Documented by: Nutritional Formula (Lactose Free) (Ensure Enlive 120 Ml Liquid) 120 ml PO 4X/DAY [facility] Last Admin: 08/21/20 20:22 Dose: Not Given Documented by: Ondansetron HCl (Ondansetron 4 Mg/2 Ml Vial) 4 mg IV Q8H PRN PRN PRN Reason: NAUSEA Sodium Chloride (0.9% Saline Lock 10 Ml Syringe) 10 - 40 ml IV UD PRN PRN Reason: SALINE FLUSH Last Admin: 08/20/20 05:15 Dose: 10 ml Documented by: Tamsulosin HCl (Tamsulosin Hcl 0.4 Mg Capsule) 0.4 mg PO BID@0830,1730 [facility] Last Admin: 08/22/20 08:21 Dose: 0.4 mg Documented by: Medical Necessity - Tobacco Use Smoking Status: Never smoker Tobacco Use: Chew Assessment/Plan All Active Problems (Last Reviewed 08/17/20 @ 07:35 by Haylee Landon) Intractable generalized abdominal pain (Acute) Hx of tonsillectomy (Acute) Left inguinal hernia (Acute) Left inguinal pain (Acute) COVID-19 (Resolved) Suicidal ideation (Acute) Nausea (Acute) Abdominal pain (Acute) Fever (Acute) 79 y/o M s/p sigmoidectomy, excision of subcut. seroma cavity for sigmoid mass POD 2 -continue NPO, IVF until +BF, okay for ice chips--patient does not like mouth swabs -encourage OOB to chair/amb -wound vac in place -Creatinine improved to 2.5 from 3.03, FENa showed prerenal patient did receive several boluses due to the low urine output yesterday, urine output is improving this morning -chavarria for I/os -ronnie Hughes M.D. Pager: [phone] [facility] [address] [place] [address], [facility], [address] [place] [id number] Office: [phone]
--- NOTE | 2020-08-22 09:46 | CASEMGMT ---
Social Work Note Per admissions director questions, pt has completed HCPOA and LW, haven't provided copy to [facility] and unable to bring in copies. Grace Garcia SAFETY SITTER, RESEARCH MECHANIC
[2020-08-22] MEDS: Enoxaparin 40 MG/0.4 ML Syringe SC (10:30)
[2020-08-22] MEDS: Morphine 2 MG/ML Syringe IV ×2 (14:20→20:41)
[2020-08-22] MEDS: 0.9% Saline Lock 10 ML Syringe IV (14:21)
--- NOTE | 2020-08-22 15:45 | CASEMGMT ---
Social Work Note SW updated that pt didn't do well with therapy, requesting SNF placement. SW in to speak with pt. SW introduced self and role at [facility]. Pt is alert and orientated x3. Pt confirms he should probably go to SNF. SW provided pt with list of SNF that accept his insurance. Pt asked about [facility]. SW explained that at this time, [facility] has no beds until Friday. Pt may medically make it till Friday but if he is ready for discharge before Friday pt will need a new facility choice. Pt states if TCU is unable to accept pt, his second choice is [facility]. SW explained that this worker will place pt on TCU list in the event a bed opens up or pt is not ready for discharge until Friday. Pt states understanding. SW placed a call to Diane in TCU, provided referral. Diane confirms no bed in TCU until Friday. Plan: SNF pending acceptance Grace Garcia EXTRUSION UTILITY WORKER, ROOM SERVICE BELLHOP
[2020-08-22] MEDS: 0.9% Normal Saline 1,000 ML 125 ML IV (20:41)
[2020-08-22] MEDS: Finasteride 5 MG Tablet PO (20:41)
[2020-08-23] VITALS (46 sets, daily range): BP systolic 80–185; BP diastolic 57–109; PULSE 98–140; RESP 12–40; TEMP 35.6–37.2; O2SAT 79–100
[2020-08-23] MEDS: Morphine 2 MG/ML Syringe IV ×3 (01:03→09:04)
--- NOTE | 2020-08-23 01:15 | EKGRS_ITS ---
Test Reason : TACHYCARDIA Blood Pressure : / mmHG Vent. Rate : 116 BPM Atrial Rate : 116 BPM P-R Int : 140 ms QRS Dur : 078 ms QT Int : 302 ms P-R-T Axes : 040 021 024 degrees QTc Int : 419 ms Sinus tachycardia with Premature supraventricular complexes Nonspecific ST abnormality Abnormal ECG Confirmed by FRANCO TITUS, LIGIA ([id number]), newspaper or periodical editor CHASITY REESE ([id number]) on 08/24/2020 11:18:50 AM Referred By: RUBIO Confirmed By:LIGIA GAMEZ MD
--- NOTE | 2020-08-23 01:19 | PCM.CONS.GEN ---
Problem List (1) Chest pain Status: Acute (2) Personal history of prostate cancer Status: Chronic (3) Intractable generalized abdominal pain Status: Acute (4) Hx of tonsillectomy Status: Chronic (5) Left inguinal hernia Status: Chronic (6) Left inguinal pain Status: Chronic (7) Nausea Status: Acute (8) Abdominal pain Status: Acute (9) Fever Status: Acute Reason for Consult Date of Consultation: 08/23/20 Reason for Consultation: tachycardia History of Present Illness: Patient is 79 y/o M s/p sigmoidectomy, excision of subcutaneous seroma cavity for sigmoid mass POD 3 medicine service was consulted on for tachycardia. Before patient would be seen, patient's nurse reported that patient is having excruciating chest pain. Patient was seen and examined at the bedside. The patient report excruciating right upper quadrant pain that radiates to his right groin. He reports that his chest pain had resolved. Of note patient was administered sublingual before his examination. History was difficult to obtain from patient as patient was not forthcoming with information. Before his present hospitalization stress test was planned due to an abnormal ekg. Past Medical History Past Medical History (Chronic Problems): Chronic Problems (Last Reviewed 08/23/20 @ 03:[address] Raj Méndez MD) Personal history of prostate cancer (Chronic) Hx of tonsillectomy (Chronic) Left inguinal hernia (Chronic) Left inguinal pain (Chronic) Medical History: Medical History (Last Reviewed 08/23/20 @ 03:[address] Raj Méndez MD) Left inguinal hernia (Chronic) K40.90 Left inguinal pain (Chronic) R10.32 COVID-19 (Resolved) U07.1 Suicidal ideation (Inactive) R45.851 Nausea (Acute) R11.0 Abdominal pain (Acute) R10.9 Fever (Acute) R50.9 Prostate cancer C61 Allergies Penicillins Allergy (Verified 08/19/20 10:09) Rash promethazine HCl [From Phenergan] Adverse Reaction (Verified 08/19/20 10:09) Unknown SEVERE CONFUSION, STROKE LIKE SYMPTOMS Home Medications: Ambulatory Orders Medication Instructions Recorded Finasteride [Proscar] 5 mg PO QHS 02/26/15 Tamsulosin HCl [Flomax] 0.4 mg PO BID 02/26/15 Aspirin E.C. [Ecotrin] 81 mg PO DAILY@0800 07/09/17 Surgical History: Surgical History (Last Reviewed 08/23/20 @ 04:[address] Raj Méndez MD) Hx of tonsillectomy (Chronic) Z90.89 radiation Surgical History: - - vasectemy, trauma injury to lower abd via a tailgate of a truck 5 years ao Smoking Status: Never smoker Tobacco Use: Chew - *Family History Maternal Family History: Family History (Last Reviewed 08/23/20 @ 04:[address] Raj Méndez MD) Father Heart disease Brother Prostate cancer Son Diabetes History Items: - - arthritis Paternal Family History: Family History (Last Reviewed 08/23/20 @ 04:[address] Raj Méndez MD) Father Heart disease Brother Prostate cancer Son Diabetes History Items: - - father young of mi Review of Systems Unable to obtain accurate/complete ROS d/t: Patient is not forthcoming with information. Patient Problems: Active and Suspected Problems (Last Reviewed 08/23/20 @ 03:[address] Raj Méndez MD) Intractable generalized abdominal pain (Acute) Chest pain (Acute) Nausea (Acute) Abdominal pain (Acute) Fever (Acute) - Physical Exam Vitals/I&O's: Vital Signs Temp Pulse Resp BP Pulse Ox 98.9 F 121 H 18 140/79 H 94 08/22/20 22:15 08/23/20 00:00 08/22/20 22:15 08/22/20 22:15 08/22/20 22:15 Oxygen Flow Rate (L/min) 2 Oxygen Delivery Method Nasal Cannula Weight: 102.058 kg Body Mass Index (BMI) 34.2 Intake and Output for Last 24 Hours 08/21/20 08/22/20 08/23/20 23:59 23:59 23:59 Intake Total 6522.5 / 6522.5 3502.5 / 3502.5 Output Total 255 / 385 1030 / 1030 250 / 250 Balance 6267.5 / 6137.5 2472.5 / 2472.5 -250 / -250 General: Oriented x3, Lethargic HEENT: Atraumatic, PERRLA, EOMI, Normocephalic Neck: Supple, Trachea Midline, Thyroid Normal Size and Texture Lungs: Wheezes Cardiovascular: Normal S1, Normal S2, No murmurs, Tachycardic Abdomen: Bowel Sounds Present, Soft, Tender, - - Foam dressing hold to wound VAC in place. Extremities: Capillary Refill Less than 3 Seconds, Edema - Mild bilateral legs. Skin: No rashes, No breakdown Musculoskeletal: No Tenderness to Palpation of Joints or Extremities Neurological: Neuro grossly intact Psych/Mental Status: Normal Affect, Appropriate Microbiology Past 72 Hours 08/20/20 Unknown Wound Drainage - Abdominal Gram Stain - Final 08/20/20 Unknown Wound Drainage - Abdominal Wound Culture - Preliminary No growth-Final to follow Laboratory Results 08/22/20 06:10: WBC 9.7, RBC 3.02 L, Hgb 9.0 L, Hct 29.6 L, MCV 98.0 H, MCH 29.8, MCHC 30.4 L, RDW Std Deviation 51.8 H, RDW Coeff of José Miguel 14.4, Plt Count 147 L, MPV 9.9, Immature Gran % (Auto) 0.800, Neut % (Auto) 80.0 H, Lymph % (Auto) 10.0 L, [place] % (Auto) 8.7, Eos % (Auto) 0.3, Baso % (Auto) 0.2, Absolute Neuts (auto) 7.8 H, Absolute Lymphs (auto) 0.97, Nucleated RBC % 0 08/22/20 06:10: Sodium 139, Potassium 4.8, Chloride 112 H, Carbon Dioxide 18.0 L, Anion Gap 9, BUN 41 H, Creatinine 2.52 H, Estim Creat Clear Calc 22.24, Est GFR (MDRD) Af Amer 32 L, Est GFR (MDRD) Non-Af 26 L, BUN/Creatinine Ratio 16.3, Glucose 127 H, Calcium 7.3 L, Prealbumin 6.3 L Current Medications Enoxaparin Sodium (Enoxaparin 40 Mg/0.4 Ml Syringe) 40 mg SC DAILY [facility] Last Admin: 08/22/20 10:30 Dose: 40 mg Documented by: Finasteride (Finasteride 5 Mg Tablet) 5 mg PO QHS [facility] Last Admin: 08/22/20 20:41 Dose: 5 mg Documented by: Sodium Chloride () 1,000 mls @ 125 mls/hr IV .Q8H [facility] Last Admin: 08/22/20 20:41 Dose: 125 mls/hr Documented by: Morphine Sulfate (Morphine 2 Mg/Ml Syringe) 2 - 4 mg IV Q2H PRN PRN PRN Reason: Pain Score 1-10 Last Admin: 08/23/20 01:03 Dose: 4 mg Documented by: Ondansetron HCl (Ondansetron 4 Mg/2 Ml Vial) 4 mg IV Q8H PRN PRN PRN Reason: NAUSEA Sodium Chloride (0.9% Saline Lock 10 Ml Syringe) 10 - 40 ml IV UD PRN PRN Reason: SALINE FLUSH Last Admin: 08/22/20 14:21 Dose: 10 ml Documented by: Tamsulosin HCl (Tamsulosin Hcl 0.4 Mg Capsule) 0.4 mg PO BID@0830,1730 [facility] Last Admin: 08/22/20 18:17 Dose: 0.4 mg Documented by: Assessment/Plan All Active Problems (Last Reviewed 08/23/20 @ 03:[address] Raj Méndez MD) Intractable generalized abdominal pain (Acute) Chest pain (Acute) COVID-19 (Resolved) Nausea (Acute) Abdominal pain (Acute) Fever (Acute) Tachycardia and chest pain Patient on normal saline at 125 mils per hour which understandably had recently been reduced. Will decrease normal saline further to 75 mL's per hour because of wheezing on examination. We will get an echocardiogram. We will put patient on low-dose metoprolol. Chest x-ray ordered Serial cardiac enzymes ordered EKG did not show STEMI. It showed sinus tachycardia with PACs. Check magnesium and TSH. LEX on CKD stage III CR:1.93<2.52<3.03<2.76. Baseline creatinine is between 1.05-1.18. IV fluids as above Follow BMP. s/p sigmoidectomy, excision of subcutaneous seroma cavity for sigmoid mass POD 3 Management by general surgery. DVT prophylaxis With [facility]CD Office Visits / Consults: [id number] OP Consult L2
--- NOTE | 2020-08-23 02:09 | RAD_ITS ---
STUDY: X-RAY CHEST REASON FOR EXAM: Male, 79 years old. C/O CP -- PATIENT UNABLE TO TAKE IN A DEEPER INSPIRATION TECHNIQUE: Single AP portable view of the chest. COMPARISON: None. FINDINGS: The lungs are underexpanded. There is no demonstrated pleural abnormality. Normal size heart. Normal mediastinum and gurpreet. Normal visualized pulmonary arteries. Normal visualized aortic arch and descending thoracic aorta. Normal visualized thoracic spine. There is degenerative osteoarthritis of the bilateral shoulders. There is gaseous distention of the colon is likely an ileus. RAD/Chest 1 View (Portable) IMPRESSION: Degenerative changes, as described above. No demonstrated acute cardiopulmonary process. Electronically Signed: Nikita Mckeon, at 2:53 EST Tel , Service support ,
[2020-08-23] MEDS: Nitroglycerin (INPATIENT USE) 0.4 MG TAB.SUBL SUBLINGUAL (02:12)
[2020-08-23 02:35] LABS: Absolute Lymphocyte Count 0.78 X10^3/uL (0.83-4.51); Absolute Neutrophil Count 8.1 X10^3/uL (2.0-7.7); Basophil# 0.02 X10^3/uL; Basophil% 0.2 % (0-1); Eosinophil# 0.01 X10^3/uL; Eosinophils% 0.1 % (0-5); Hematocrit 27.5 % (40-54); Hemoglobin 8.6 g/dL (13.0-16.5); Lymphocyte # 0.78 X10^3/ul (4.0); Lymphocyte % 7.9 % (19-41); Mean Corp Hgb Conc 31.3 g/dL (32-36); Mean Corpuscular Hgb 30.1 pg (27.0-32.0); Mean Corpuscular Volume 96.2 fL (80-94); Mean Platelet Vol. 9.7 fl (6.2-12.0); Monocyte# 0.79 X10^3/uL; NRBC Flagged by Analyzer 0 % (0-5); Neutrophil # 8.05 X10^3/uL (2.7-7.7); Neutrophil % 81.9 % (47-70); Platelet Count 191 K/mm3 (150-450); RBC Distribution Width CV 14.5 % (11.6-14.6); RBC Distribution Width SD 51.2 fl (35.1-43.9); Red Blood Count 2.86 M/mm3 (4.6-6.2); White Blood Count 9.8 K/mm3 (4.4-11.0)
--- NOTE | 2020-08-23 02:40 | ECHOD_ITS ---
Reason For Study: CHEST PAIN Procedure This was a 2D Doppler, Color Flow transthoracic echocardiogram. The study was technically difficult. PATIENT REFUSED COMPLETION OF EXAM. Exam performed portable in patient room. Left Ventricle Normal LV size. Moderate concentric left ventricular hypertrophy. Left ventricular systolic function is hyperdynamic. The estimated ejection fraction is 70 %. Stage 1 diastolic dysfunction. No regional wall motion abnormalities noted. Right Ventricle Normal RV size. Normal systolic function. Atria Normal left atrium. Normal right atrium. Mitral Valve Normal mitral valve. Tricuspid Valve Normal tricuspid valve. Aortic Valve Trisinus/trileaflet aortic valve. Pulmonic Valve Normal pulmonic valve. Great Vessels Normal aortic root. The pulmonary artery is normal size. Normal inferior vena cava. Pericardium/Pleural No pericardial effusion. MMode/2D Measurements & Calculations LVIDd: 3.0 cm IVSd: 1.2 cm Ao root diam: 3.0 cm LVIDs: 2.1 cm LVPWd: 1.4 cm RVDd: 3.0 cm FS: 30.3 % LAV(MOD-bp): 35.3 ml LVAd ap4: 21.4 cm2 SV(MOD-sp4): 27.7 ml LAV(MOD-bp) Indexed: 16.4 ml/m2 EDV(MOD-sp4): 45.8 ml LAV(MOD-sp2): 39.0 ml EDV(sp4-el): 47.8 ml LAV(MOD-sp4): 30.6 ml LVAs ap4: 11.6 cm2 ESV(MOD-sp4): 18.1 ml ESV(sp4-el): 16.8 ml EF(MOD-sp4): 60.5 % EF(sp4-el): 64.8 % SV(sp4-el): 31.0 ml LA A4 area: 14.4 cm2 LA dimension(2D): 4.1 cm RA A4 area: 12.0 cm2 Time Measurements MV dec time: 0.14 sec Doppler Measurements & Calculations MV E max yusuf: 74.7 cm/sec Lat Peak E' Yusuf: 10.1 cm/sec Med Peak E' Yusuf: 8.2 cm/sec MV A max yusuf: 158.4 cm/sec E/E' lat: 7.4 E/E' med: 9.1 MV E/A: 0.47 Ao V2 max: 189.4 cm/sec LV V1 max: 133.0 cm/sec Ao max P.4 mmHg LV V1 max P.1 mmHg Interpretation Summary Normal LV size. Moderate concentric left ventricular hypertrophy. Left ventricular systolic function is hyperdynamic. The estimated ejection fraction is 70 %. Stage 1 diastolic dysfunction. Ordering Physician: Raj Méndez Referring Physician: BELINDA VOGEL Performed By: Faiza Delgado RDCS
[2020-08-23 02:50] LABS: Anion Gap 10 (5-15); BUN 45 mg/dL (7-18); BUN/Creat Ratio 23.3 RATIO (10-20); Calcium,Total 7.8 mg/dL (8.5-10.1); Chloride 113 mmol/L (98-107); Creatinine, Serum 1.93 mg/dL (0.70-1.30); EST Glomerular Filtration Rate 36 mL/min (>60); Est Glom Filt Rate - Afr Amer 43 mL/min (>60); Estimated Creatinine Clearance 29.04 ml/min; Glucose 149 mg/dL (74-106); Magnesium 2.1 mg/dL (1.6-2.6); Potassium 4.2 mmol/L (3.5-5.1); Sodium Level 145 mmol/L (136-145)
[2020-08-23] MEDS: Metoprolol Tartrate 25 MG Tablet 12.5 MG PO ×2 (02:54→09:02)
[2020-08-23] MEDS: 0.9% Normal Saline 1,000 ML 75 ML IV (06:06)
[2020-08-23 06:44] LABS: Thyroid Stim Hormone (TSH) 2.23 uIU/mL (0.358-3.74)
--- NOTE | 2020-08-23 07:50 | PCM.PN.SRG ---
Patient Problems: Active and Suspected Problems (Last Reviewed 08/23/20 @ 03:[address] Raj Méndez MD) Intractable generalized abdominal pain (Acute) Chest pain (Acute) Nausea (Acute) Abdominal pain (Acute) Fever (Acute) Subjective: Pt had some tachycardia overnight started on metoprolol - Physical Exam Vitals/I&O's: Vital Signs Temp Pulse Resp BP Pulse Ox 97.9 F 107 H 18 161/93 H 92 08/23/20 06:10 08/23/20 06:10 08/23/20 06:10 08/23/20 06:10 08/23/20 06:10 Oxygen Flow Rate (L/min) 2 Oxygen Delivery Method Nasal Cannula Weight: 224 lb 15.99 oz Body Mass Index (BMI) 34.2 Intake and Output for Last 24 Hours 08/21/20 08/22/20 08/23/20 23:59 23:59 23:59 Intake Total 6522.5 / 6522.5 3502.5 / 3502.5 1000.00 / 1000.00 Output Total 255 / 385 1030 / 1030 550 / 550 Balance 6267.5 / 6137.5 2472.5 / 2472.5 450.00 / 450.00 General: Oriented x3, Cooperative, No apparent distress Lungs: Wheezes - slight audible Cardiovascular: Tachycardic Abdomen: Soft, Tender - near incision, with wound vac in place, no PS Extremities: No clubbing, No cyanosis Microbiology Past 72 Hours 08/20/20 Unknown Wound Drainage - Abdominal Gram Stain - Final 08/20/20 Unknown Wound Drainage - Abdominal Wound Culture - Preliminary No growth-Final to follow Laboratory Results 08/23/20 02:15: WBC 9.8, RBC 2.86 L, Hgb 8.6 L, Hct 27.5 L, MCV 96.2 H, MCH 30.1, MCHC 31.3 L, RDW Std Deviation 51.2 H, RDW Coeff of José Miguel 14.5, Plt Count 191, MPV 9.7, Immature Gran % (Auto) 1.900 H, Neut % (Auto) 81.9 H, Lymph % (Auto) 7.9 L, [place] % (Auto) 8.0, Eos % (Auto) 0.1, Baso % (Auto) 0.2, Absolute Neuts (auto) 8.1 H, Absolute Lymphs (auto) 0.78 L, Nucleated RBC % 0 08/23/20 02:15: Sodium 145, Potassium 4.2, Chloride 113 H, Carbon Dioxide 22.0, Anion Gap 10, BUN 45 H, Creatinine 1.93 H, Estim Creat Clear Calc 29.04, Est GFR (MDRD) Af Amer 43 L, Est GFR (MDRD) Non-Af 36 L, BUN/Creatinine Ratio 23.3 H, Glucose 149 H, Calcium 7.8 L, Magnesium 2.1 08/23/20 02:15: Troponin I < 0.015 08/23/20 05:44: Troponin I < 0.015, TSH 2.23 Current Medications Enoxaparin Sodium (Enoxaparin 40 Mg/0.4 Ml Syringe) 40 mg SC DAILY [facility] Last Admin: 08/22/20 10:30 Dose: 40 mg Documented by: Finasteride (Finasteride 5 Mg Tablet) 5 mg PO QHS [facility] Last Admin: 08/22/20 20:41 Dose: 5 mg Documented by: Sodium Chloride () 1,000 mls @ 75 mls/hr IV .[id number] [facility] Last Admin: 08/23/20 06:06 Dose: 75 mls/hr Documented by: Metoprolol Tartrate (Metoprolol Tartrate 25 Mg Tablet) 12.5 mg PO BID [facility] Last Admin: 08/23/20 02:54 Dose: 12.5 mg Documented by: Morphine Sulfate (Morphine 2 Mg/Ml Syringe) 2 - 4 mg IV Q2H PRN PRN PRN Reason: Pain Score 1-10 Last Admin: 08/23/20 04:08 Dose: 4 mg Documented by: Nitroglycerin (Nitroglycerin (Inpatient Use) 0.4 Mg Tab.Subl) 0.4 mg SUBLINGUAL Q5M PRN PRN Reason: CARDIAC/CHEST PAIN Last Admin: 08/23/20 02:12 Dose: 0.4 mg Documented by: Ondansetron HCl (Ondansetron 4 Mg/2 Ml Vial) 4 mg IV Q8H PRN PRN PRN Reason: NAUSEA Sodium Chloride (0.9% Saline Lock 10 Ml Syringe) 10 - 40 ml IV UD PRN PRN Reason: SALINE FLUSH Last Admin: 08/22/20 14:21 Dose: 10 ml Documented by: Tamsulosin HCl (Tamsulosin Hcl 0.4 Mg Capsule) 0.4 mg PO BID@0830,1730 [facility] Last Admin: 08/22/20 18:17 Dose: 0.4 mg Documented by: Medical Necessity - Tobacco Use Smoking Status: Never smoker Tobacco Use: Chew Assessment/Plan All Active Problems (Last Reviewed 08/23/20 @ 03:[address] Raj Méndez MD) Intractable generalized abdominal pain (Acute) Chest pain (Acute) COVID-19 (Resolved) Nausea (Acute) Abdominal pain (Acute) Fever (Acute) 79 y/o M s/p sigmoidectomy, excision of subcut. seroma cavity for sigmoid mass POD 3 -continue NPO, IVF until +BF, okay for ice chips--patient does not like mouth swabs -encourage OOB to chair/amb -wound vac in place -Acute kidney injury?creatinine improved to 1.9 from 2.5, good urine output yesterday -chavarria for I/os -lovenox -Appreciate hospitalist assistance with tachycardia work-up. started on metoprolol Addendum: Pt had tachy to 130-140 hr and HTN- will change to coreg, d/w pt son as well. Pt also had some confusion with this event- now Ox3 Rita Hughes M.D. Pager: [phone] [facility] [address] [place] [address], [facility], [address] [place] [id number] Office: [phone]
[2020-08-23] MEDS: Enoxaparin 40 MG/0.4 ML Syringe SC (09:03)
[2020-08-23] MEDS: Tamsulosin HCl 0.4 MG Capsule PO (09:03)
[2020-08-23] MEDS: 0.9% Saline Lock 10 ML Syringe IV ×5 (09:04→22:20)
--- NOTE | 2020-08-23 10:38 | NURSING ---
wound photo: abdomen
[2020-08-23] MEDS: Carvedilol 3.125 MG TABLET PO (11:25)
[2020-08-23 13:01] LABS: Bedside Glucose 174 mg/dL (70-110)
--- NOTE | 2020-08-23 13:24 | NURSING ---
TRYING TO CLIMB OUT OF BED. VERY DIAPHORETIC. RUN OF V-TACH ON MONITOR. TEXT SENT TO REGARDING CONDITION.
[2020-08-23] MEDS: Furosemide 40 MG/4 ML Vial IV ×2 (13:47→17:48)
--- NOTE | 2020-08-23 13:55 | NURSING ---
REPORT CALLED TO DANO OLIVARES IN ICU. PER VENESSA,ASSEMBLER LAY UPS - AWARE OF PATIENT'S CONDITION & WILL UPDATE JEFF. RICHARD
--- NOTE | 2020-08-23 14:21 | RAD_ITS ---
STUDY: X-RAY CHEST REASON FOR EXAM: Male, 79 years old. Shortness of breath. TECHNIQUE: Single AP portable view of the chest. COMPARISON: Comparison is made with prior study done earlier today at 2:13 AM. FINDINGS: EKG electrodes are seen. The lungs are once again underexpanded. There is evidence of increased markings at the left lung base suggestive of left basilar atelectasis and/or infiltrate. There is blunting of the left costophrenic angle. Normal size heart. Normal mediastinum and gurpreet. Normal visualized pulmonary arteries. Normal visualized aortic arch and descending thoracic aorta. Normal visualized thoracic spine. Normal visualized ribs, clavicles, and shoulders. Gaseous distention of the stomach and colon. RAD/Chest 1 View (Portable) IMPRESSION: Underexpansion of the lungs with findings suggesting left basilar infiltration and/or atelectasis. Gaseous distention of the stomach and colon. Electronically Signed: Merrick Shelton, at 15:32 EST , Service support ,
[2020-08-23] MEDS: Ipratropium/Albuterol Sulfate 3 ML AMPUL.NEB INHALATION (15:00)
--- NOTE | 2020-08-23 15:01 | PCM.PN.BLA ---
Progress Note Pt seen, he has increased WOB, CXR shows an air filled stomach, d/w Dr. Bridges will place NG, pt abdomen is more distended. Did let pt know pathology was diverticular not carcinoma of the cause of obstruction Pt HR improved with coreg/metoprolol, BP was initially low on transfer to ICU now SBP 108 Informed Pt son-martin (POA) and his [id number] (martins ) of new events. STROKE Vital Signs/Narrative: Vital Signs Temp Pulse Resp BP Pulse Ox 08/23/20 15:00 119 H 37 H 91 08/23/20 14:28 114 H 36 H 90 08/23/20 14:08 79 08/23/20 14:00 94 08/23/20 13:50 86 08/23/20 13:45 40 H 86 08/23/20 13:12 140 H 08/23/20 12:12 98.3 F 122 H 20 H 176/105 H 95
--- NOTE | 2020-08-23 15:02 | CHAPLAIN ---
Type of Pastoral Visit ___ Initial Visit _x__ Follow-up Visit ___ On-call Visit ___ General Patient Visit ___ Spiritual Assessment ___ Family Conference ___ Bereavement ___ Rapid Response ___ Code Blue ___ Other (describe below) Pastoral Care Referral From _x__ Patient ___ Family ___ Nurse ___ Physician ___ Sash Assembler ___ Alarm Mechanism Adjuster ___ Other (describe below) Sacrament/Intervention ___ Active listening ___ Anointing ___ Episcopalian ___ Bereavement ___ Communion ___ Madyson exploration ___ ___ Life review _x__ Prayer ___ Reconciliation ___ Sacrament of Sick _x__ Supportive presence ___ Wedding ___ Other (describe below) Pastoral Comments upon entering room to do a follow up visit discovered staff preparing pt to move to ICU; told patient that he would be remembered in prayer; went with pt and staff to ICU where he was then transferred to their care
--- NOTE | 2020-08-23 15:20 | PCM.PN.BLA ---
Progress Note Mr. Bello is an 79-year-old gentleman who presented to the ER with diffuse abdominal pain. He underwent an initial laparoscopic converted to open sigmoidectomy. It was found to be secondary to a large sigmoid mass, which seems to be secondary to diverticulitis. He is afebrile without a leukocytosis. Medicine was consulted by surgery early this morning secondary to ongoing tachycardia. His fluids were decreased from 150 to 75 cc per hour, and he was given a dose of metoprolol 12.5 mg. He remained tachycardic so that dose was repeated this morning and then his blood pressure was found to be significantly elevated into the 180s systolic so he was transitioned to Coreg and given a dose of 3.125 mg. Initially on exam it was thought that he was wheezing so duo nebs were ordered, he denies a history of smoking. I was contacted later in the afternoon at around [phone] that patient was doing worse, with increased work of breathing and increasing oxygen requirements as well as worsening breath sounds are more diminished. Also his tachycardia had continued and maintained in the 130s. At this point he was ordered a dose of IV Lasix and transferred downstairs to the ICU. When he arrived to the ICU he was placed on BiPAP and initially his blood pressure had significantly decrease to 80 systolic with a MAP of 70. On review of his chest x-ray as well as his previous CT scan from June there was concern that it was a possibility of pulmonary hypertension however he had an echo which did not demonstrate this today. Instead he had a normal EF with a hyperdynamic LV and stage I diastolic dysfunction. Given the fact that his fluid volume was 14 L positive despite his worsening renal function will likely give him a second dose of Lasix this evening to assist in diuresis which will hopefully help both his heart rate, and his breathing. 1. Acute hypoxic respiratory failure secondary to volume overload -Continue with IV Lasix -If his tachycardia continues and his blood pressure can tolerate we will resume rate control -Previous EKGs demonstrated sinus tachycardia. And his troponins were normal this morning 2. Abdominal pain secondary to a large bowel obstruction from obstructing lesion in the sigmoid colon/acute renal failure -Status post surgical excision August 20, 2020 -He did receive antibiotics prior, during, and after the surgical procedure -Remains afebrile without a leukocytosis -Wound VAC is in place -LEX is prerenal. On August 20, 2020 he was 1.05 and then he increased to 3.03 the next day. Today he is down to 1.93 3. BPH -Stable Critical care time spent managing patient and coordinating care 45 minutes STROKE Vital Signs/Narrative: Vital Signs Temp Pulse Resp BP Pulse Ox 08/23/20 15:00 119 H 37 H 91 08/23/20 14:28 114 H 36 H 90 08/23/20 14:08 79 08/23/20 14:00 94 08/23/20 13:50 86 08/23/20 13:45 40 H 86 08/23/20 13:12 140 H 08/23/20 12:12 98.3 F 122 H 20 H 176/105 H 95 Procedures: [id number] Critial Care 1st Hr
--- NOTE | 2020-08-23 15:26 | CON.PCM_ITS ---
Problem List (1) Abdominal pain Status: Acute (2) Acute respiratory failure with hypoxia Status: Acute Reason for Consult Date of Consultation: 08/23/20 Reason for Consultation: Acute hypoxic respiratory failure History of Present Illness: The patient is an 79 year old M, with unclear past medical history, who presented to [facility] on 08/19/2020 secondary to 2 to 3 weeks of gradual onset left groin pain without radiation to the testicles. Patient reportedly had not had a bowel movement in the last 2 to 3 days which was unusual for him. Patient states that he is last bowel movement was soft. Patient reportedly had not had surgery evaluating as an outpatient and a CT was ordered but this had not been done yet. Patient reportedly had a cough ear fall on him previously. In the ER, patient had a CT scan showing diverticulosis with a possible splenic artery aneurysm. Patient did not have a leukocytosis, but creatinine was slightly elevated at 1.18. UA was unremarkable. Patient was given morphine with improvement in pain. Patient reportedly did have an enema, but did not have improvement in symptomatology. There was some concern for large bowel obst ruction, so patient was admitted to the hospital for further evaluation. On 08/23/2020, the patient was evaluated by the medicine service postop day #3 secondary to tachycardia. Patient reportedly had excruciating chest pain and right upper quadrant pain. Patient had an echocardiogram, chest x-ray and decrease in IV fluids ordered. Later in the day, patient developed significant respiratory distress. Patient was transferred to the intensive care unit for further evaluation. At that time, patient was noted to be on BiPAP therapy. Patient was tachycardic with cool extremities. On my arrival, patient was not able to answer any questions. Patient was using accessory muscles on BiPAP therapy. A chest x-ray was obtained. This showed very small lung volumes. Dr. Rankin was called and gave a wet read on the echocardiogram completed earlier in the day. This was relatively unremarkable. Formal report is still pending. Patient did not have any pulmonary function tests available for review. Chest x-ray showed significantly decreased lung volumes with gastric dilatation. Patient was taken off of BiPAP therapy and an NG was inserted. NG had removal of 1600 cc of liquid and additional air. Patient's respiratory status somewhat improved. Patient continued to have upper airways obstruction that appeared to be positional. Patient was unable to provide any review of systems at this time. Past Medical History Past Medical History (Chronic Problems): Chronic Problems (Last Reviewed 08/23/20 @ 03:[address] Raj Méndez MD) Personal history of prostate cancer (Chronic) Hx of tonsillectomy (Chronic) Left inguinal hernia (Chronic) Left inguinal pain (Chronic) Medical History: Medical History (Last Reviewed 08/23/20 @ 03:[address] Raj Méndez MD) Left inguinal hernia (Chronic) K40.90 Left inguinal pain (Chronic) R10.32 COVID-19 (Resolved) U07.1 Suicidal ideation (Inactive) R45.851 Nausea (Acute) R11.0 Abdominal pain (Acute) R10.9 Fever (Acute) R50.9 Prostate cancer C61 Allergies Penicillins Allergy (Verified 08/19/20 10:09) Rash promethazine HCl [From Phenergan] Adverse Reaction (Verified 08/19/20 10:09) Unknown SEVERE CONFUSION, STROKE LIKE SYMPTOMS Home Medications: Ambulatory Orders Medication Instructions Recorded Finasteride [Proscar] 5 mg PO QHS 02/26/15 Tamsulosin HCl [Flomax] 0.4 mg PO BID 02/26/15 Aspirin E.C. [Ecotrin] 81 mg PO DAILY@0800 07/09/17 Surgical History: Surgical History (Last Reviewed 08/23/20 @ 04:[address] Raj Méndez MD) Hx of tonsillectomy (Chronic) Z90.89 radiation Surgical History: - - vasectemy, trauma injury to lower abd via a tailgate of a truck 5 years ao Smoking Status: Never smoker Tobacco Use: Chew - *Family History Maternal Family History: Family History (Last Reviewed 08/23/20 @ 04:[address] Raj Méndez MD) Father Heart disease Brother Prostate cancer Son Diabetes History Items: - - arthritis Paternal Family History: Family History (Last Reviewed 08/23/20 @ 04:[address] Raj Méndez MD) Father Heart disease Brother Prostate cancer Son Diabetes History Items: - - father young of mi Review of Systems Unable to obtain accurate/complete ROS d/t: See HPI Patient Problems: Active and Suspected Problems (Last Reviewed 08/23/20 @ 03:[address] Raj Méndez MD) Intractable generalized abdominal pain (Acute) Chest pain (Acute) Nausea (Acute) Abdominal pain (Acute) Fever (Acute) Objective: Multiple images were reviewed. As stated, patient did have an OG placed and had 1600 cc removed. Echocardiogram was reviewed with the portfolio manager briefly on the phone. Patient has not had any pulmonary function test previously. - Physical Exam Vitals/I&O's: Vital Signs Temp Pulse Resp BP Pulse Ox 36.8 C 119 H 37 H 176/105 H 91 08/23/20 12:12 08/23/20 15:00 08/23/20 15:00 08/23/20 12:12 08/23/20 15:00 Oxygen Flow Rate (L/min) 6 Oxygen Delivery Method Nasal Cannula Weight: 102.058 kg Body Mass Index (BMI) 34.2 Intake and Output for Last 24 Hours 08/21/20 08/22/20 08/23/20 23:59 23:59 23:59 Intake Total 6522.5 / 6522.5 3502.5 / 3502.5 1040.00 / 1040.00 Output Total 255 / 385 1030 / 1030 875 / 875 Balance 6267.5 / 6137.5 2472.5 / 2472.5 165.00 / 165.00 General: Confused, Disoriented, Non-Cooperative HEENT: Atraumatic, PERRLA, EOMI, Normocephalic, - - No scleral icterus or injection noted Oral: No Gingival or Mucosal Lesions/ Ulcerations, Dry Mucosa Neck: Supple, No Nodes, Trachea Midline, JVD, Right, - - Laryngeal wheeze noted. Lungs: No rhonchi, No wheeze, No rales, Diminished Cardiovascular: Normal S1, Normal S2, No murmurs, No rub noted, No Gallop, Tachycardic Abdomen: Distended, Guarding, Tender - Around wound VAC Extremities: No clubbing, No cyanosis, Edema - Trace to 1+ Skin: No rashes, No breakdown Musculoskeletal: No Tenderness to Palpation of Joints or Extremities, - - Cool extremities noted Lymphatic: No Cervical, Supraclavicular, or Inguinal Adenopathy Neurological: Cranial nerves II-XII grossly intact, Neuro grossly intact, Motor Exam 5/5 strength throughout Psych/Mental Status: Anxious, Restless Microbiology Past 72 Hours 08/20/20 Unknown Wound Drainage - Abdominal Gram Stain - Final 08/20/20 Unknown Wound Drainage - Abdominal Wound Culture - Final No growth aerobically. 08/20/20 Unknown Wound Drainage - Abdominal Anaerobic Culture - Preliminary No growth in 48 hours. Laboratory Results 08/23/20 02:15: WBC 9.8, RBC 2.86 L, Hgb 8.6 L, Hct 27.5 L, MCV 96.2 H, MCH 30.1, MCHC 31.3 L, RDW Std Deviation 51.2 H, RDW Coeff of José Miguel 14.5, Plt Count 191, MPV 9.7, Immature Gran % (Auto) 1.900 H, Neut % (Auto) 81.9 H, Lymph % (Auto) 7.9 L, [place] % (Auto) 8.0, Eos % (Auto) 0.1, Baso % (Auto) 0.2, Absolute Neuts (auto) 8.1 H, Absolute Lymphs (auto) 0.78 L, Nucleated RBC % 0 08/23/20 02:15: Sodium 145, Potassium 4.2, Chloride 113 H, Carbon Dioxide 22.0, Anion Gap 10, BUN 45 H, Creatinine 1.93 H, Estim Creat Clear Calc 29.04, Est GFR (MDRD) Af Amer 43 L, Est GFR (MDRD) Non-Af 36 L, BUN/Creatinine Ratio 23.3 H, Glucose 149 H, Calcium 7.8 L, Magnesium 2.1 08/23/20 02:15: Troponin I < 0.015 08/23/20 05:44: Troponin I < 0.015, TSH 2.23 08/23/20 08:29: Troponin I < 0.015 08/23/20 12:57: POC Glucose 174 H Current Medications Albuterol/Ipratropium (Ipratropium/Albuterol Sulfate 3 Ml Ampul.Neb) 3 ml INHALATION Q4HWA.RT [facility] Last Admin: 08/23/20 15:00 Dose: 3 ml Documented by: Enoxaparin Sodium (Enoxaparin 40 Mg/0.4 Ml Syringe) 40 mg SC DAILY [facility] Last Admin: 08/23/20 09:03 Dose: 40 mg Documented by: Finasteride (Finasteride 5 Mg Tablet) 5 mg PO QHS [facility] Last Admin: 12/08/20 20:41 Dose: 5 mg Documented by: Famotidine 20 mg/ Sodium (Chloride) 10 mls @ 300 mls/hr IV Q12 [facility] Morphine Sulfate (Morphine 2 Mg/Ml Syringe) 2 - 4 mg IV Q2H PRN PRN PRN Reason: Pain Score 1-10 Last Admin: 08/23/20 09:04 Dose: 4 mg Documented by: Nitroglycerin (Nitroglycerin (Inpatient Use) 0.4 Mg Tab.Subl) 0.4 mg SUBLINGUAL Q5M PRN PRN Reason: CARDIAC/CHEST PAIN Last Admin: 08/23/20 02:12 Dose: 0.4 mg Documented by: Ondansetron HCl (Ondansetron 4 Mg/2 Ml Vial) 4 mg IV Q8H PRN PRN PRN Reason: NAUSEA Sodium Chloride (0.9% Saline Lock 10 Ml Syringe) 10 - 40 ml IV UD PRN PRN Reason: SALINE FLUSH Last Admin: 08/23/20 13:47 Dose: 10 ml Documented by: Tamsulosin HCl (Tamsulosin Hcl 0.4 Mg Capsule) 0.4 mg PO BID@0830,1730 [facility] Last Admin: 08/23/20 09:03 Dose: 0.4 mg Documented by: Clinical Impression(s) from Imaging Studies Chest X-Ray 08/23/20 02:09 IMPRESSION: Degenerative changes, as described above. No demonstrated acute cardiopulmonary process. Electronically Signed: Nikita Mckeon, at 2:53 EST Tel , Service support , Chest X-Ray 08/23/20 14:21 IMPRESSION: Underexpansion of the lungs with findings suggesting left basilar infiltration and/or atelectasis. Gaseous distention of the stomach and colon. Electronically Signed: Merrick Shelton, at 15:32 EST , Service support , Assessment/Plan Active and Suspected Problems (Last Reviewed 08/23/20 @ 03:[address] Raj Méndez MD) Intractable generalized abdominal pain (Acute) Chest pain (Acute) Nausea (Acute) Abdominal pain (Acute) Fever (Acute) RECOMMENDATIONS: 1. Hold BiPAP for now 2. NG to low intermittent suction 3. ABG in an hour 4. Wean oxygen as tolerated 5. Agree with holding IV fluids 6. Possibly add low-dose beta-zarina. Hold Cardizem drip IMPRESSIONS: 1. Acute hypoxic respiratory failure Exact etiology is unclear at this time. Patient is requiring significant increase in FiO2 to maintain saturations. Patient has been on IV fluids, so congestive heart failure would be a consideration. However, chest x-ray shows significant restriction of lung volumes with no pleural effusion on the right. Patient was thought to have restrictive pathology, so an NG was placed with improvement. Patient is still tachypneic in an hour, will obtain an ABG. Low clinical suspicion for sepsis at this time as patient has not had any fevers or leukocytosis. 2. Large bowel obstruction secondary to sigmoid colon diverticulosis postop day #3 Surgical site appears to be doing well. Wound VAC is in place. Distention is much improved following NG drainage. Anticipate ileus leading to current symptomatology. Surgery is aware and agrees with low intermittent suction. 3. Acute kidney injury Patient appears to be improving on current regimen. However, given re spiratory issues, agree with discontinuation of IV fluids. We will continue to monitor. Patient may have an element of obstruction associated with bowel gas. Patient did have some sediment in the [place], so this will be irrigated. 4. Sinus tachycardia Unclear etiology at this time. Would hold off on the Cardizem drip for now. Patient could receive low-dose beta-zarina, but exact etiology of tachycardia is unclear at this time. This may be secondary to abdominal distention and respiratory distress and may resolve spontaneously with addressing of the underlying issue. Echocardiogram was reportedly relatively unremarkable. TIME: 40 minutes critical care time spent addressing patient's acute hypoxic respiratory failure, large bowel obstruction, acute kidney injury, sinus tachycardia, review of all data and collaboration with care team (3 PM to 4 PM) [phone]: [id number] Critical care first hour
--- NOTE | 2020-08-23 15:30 | RAD_ITS ---
STUDY: X-RAY - ABDOMEN/PELVIS REASON FOR EXAM: Male, 79 years old. NG PLACEMENT ; ABDOMEN DISTENTION TECHNIQUE: Single AP view of the abdomen / pelvis. COMPARISON: None. FINDINGS: The tip of the nasogastric tube is in the fundal portion of the stomach. Gaseous distention of the stomach as well as the colon. RAD/Abdomen Single View (Portable) IMPRESSION: The tip of the nasogastric tube is in the fundal portion of the stomach. Gaseous distention of the stomach and colon. Electronically Signed: Merrick Shelton, at 15:48 EST , Service support ,
[2020-08-23 17:16] LABS: Base Excess -6 mmol/L (-2 to +2); Bicarbonate 22.3 mmol/L (22-26); Blood Gas Specimen Type ART; O2 Delivery Device Cannula; PO2 89 mmHG (75-100); SITE R Radial; SO2 94 % (95-99); Total Carbon Dioxide 24 mmol/L; pCO2 59.5 mmHg (35-45); pH 7.18 (7.35-7.45)
[2020-08-23] MEDS: Etomidate 20 MG/10 ML Vial IV (17:55)
--- NOTE | 2020-08-23 17:59 | NURSING ---
etomadate intubeted 7.5 et tube [address] felipe
[2020-08-23] MEDS: Propofol 10MG/Ml 1,000 MG/100 ML Bottle 6.1 MG CONT INF (18:00)
--- NOTE | 2020-08-23 18:12 | RAD_ITS ---
We are attempting to reach an attending provider to discuss findings. An addendum with communication details will be sent when the communication is complete. STUDY: X-RAY CHEST REASON FOR EXAM: Male, 79 years old. ETT PLACEMENT. TECHNIQUE: 1 view COMPARISON: Prior chest radiograph of 09/02/2020 FINDINGS: Endotracheal tube terminates immediately above the essie. Enteric tube is well below the gastroesophageal junction up turned in the gastric fundus which is air distended. Very shallow inspiration with bilateral pneumothoraces. The pneumothorax at the left lung apex measures 2.6 cm from the apical pleura to the parietal pleura. The pneumothorax on the right is slightly smaller. There is also a basilar component to both. Substantial bibasilar atelectatic changes. Stable cardiac size. Normal mediastinum and gurpreet. Normal visualized pulmonary arteries. Normal visualized aortic arch and descending thoracic aorta. Normal visualized thoracic spine. Normal visualized ribs, clavicles, and shoulders. RAD/Chest 1 View (Portable) IMPRESSION: Endotracheal tube terminates immediately above the essie during a very shallow inspiration. Bilateral pneumothoraces. The left pneumothorax measures 2.6 cm from the apical pleura to the parietal pleura. The right pneumothorax slightly smaller. Both have indeterminant anterior and basilar components. Atelectatic lung changes. Stable cardiomediastinal silhouette. Enteric tube extends well below the gastroesophageal junction into an air-filled gastric fundus. Electronically Signed: Libertad Butler MD at 19:09 EST , Service support ,
--- NOTE | 2020-08-23 18:26 | CPS ---
critical value called to and .
--- NOTE | 2020-08-23 19:17 | NURSING ---
Critical radiology results reported to Primary DANO German
--- NOTE | 2020-08-23 19:40 | RAD_ITS ---
STUDY: X-RAY CHEST REASON FOR EXAM: Male, 79 years old. PNEUMOTHORAX EVALUATION TECHNIQUE: 1 view 7:38 PM COMPARISON: Prior chest radiograph of 08/23/2020 at 6:11 PM FINDINGS: Endotracheal tube remains just above the essie during a very shallow inspiration. Enteric tube is unchanged well below the gastroesophageal junction upturned in an air-filled gastric fundus. Very shallow inspiration. Stable bilateral pneumothoraces not changed from prior exam. The apical component on the left measures 2.3 cm from the visceral to the parietal pleura. On the right 2.0 cm. Stable cardiothymic silhouette. Normal mediastinum and gurpreet. Normal visualized pulmonary arteries. Normal visualized aortic arch and descending thoracic aorta. Normal visualized thoracic spine. Normal visualized ribs, clavicles, and shoulders. RAD/Chest Insp/Exp 2 View IMPRESSION: No substantial changes from prior exam. Bilateral pneumothoraces are similar to the prior exam during a very shallow inspiration with bibasilar atelectasis. Stable cardiac size. Endotracheal tube remains ending just above the essie. Enteric tube upturned in the gastric fundus. Electronically Signed: Libertad Butler MD at 20:28 EST , Service support ,
--- NOTE | 2020-08-23 19:45 | NURSING ---
Chest x-ray from post intubation showed bilateral Pneumothorax. Dr. Hughes was notified and is here at the patient bedside to place bilateral chest tubes at this time. She started on the right side and placed her first tube at 20:05 he was prepped at 20:00 and 2% lidocaine was injected to the site to numb the area at this time, tube was placed without difficulty, she then moved on to the left side it was placed at 20:17 prepped at 20:10 with lidocaine, this tube was also placed without difficulty. Chest x-ray was then obtained and both chest tubes appear to be in place and working correctly. Dr. Hughes was okay with placement.
[2020-08-23] MEDS: Lidocaine 2% (20 ml mdv) 20 ML Vial 15 ML INFILT (20:00)
--- NOTE | 2020-08-23 20:30 | RAD_ITS ---
STUDY: X-RAY CHEST REASON FOR EXAM: Male, 79 years old. chest tube placement, inspiration and expiration TECHNIQUE: 1 view 8:33 PM COMPARISON: Prior chest radiograph of 08/23/2020 at 7:38 PM FINDINGS: Bilateral pigtail-type chest tubes are present which are primarily by basilar with no substantial remaining pneumothorax on the right or the left. Endotracheal tube remains ending just above the essie. Enteric tube remains upturned in the gastric lumen. There is a continued shallow expansion with bibasilar atelectatic changes. Normal size heart. Normal mediastinum and gurpreet. Normal visualized pulmonary arteries. Normal visualized aortic arch and descending thoracic aorta. Normal visualized thoracic spine. Normal visualized ribs, clavicles, and shoulders. RAD/Chest Insp/Exp 2 View IMPRESSION: Bilateral pigtail-type chest tubes are present which are primarily bibasilar with no substantial remaining pneumothorax on the right or the left. Continued shallow inspiration with bibasilar atelectasis. Endotracheal tube remains ending just above the essie. Enteric tube upturned in the gastric fundus. Electronically Signed: Libertad Butler MD at 21:15 EST , Service support ,
--- NOTE | 2020-08-23 20:40 | RAD_ITS ---
STUDY: X-RAY CHEST REASON FOR EXAM: Male, 79 years old. ett change in placement TECHNIQUE: 1 view 8:43 PM COMPARISON: Prior chest exam of 08/23/2020 at 8:33 PM FINDINGS: Endotracheal tube now 1.5 cm above the essie. Bilateral chest tubes and enteric tube are unchanged. No substantial remaining pneumothorax. Slight residual pneumomediastinum. Inspiration remains poor with bibasilar atelectatic changes. Stable cardiac size. Normal mediastinum and gurpreet. Normal visualized pulmonary arteries. Normal visualized aortic arch and descending thoracic aorta. Normal visualized ribs, clavicles, and shoulders. There is no demonstrated abnormality of the visualized soft tissue structures of the upper abdomen. RAD/Chest 1 View (Portable) IMPRESSION: Endotracheal tube terminates 1.5 cm above the essie. Enteric tube remains in the gastric fundus. No substantial remaining pneumothorax. Minimal remaining pneumomediastinum. Continued bibasilar atelectasis. Electronically Signed: Libertad Butler MD at 21:25 EST , Service support ,
--- NOTE | 2020-08-23 20:52 | OP.PCM_ITS ---
Report of Operation Date of Procedure: 08/23/20 Pre-Operative Diagnosis: bilateral pneumothorax s/p intubation Post-Operative Diagnosis: same Surgery/Procedure Performed:: placement of 14 Fr bilateral chest tubes Type of Anesthesia:: Local Drains: bilateral 14 Fr chest tubes Estimated Blood Loss (mL): minimal Description of Procedure: Indications: 79-year-old male status post intubation had bilateral pneumothorax on CXR. Blood pressure ranged systolically low 80s to low 100s. On chest x-ray patient did have very low lung volumes. Plan to place chest tubes in the second intercostal space bilaterally d/w son, Ten. Description: Bilateral anterior chest prepped and draped in usual sterile fashion with chlorhexidine. 1% lidocaine was used at the second intercostal space bilaterally. Needle was placed superior to the second rib air was able to be easily pulled back guidewire was placed. 14-gauge chest tubes were used bilaterally. Dilator and catheter were placed using the Seldinger technique. The stopcock was hooked up to the catheter into the Pleur-evac to -20 suction. There was initial bubbles of air, which resolved. This procedure was repeated on the other side as well. Tubes were secured using 3-0 silk suture. Tubes were dressed with Vaseline gauze and 4 x 4 and tape. Patient tolerated procedure well. Chest x-ray completed did show i mprovement?resolution of the pneumothorax bilaterally my read. - Complications none
--- NOTE | 2020-08-23 21:00 | PCM.PN.BLA ---
Progress Note Late entry: Called by ICU nurse due to bilateral pneumothorax on chest x-ray after intubation. Did call and discussed this with the son as well he was agreeable for chest tube placement bilaterally. Patient tolerated procedure well. Again called son to let him know that everything went okay and answered questions. Patient son had no further questions this time. STROKE Vital Signs/Narrative: Vital Signs Temp Pulse Resp BP BP Pulse Ox 08/23/20 20:00 105 H 17 95/61 99 08/23/20 19:38 110 H 08/23/20 19:00 105 H 16 87/64 L 99 08/23/20 18:00 98 08/23/20 17:32 114 H 36 H 100 08/23/20 17:21 96.1 F L 121 H 30 H 118/69 97
[2020-08-23] MEDS: Famotidine 200 MG/20 ML MDV 20 MG in 0.9% Normal Saline (Pres. free 8 ML 300 MG IV (22:20)
--- NOTE | 2020-08-23 22:29 | NURSING ---
Previous shift did not scan fentanyl and Propofol before leaving at the end of the day, Dayshift sewer inspector was called and she stated medication was started at 1800. No med titrations were performed due to this RN not being present when medication was started.
--- NOTE | 2020-08-23 22:47 | PCM.PN.BLA ---
Progress Note After the initial critical care time I was contacted by nursing staff because of deterioration in his respiratory status. At around 515 I was notified that his ABG resulted with a pH of 7.18 and PCO2 of 59.5. At this point I discussed the case with both him and his son, and discussed the necessity for intubation. I explained the risks and benefits of the procedure to the son who is his POA and they both would like me to proceed with it. He also at that time made him a full code. The patient was given etomidate and started on propofol. Given the fact that he had a large short neck, and there was an NG tube in place. I elected to proceed with intubation with a glide scope. The vocal cords were visualized and a 7.5 ETT was inserted and was visualized going past the vocal cords. He had good color change and bilateral breath sounds. He did desaturate but recovered very quickly and is maintaining his sats on the ventilator with 5 of PEEP at a rate of 18 and FiO2 of 50%. The ET tube did have to be pulled back to about 22 cm as it did appear to be almost be right mainstem. Also on chest x-ray it does appear that he developed bilateral pneumothoraces. This was communicated with general surgery who came in and placed bilateral chest tubes. STROKE Vital Signs/Narrative: Vital Signs Pulse Resp BP Pulse Ox 08/23/20 22:00 118 H 17 110/65 93 08/23/20 21:00 112 H 17 94/59 L 93 08/23/20 20:50 115 H 18 106/65 97 08/23/20 20:45 116 H 17 89/64 L 98 08/23/20 20:40 116 H 18 92/59 L 97 08/23/20 20:35 114 H 17 96/59 L 95 08/23/20 20:30 112 H 18 90/57 L 94 08/23/20 20:25 111 H 17 96/60 94 08/23/20 20:20 109 H 17 97/61 95 08/23/20 20:15 106 H 18 90/61 96 08/23/20 20:10 104 H 17 90/59 L 97 08/23/20 20:05 105 H 17 80/62 L 95 08/23/20 20:00 110 H 20 H 95/61 95 08/23/20 19:38 110 H 08/23/20 19:25 106 H 17 95 08/23/20 19:00 105 H 16 87/64 L 99 Procedures: 77151 Insert Emergency Airway
[2020-08-24] VITALS (32 sets, daily range): BP systolic 84–129; BP diastolic 40–65; PULSE 110–126; RESP 12–35; TEMP 37.2–37.8; O2SAT 89–96; BMI 35.9
[2020-08-24 03:40] LABS: Absolute Neutrophil Count 6.5 X10^3/uL (2.0-7.7); Basophil# 0.04 X10^3/uL; Basophil% 0.4 % (0-1); Eosinophil# 0.06 X10^3/uL; Eosinophils% 0.6 % (0-5); Hematocrit 30.3 % (40-54); Hemoglobin 9.3 g/dL (13.0-16.5); Lymphocyte % 14.6 % (19-41); Mean Corp Hgb Conc 30.7 g/dL (32-36); Mean Corpuscular Hgb 29.7 pg (27.0-32.0); Mean Corpuscular Volume 96.8 fL (80-94); Mean Platelet Vol. 9.5 fl (6.2-12.0); Monocyte# 1.14 X10^3/uL; Monocyte% 11.9 % (0-10); NRBC Flagged by Analyzer 1.9 % (0-5); Neutrophil # 6.54 X10^3/uL (2.7-7.7); Platelet Count 274 K/mm3 (150-450); RBC Distribution Width CV 14.9 % (11.6-14.6); RBC Distribution Width SD 52.8 fl (35.1-43.9); Red Blood Count 3.13 M/mm3 (4.6-6.2); White Blood Count 9.6 K/mm3 (4.4-11.0)
[2020-08-24 04:11] LABS: Anion Gap 8 (5-15); BUN 68 mg/dL (7-18); BUN/Creat Ratio 22.4 RATIO (10-20); CPK Total, Creatine Kinase 693 U/L (39-308); Calcium,Total 8.1 mg/dL (8.5-10.1); Chloride 114 mmol/L (98-107); Creatinine, Serum 3.03 mg/dL (0.70-1.30); EST Glomerular Filtration Rate 21 mL/min (>60); Est Glom Filt Rate - Afr Amer 26 mL/min (>60); Glucose 139 mg/dL (74-106); Potassium 4.8 mmol/L (3.5-5.1); Sodium Level 145 mmol/L (136-145); Triglycerides 204 mg/dL
[2020-08-24] MEDS: Propofol 10MG/Ml 1,000 MG/100 ML Bottle 6.1 MG CONT INF ×2 (05:20→18:38)
[2020-08-24 06:35] LABS: Allen Test Positive; Base Excess -6 mmol/L (-2 to +2); Bicarbonate 18.1 mmol/L (22-26); Blood Gas Specimen Type ART; FI02 45; Mode AC; O2 Delivery Device Adult Vent; PEEP 5; PO2 59 mmHG (75-100); RR 12; SITE R Radial; SO2 92 % (95-99); Total Carbon Dioxide 19 mmol/L; Vt 450; pCO2 24.8 mmHg (35-45); pH 7.47 (7.35-7.45)
--- NOTE | 2020-08-24 07:39 | PCM.PN.SRG ---
Patient Problems: Active and Suspected Problems (Last Reviewed 08/23/20 @ 03:[address] Raj Méndez MD) Intractable generalized abdominal pain (Acute) Chest pain (Acute) Acute respiratory failure with hypoxia (Acute) Nausea (Acute) Abdominal pain (Acute) Fever (Acute) Subjective: Patient had chest tube placed last night due to bilateral pneumothorax after intubation. Chest x-ray did show resolution of the bilateral pneumothorax. Patient blood pressure has been in the 90s systolically overnight heart rates been in the 110s to 120s - Physical Exam Vitals/I&O's: Vital Signs Temp Pulse Resp BP Pulse Ox 98.9 F 114 H 23 H 88/55 L 94 08/24/20 00:00 08/24/20 06:00 08/24/20 06:00 08/24/20 06:00 08/24/20 06:00 Oxygen Flow Rate (L/min) 6 Oxygen Delivery Method Mechanical Ventilator Weight: 236 lb 5.369 oz Body Mass Index (BMI) 34.2 Intake and Output for Last 24 Hours 08/22/20 08/23/20 08/24/20 23:59 23:59 23:59 Intake Total 3502.5 / 3502.5 2120.50 / 2131.60 88.80 / 88.80 Output Total 1030 / 1030 1075 / 1322 545 / 545 Balance 2472.5 / 2472.5 1045.50 / 809.60 -456.20 / -456.20 General: - - Intubated and sedated HEENT: - - OG and ET tube in place Lungs: Diminished - Bilaterally in the base Cardiovascular: Tachycardic Abdomen: Soft, Distended - Mild to moderate, - - VAC in place, patient is sedated and unable to assess tenderness Neurological: Cranial nerves II-XII grossly intact Psych/Mental Status: - - sedated Microbiology Past 72 Hours 08/20/20 Unknown Wound Drainage - Abdominal Gram Stain - Final 08/20/20 Unknown Wound Drainage - Abdominal Wound Culture - Final No growth aerobically. 08/20/20 Unknown Wound Drainage - Abdominal Anaerobic Culture - Preliminary No growth in 48 hours. Laboratory Results 08/23/20 08:29: Troponin I < 0.015 08/23/20 12:57: POC Glucose 174 H 08/23/20 17:09: Specimen Type ART, Sample Site R Radial, pH 7.18 L*, Bicarbonate Actual 22.3, Total CO2 24, Base Excess -6 L, O2 Saturation 94 L, ABG pCO2 59.5 H, ABG pO2 89, O2 Delivery Device Cannula, Liter Flow 7.0 08/24/20 03:30: WBC 9.6, RBC 3.13 L, Hgb 9.3 L, Hct 30.3 L, MCV 96.8 H, MCH 29.7, MCHC 30.7 L, RDW Std Deviation 52.8 H, RDW Coeff of José Miguel 14.9 H, Plt Count 274, MPV 9.5, Immature Gran % (Auto) 4.500 H, Neut % (Auto) 68.0, Lymph % (Auto) 14.6 L, Orange % (Auto) 11.9 H, Eos % (Auto) 0.6, Baso % (Auto) 0.4, Absolute Neuts (auto) 6.5, Absolute Lymphs (auto) 1.40, Nucleated RBC % 1.9 08/24/20 03:30: Sodium 145, Potassium 4.8, Chloride 114 H, Carbon Dioxide 23.0, Anion Gap 8, BUN 68 H, Creatinine 3.03 H, Estim Creat Clear Calc 18.50, Est GFR (MDRD) Af Amer 26 L, Est GFR (MDRD) Non-Af 21 L, BUN/Creatinine Ratio 22.4 H, Glucose 139 H, Calcium 8.1 L, Total Creatine Kinase 693 H, Triglycerides 204 H 08/24/20 06:31: Specimen Type ART, Sample Site R Radial, pH 7.47 H, Bicarbonate Actual 18.1 L, Total CO2 19, Base Excess -6 L, O2 Saturation 92 L, O2 % 45, ABG pCO2 24.8 L, ABG pO2 59 L, Derrek Test Positive, Respiration Rate 12, O2 Delivery Device Adult Vent, Vent Mode AC, Tidal Volume 450, POC PEEP 5 Current Medications Enoxaparin Sodium (Enoxaparin 40 Mg/0.4 Ml Syringe) 40 mg SC DAILY [facility] Last Admin: 08/23/20 09:03 Dose: 40 mg Documented by: Finasteride (Finasteride 5 Mg Tablet) 5 mg PO QHS [facility] Last Admin: 08/23/20 22:24 Dose: Not Given Documented by: Famotidine 20 mg/ Sodium (Chloride) 10 mls @ 300 mls/hr IV Q12 [facility] Last Infusion: 08/23/20 22:25 Dose: Infused Documented by: Fentanyl Citrate 1,000 mcg/ (Sodium Chloride) 100 mls @ 5 mls/hr CONT INF .Q20H [facility]; Protocol Last Titration: 08/24/20 07:00 Dose: 50 mcg/hr, 5 mls/hr Documented by: Propofol (Diprivan) 1,000 mg in 100 mls @ 6.123 mls/hr CONT INF .Q12H [facility]; Protocol Last Titration: 08/24/20 07:00 Dose: 10 mcg/kg/min, 6.1 mls/hr Documented by: Morphine Sulfate (Morphine 2 Mg/Ml Syringe) 2 - 4 mg IV Q2H PRN PRN PRN Reason: Pain Score 1-10 Last Admin: 08/23/20 09:04 Dose: 4 mg Documented by: Nitroglycerin (Nitroglycerin (Inpatient Use) 0.4 Mg Tab.Subl) 0.4 mg SUBLINGUAL Q5M PRN PRN Reason: CARDIAC/CHEST PAIN Last Admin: 08/23/20 02:12 Dose: 0.4 mg Documented by: Ondansetron HCl (Ondansetron 4 Mg/2 Ml Vial) 4 mg IV Q8H PRN PRN PRN Reason: NAUSEA Sodium Chloride (0.9% Saline Lock 10 Ml Syringe) 10 - 40 ml IV UD PRN PRN Reason: SALINE FLUSH Last Admin: 08/23/20 22:20 Dose: 20 ml Documented by: Tamsulosin HCl (Tamsulosin Hcl 0.4 Mg Capsule) 0.4 mg PO BID@0830,1730 [facility] Last Admin: 08/23/20 17:48 Dose: Not Given Documented by: Medical Necessity - Tobacco Use Smoking Status: Never smoker Tobacco Use: Chew Assessment/Plan All Active Problems (Last Reviewed 08/23/20 @ 03:[address] Raj Méndez MD) Intractable generalized abdominal pain (Acute) Chest pain (Acute) Acute respiratory failure with hypoxia (Acute) COVID-19 (Resolved) Nausea (Acute) Abdominal pain (Acute) Fever (Acute) 79 y/o M s/p sigmoidectomy, excision of subcut. seroma cavity for sigmoid mass POD 4, hypoxia status post intubation, bilateral chest tubes Appreciate hospitalist and ICU help with management. Vent per ICU OG/n.p.o. Acute kidney injury creatinine is back up to 3.03 from 1.9 question patient be able to get more fluids since he is on the vent or possible nephrology consult will discuss with ICU Rita Hughes M.D. Pager: [phone] [facility] [address] [place] [address], [facility], [address] [place] [address] Office: [phone]
--- NOTE | 2020-08-24 08:39 | RAD_ITS ---
STUDY: X-RAY - ABDOMEN/PELVIS REASON FOR EXAM: Male, 79 years old. OG TUBE PLACEMENT TECHNIQUE: Single AP view of the abdomen / pelvis. COMPARISON: Comparison is made with prior study dated 08/23/2020. FINDINGS: The tip of the orogastric tube is in the body of the stomach. The proximal portion is coiled in the region of the fundus of the stomach. A pigtail catheter is seen in the region of the left costophrenic angle. There is less gaseous distention of the stomach at this time. Mild gaseous distention of the colon. RAD/Abdomen Single View (Portable) IMPRESSION: The tip of the orogastric tube is in the distal body of the stomach. Less gaseous distention of the stomach with mild gaseous distention of the colon. Electronically Signed: Merrick Shelton, at 9:31 EST , Service support ,
--- NOTE | 2020-08-24 10:20 | CASEMGMT ---
Social Work SW attended interdisciplinary rounds. Pt now intubated. Prior to change in medical status pt had requested to go to TCU and had been placed on TCU wait list. CASTRO spoke with Diane in TCU and updated on pt status. Pt will remain on TCU list and when pt becomes appropriate for SNF, SW will followup for placement. ORACIO Solomon
[2020-08-24] MEDS: Famotidine 200 MG/20 ML MDV 20 MG in 0.9% Normal Saline (Pres. free 8 ML 300 MG IV (11:12)
[2020-08-24 11:27] LABS: International Normalized Ratio 1.4; Prothrombin Time (Protime)PT. 16.3 SECONDS (11.7-14.9)
--- NOTE | 2020-08-24 11:27 | NT.THERAPY_ITS ---
Nutrition Therapy Report - History Nutrition Services has been consulted to:: Manage nutrient details of diet order, Manage parenteral nutrition Current diet / nutrition support order:: NPO - Anthropometric Measurements Height:: 5 ft 8 in Weight:: 107.2 kg Body Mass Index (BMI):: 35.9 - Relevant Labs Relevant Labs:: RBC 3.13 M/mm3 (4.6-6.2) L 08/24/20 03:30 Hgb 9.3 g/dL (13.0-16.5) L 08/24/20 03:30 Hct 30.3 % (40-54) L 08/24/20 03:30 MCV 96.8 fL (80-94) H 08/24/20 03:30 MCHC 30.7 g/dL (32-36) L 08/24/20 03:30 RDW Std Deviation 52.8 fl (35.1-43.9) H 08/24/20 03:30 RDW Coeff of José Miguel 14.9 % (11.6-14.6) H 08/24/20 03:30 Plt Count 147 K/mm3 (150-450) L 08/22/20 06:10 Immature Gran % (Auto) 4.500 % (0.0-0.9) H 08/24/20 03:30 Neut % (Auto) 81.9 % (47-70) H 08/23/20 02:15 Lymph % (Auto) 14.6 % (19-41) L 08/24/20 03:30 [place] % (Auto) 11.9 % (0-10) H 08/24/20 03:30 Absolute Neuts (auto) 8.1 X10^3/uL (2.0-7.7) H 08/23/20 02:15 Absolute Lymphs (auto) 0.78 X10^3/uL (0.83-4.51) L 08/23/20 02:15 Potassium 5.2 mmol/L (3.5-5.1) H 08/21/20 16:25 Chloride 114 mmol/L (98-107) H 08/24/20 03:30 Carbon Dioxide 18.0 mmol/L (21.0-32.0) L 08/22/20 06:10 BUN 68 mg/dL (7-18) H 08/24/20 03:30 Creatinine 3.03 mg/dL (0.70-1.30) H 08/24/20 03:30 Est GFR (MDRD) Af Amer 26 mL/min (>60) L 08/24/20 03:30 Est GFR (MDRD) Non-Af 21 mL/min (>60) L 08/24/20 03:30 BUN/Creatinine Ratio 22.4 RATIO (10-20) H 08/24/20 03:30 Glucose 139 mg/dL (74-106) H 08/24/20 03:30 Calcium 8.1 mg/dL (8.5-10.1) L 08/24/20 03:30 AST 12 U/L (15-37) L 08/19/20 11:20 Total Creatine Kinase 693 U/L (39-308) H 08/24/20 03:30 Total Protein 5.3 g/dL (6.4-8.2) L 08/21/20 16:25 Albumin 2.0 g/dL (3.2-5.0) L 08/21/20 16:25 Albumin/Globulin Ratio 0.6 RATIO (0.9-2.4) L 08/21/20 16:25 Prealbumin 6.3 mg/dL (20.0-40.0) L 08/22/20 06:10 Triglycerides 204 mg/dL (-199) H 08/24/20 03:30 - Assessment Food / Nutrition-Related History:: Tx to ICU rounds d/t resp. failure. Intubated. Has bilat chest tubes. OGT in place. Continues w/ wound vac to abd. Discussed in ICU rounds. Nephrology consulted d/t worsening renal function. Central line to be placed today. Wt increase of 5.1kg noted since admission, likely d/t fluid status. Has BLE 2+ pitting edema. Has been NPO x 5 days. - Nutrition Intervention Nutrition Prescription:: 10-15 kcal/kg/day to prevent refeeding syndrome (1020- 1530 calories using admit wt of 102.058 kg). - Food / Nutrient Delivery Interventions Summary of nutrition intervention:: Pt w/ significant risk for malnutrition given inadequate oral intake [employer], NPO x 5 days since admission, recent wt loss during COVID-19 illness, large open surgical wound, and resp. failure/mechanical intubation. Consulted by Dr. Bridges to initiate TPN. At significant risk for refeeding syndrome given no PO intake for 5 days and bowel resection. Nutrition support ordered as / adjusted to:: 2L 4.25% AA/10% dextrose solution w/ MVI/electrolytes to provide 1020 calories, 200 g dextrose, 84 g protein. No insulin/famotidine added to TPN per provider order. Will order appropriate labs to monitor for signs/symptoms of refeeding syndrome and adjust recommendations as indicated. Continue daily wts. - MNT Monitoring Further MNT monitoring and evaluation required?: Yes - will continue to manage TPN daily as ordered by provider MNT Follow-up in:: 1-2 days
--- NOTE | 2020-08-24 11:32 | PCM.PN.HOSP ---
Patient Problems: Active and Suspected Problems (Last Reviewed 08/23/20 @ 03:[address] Raj Méndez MD) Intractable generalized abdominal pain (Acute) Chest pain (Acute) Acute respiratory failure with hypoxia (Acute) Nausea (Acute) Abdominal pain (Acute) Fever (Acute) Subjective: Intubated and sedated. Chest tubes are continuing to suction. There is an issue with the NG tube suction last night and that was able to be fixed and he drained over a liter from his stomach today. Vitals/I&O's: Vital Signs Temp Pulse Resp BP Pulse Ox 98.9 F 110 H 23 H 84/45 L 91 08/24/20 00:00 08/24/20 10:00 08/24/20 10:00 08/24/20 09:00 08/24/20 10:00 Oxygen Flow Rate (L/min) 6 Oxygen Delivery Method Mechanical Ventilator Weight: 236 lb 5.369 oz Body Mass Index (BMI) 35.9 Intake and Output for Last 24 Hours 08/22/20 08/23/20 08/24/20 23:59 23:59 23:59 Intake Total 3502.5 / 3502.5 2120.50 / 2131.60 111.00 / 111.00 Output Total 1030 / 1030 1075 / 1322 545 / 545 Balance 2472.5 / 2472.5 1045.50 / 809.60 -434.00 / -434.00 General: - - Intubated and sedated HEENT: Atraumatic, PERRLA, Normocephalic Oral: Moist Mucosa Neck: Supple, No JVD Lungs: Normal air movement, No rhonchi, No wheeze, No rales, Diminished Cardiovascular: Regular Rhythm, Normal S1, Normal S2, No murmurs, Tachycardic Abdomen: Soft, Non Tender, No Hepato-splenomegaly, Distended Extremities: No edema, Capillary Refill Less than 3 Seconds Skin: No rashes, No breakdown, Incision - Wound VAC in place in his midline incision Neurological: - - Intubated and sedated Psych/Mental Status: - - Intubated and sedated Microbiology Past 72 Hours 08/20/20 Unknown Wound Drainage - Abdominal Gram Stain - Final 08/20/20 Unknown Wound Drainage - Abdominal Wound Culture - Final No growth aerobically. 08/20/20 Unknown Wound Drainage - Abdominal Anaerobic Culture - Preliminary No growth in 48 hours. Laboratory Results 08/23/20 12:57: POC Glucose 174 H 08/23/20 17:09: Specimen Type ART, Sample Site R Radial, pH 7.18 L*, Bicarbonate Actual 22.3, Total CO2 24, Base Excess -6 L, O2 Saturation 94 L, ABG pCO2 59.5 H, ABG pO2 89, O2 Delivery Device Cannula, Liter Flow 7.0 08/24/20 03:30: WBC 9.6, RBC 3.13 L, Hgb 9.3 L, Hct 30.3 L, MCV 96.8 H, MCH 29.7, MCHC 30.7 L, RDW Std Deviation 52.8 H, RDW Coeff of José Miguel 14.9 H, Plt Count 274, MPV 9.5, Immature Gran % (Auto) 4.500 H, Neut % (Auto) 68.0, Lymph % (Auto) 14.6 L, [place] % (Auto) 11.9 H, Eos % (Auto) 0.6, Baso % (Auto) 0.4, Absolute Neuts (auto) 6.5, Absolute Lymphs (auto) 1.40, Nucleated RBC % 1.9 08/24/20 03:30: Sodium 145, Potassium 4.8, Chloride 114 H, Carbon Dioxide 23.0, Anion Gap 8, BUN 68 H, Creatinine 3.03 H, Estim Creat Clear Calc 18.50, Est GFR (MDRD) Af Amer 26 L, Est GFR (MDRD) Non-Af 21 L, BUN/Creatinine Ratio 22.4 H, Glucose 139 H, Calcium 8.1 L, Total Creatine Kinase 693 H, Triglycerides 204 H 08/24/20 06:31: Specimen Type ART, Sample Site R Radial, pH 7.47 H, Bicarbonate Actual 18.1 L, Total CO2 19, Base Excess -6 L, O2 Saturation 92 L, O2 % 45, ABG pCO2 24.8 L, ABG pO2 59 L, Derrek Test Positive, Respiration Rate 12, O2 Delivery Device Adult Vent, Vent Mode AC, Tidal Volume 450, POC PEEP 5 08/24/20 11:10: PT 16.3 H, INR 1.4 Current Medications Enoxaparin Sodium (Enoxaparin 30 Mg/0.3 Ml Syringe) 30 mg SC DAILY [facility]AVESH Finasteride (Finasteride 5 Mg Tablet) 5 mg PO QHS [facility] Last Admin: 08/23/20 22:24 Dose: Not Given Documented by: Fentanyl Citrate 1,000 mcg/ (Sodium Chloride) 100 mls @ 5 mls/hr CONT INF .Q20H [facility]; Protocol Last Titration: 08/24/20 09:00 Dose: 50 mcg/hr, 5 mls/hr Documented by: Propofol (Diprivan) 1,000 mg in 100 mls @ 6.123 mls/hr CONT INF .Q12H [facility]; Protocol Last Titration: 08/24/20 09:00 Dose: 10 mcg/kg/min, 6.1 mls/hr Documented by: Famotidine 20 mg/ Sodium (Chloride) 10 mls @ 300 mls/hr IV DAILY [facility] Last Admin: 08/24/20 11:12 Dose: 300 mls/hr Documented by: Nitroglycerin (Nitroglycerin (Inpatient Use) 0.4 Mg Tab.Subl) 0.4 mg SUBLINGUAL Q5M PRN PRN Reason: CARDIAC/CHEST PAIN Last Admin: 08/23/20 02:12 Dose: 0.4 mg Documented by: Ondansetron HCl (Ondansetron 4 Mg/2 Ml Vial) 4 mg IV Q8H PRN PRN PRN Reason: NAUSEA Sodium Chloride (0.9% Saline Lock 10 Ml Syringe) 10 - 40 ml IV UD PRN PRN Reason: SALINE FLUSH Last Admin: 08/23/20 22:20 Dose: 20 ml Documented by: STROKE Vital Signs/Narrative: Vital Signs Pulse Resp BP Pulse Ox 08/24/20 10:00 110 H 23 H 91 08/24/20 09:00 111 H 23 H 84/45 L 89 08/24/20 08:00 113 H 26 H 90/56 L 90 Medical Necessity - Tobacco Use Smoking Status: Never smoker Tobacco Use: Chew Assessment/Plan All Active Problems (Last Reviewed 08/23/20 @ 03:[address] Raj Méndez MD) Intractable generalized abdominal pain (Acute) Chest pain (Acute) Acute respiratory failure with hypoxia (Acute) COVID-19 (Resolved) Nausea (Acute) Abdominal pain (Acute) Fever (Acute) 1. Acute hypoxic respiratory failure secondary to volume overload/bilateral pneumothoraces/sinus tachycardia -His tachycardia is improved after intubation however his blood pressure is marginal, will hold off on any rate control medications -Previous EKGs demonstrated sinus tachycardia. And his troponins were normal -he did receive bilateral chest tubes yesterday with good resolution of his pneumothorax on either side 2. Abdominal pain secondary to a large bowel obstruction from obstructing lesion in the sigmoid colon/acute renal failure -Status post surgical excision August 20, 2020 -He did receive antibiotics prior, during, and after the surgical procedure -Remains afebrile without a leukocytosis -Wound VAC is in place -LEX is prerenal. On August 20, 2020 he was 1.05 and then he increased to 3.03 the next day. -He was given 80 mg of Lasix yesterday without any urine output. His creatinine increased from 1.9 to little over 3. We will consult nephrology to assist with his renal failure. 3. BPH -Stable -Peck is in place. Once stable can resume Proscar and Flomax DVT: Lovenox I had a 20-minute discussion with the family that advanced care planning in terms of prognosis and CODE STATUS. They would like him to be a full code Inpatient E&M: 42793 Subs Hosp L2 Procedures: 97050 Advncd Care Plan 30 Min
--- NOTE | 2020-08-24 12:15 | RAD_ITS ---
STUDY: X-RAY CHEST REASON FOR EXAM: Male, 79 years old. Central line placement TECHNIQUE: Single AP portable view of the chest. COMPARISON: Comparison is made with prior study dated 08/23/2020. FINDINGS: An endotracheal tube is in situ. The tip is at 3 cm proximal to the essie. An orogastric tube is seen with the tip in the distal portion of the body of the stomach. Bilateral chest tubes are seen. A right-sided central jugular line has been placed with the tip in the midportion of the superior vena cava. No significant pneumothorax is seen at this time. Stable mild increased markings at the left lung base suggestive of atelectasis and/or infiltrate. RAD/Chest 1 View (Portable) IMPRESSION: The right central line is seen with the tip in the midportion of the superior vena cava. No significant pneumothorax is seen. Electronically Signed: Merrick Shelton, at 13:03 EST , Service support ,
--- NOTE | 2020-08-24 12:18 | PCM.OPRPT ---
Report of Operation Date of Procedure: 08/24/20 Surgery/Procedure Performed:: Triple-lumen catheter insertion Description of Surgical Findings:: Central line placement procedure note Indication: IV access/hemodynamic instability/vasoactive medications Procedure: A time-out was completed to verify correct patient, indication, medication allergies, procedure, coagulation studies, informed consent signed, and equipment needed. The patient was placed in the supine position for a central line placement to the rt IJ vein. The patients rt neck was prepped using chlorhexidine and a full body sterile drape was applied. 1% lidocaine was used to anesthetize the surrounding skin. A 7fr 16 cm blue guard triple lumen catheter introduced into the internal jugular vein using the modified Seldinger technique with the assistance of ultrasound. The catheter was threaded smoothly over the guidewire, the guidewire was removed easily, nonpulsatile blood returned. All ports were aspirated of air and flushed with sterile saline. The catheter was sutured in place and covered with an occlusive dressing impregnated with chlorhexidine. Post-procedure: The patient tolerated the procedure well. Vital signs remained stable. EBL 3cc. No complications. Chest X Ray ordered to confirm tip placement and the absence of pneumothorax. Procedures: 84365 Insert Non-tunnel CV Cath
--- NOTE | 2020-08-24 13:33 | PCM.PN.INT ---
Subjective: Night events were noted. Patient developed bilateral pneumothoraces following intubation requiring bilateral chest tubes. Patient has remained hemodynamically stable overnight, but blood pressures have been marginal. Oxygenation has not been an issue following extubation. Patient has had some tachycardia. Nursing is reporting decreased urine output. General: - - Intubated and sedated. RASS -2. Good vent synchrony noted. HEENT: Atraumatic, PERRLA, EOMI, Normocephalic, - - NG in place. This was transitioned to an OG later in the day Oral: Dry Mucosa, - - Crowded posterior pharynx Neck: Supple, No JVD, No Nodes, Trachea Midline Lungs: No rhonchi, No wheeze, No rales, Diminished Cardiovascular: Normal S1, Normal S2, No murmurs, No rub noted, No Gallop, Tachycardic Abdomen: Bowel Sounds Present, Soft, Non Tender, Non-Distended, Obese Extremities: No clubbing, No cyanosis, Edema - 1+ lower extremity Skin: - - No change compared to yesterday except for interventions Musculoskeletal: No Tenderness to Palpation of Joints or Extremities Lymphatic: No Cervical, Supraclavicular, or Inguinal Adenopathy Neurological: Cranial nerves II-XII grossly intact, Neuro grossly intact Psych/Mental Status: Flat Affect Vital Signs Temp Pulse Resp BP Pulse Ox 37.8 C H 110 H 25 H 94/50 L 89 08/24/20 12:00 08/24/20 12:00 08/24/20 12:00 08/24/20 12:00 08/24/20 12:00 Oxygen Flow Rate (L/min) 6 Oxygen Delivery Method Mechanical Ventilator Weight: 107.2 kg Body Mass Index (BMI) 35.9 Intake and Output for Last 24 Hours 08/22/20 08/23/20 08/24/20 23:59 23:59 23:59 Intake Total 3502.5 / 3502.5 2120.50 / 2131.60 154.21 / 154.21 Output Total 1030 / 1030 1075 / 1322 1715 / 1715 Balance 2472.5 / 2472.5 1045.50 / 809.60 -1560.79 / -1560.79 Labs (Last 48 Hours) 08/23/20 08/23/20 08/23/20 02:15 02:15 02:15 WBC 9.8 RBC 2.86 L Hgb 8.6 L Hct 27.5 L MCV 96.2 H MCH 30.1 MCHC 31.3 L RDW Std Deviation 51.2 H RDW Coeff of José Miguel 14.5 Plt Count 191 MPV 9.7 Immature Gran % (Auto) 1.900 H Neut % (Auto) 81.9 H Lymph % (Auto) 7.9 L [place] % (Auto) 8.0 Eos % (Auto) 0.1 Baso % (Auto) 0.2 Absolute Neuts (auto) 8.1 H Absolute Lymphs (auto) 0.78 L Nucleated RBC % 0 PT INR Specimen Type Sample Site pH Bicarbonate Actual Total CO2 Base Excess O2 Saturation O2 % ABG pCO2 ABG pO2 Derrek Test Respiration Rate O2 Delivery Device Liter Flow Vent Mode Tidal Volume POC PEEP Sodium 145 Potassium 4.2 Chloride 113 H Carbon Dioxide 22.0 Anion Gap 10 BUN 45 H Creatinine 1.93 H Estim Creat Clear Calc 29.04 Est GFR (MDRD) Af Amer 43 L Est GFR (MDRD) Non-Af 36 L BUN/Creatinine Ratio 23.3 H Glucose 149 H Calcium 7.8 L Magnesium 2.1 Total Creatine Kinase Troponin I < 0.015 Triglycerides TSH POC Glucose 08/23/20 08/23/20 08/23/20 05:44 08:29 12:57 WBC RBC Hgb Hct MCV MCH MCHC RDW Std Deviation RDW Coeff of José Miguel Plt Count MPV Immature Gran % (Auto) Neut % (Auto) Lymph % (Auto) [place] % (Auto) Eos % (Auto) Baso % (Auto) Absolute Neuts (auto) Absolute Lymphs (auto) Nucleated RBC % PT INR Specimen Type Sample Site pH Bicarbonate Actual Total CO2 Base Excess O2 Saturation O2 % ABG pCO2 ABG pO2 Derrek Test Respiration Rate O2 Delivery Device Liter Flow Vent Mode Tidal Volume POC PEEP Sodium Potassium Chloride Carbon Dioxide Anion Gap BUN Creatinine Estim Creat Clear Calc Est GFR (MDRD) Af Amer Est GFR (MDRD) Non-Af BUN/Creatinine Ratio Glucose Calcium Magnesium Total Creatine Kinase Troponin I < 0.015 < 0.015 Triglycerides TSH 2.23 POC Glucose 174 H 08/23/20 08/24/20 08/24/20 17:09 03:30 03:30 WBC 9.6 RBC 3.13 L Hgb 9.3 L Hct 30.3 L MCV 96.8 H MCH 29.7 MCHC 30.7 L RDW Std Deviation 52.8 H RDW Coeff of José Miguel 14.9 H Plt Count 274 MPV 9.5 Immature Gran % (Auto) 4.500 H Neut % (Auto) 68.0 Lymph % (Auto) 14.6 L [place] % (Auto) 11.9 H Eos % (Auto) 0.6 Baso % (Auto) 0.4 Absolute Neuts (auto) 6.5 Absolute Lymphs (auto) 1.40 Nucleated RBC % 1.9 PT INR Specimen Type ART Sample Site R Radial pH 7.18 L* Bicarbonate Actual 22.3 Total CO2 24 Base Excess -6 L O2 Saturation 94 L O2 % ABG pCO2 59.5 H ABG pO2 89 Derrek Test Respiration Rate O2 Delivery Device Cannula Liter Flow 7.0 Vent Mode Tidal Volume POC PEEP Sodium 145 Potassium 4.8 Chloride 114 H Carbon Dioxide 23.0 Anion Gap 8 BUN 68 H Creatinine 3.03 H Estim Creat Clear Calc 18.50 Est GFR (MDRD) Af Amer 26 L Est GFR (MDRD) Non-Af 21 L BUN/Creatinine Ratio 22.4 H Glucose 139 H Calcium 8.1 L Magnesium Total Creatine Kinase 693 H Troponin I Triglycerides 204 H TSH POC Glucose 08/24/20 08/24/20 06:31 11:10 WBC RBC Hgb Hct MCV MCH MCHC RDW Std Deviation RDW Coeff of José Miguel Plt Count MPV Immature Gran % (Auto) Neut % (Auto) Lymph % (Auto) [place] % (Auto) Eos % (Auto) Baso % (Auto) Absolute Neuts (auto) Absolute Lymphs (auto) Nucleated RBC % PT 16.3 H INR 1.4 Specimen Type ART Sample Site R Radial pH 7.47 H Bicarbonate Actual 18.1 L Total CO2 19 Base Excess -6 L O2 Saturation 92 L O2 % 45 ABG pCO2 24.8 L ABG pO2 59 L Derrek Test Positive Respiration Rate 12 O2 Delivery Device Adult Vent Liter Flow Vent Mode AC Tidal Volume 450 POC PEEP 5 Sodium Potassium Chloride Carbon Dioxide Anion Gap BUN Creatinine Estim Creat Clear Calc Est GFR (MDRD) Af Amer Est GFR (MDRD) Non-Af BUN/Creatinine Ratio Glucose Calcium Magnesium Total Creatine Kinase Troponin I Triglycerides TSH POC Glucose Microbiology 08/20/20 Unknown Wound Drainage - Abdominal Gram Stain - Final 08/20/20 Unknown Wound Drainage - Abdominal Wound Culture - Final No growth aerobically. 08/20/20 Unknown Wound Drainage - Abdominal Anaerobic Culture - Preliminary No growth in 48 hours. Clinical Impression(s) from Imaging Studies Chest X-Ray 08/23/20 14:21 IMPRESSION: Underexpansion of the lungs with findings suggesting left basilar infiltration and/or atelectasis. Gaseous distention of the stomach and colon. Electronically Signed: Merrick Nikita, at 15:32 EST , Service support , KUB X-Ray 08/23/20 15:30 IMPRESSION: The tip of the nasogastric tube is in the fundal portion of the stomach. Gaseous distention of the stomach and colon. Electronically Signed: Merrick Nikita, at 15:48 EST , Service support , Chest X-Ray 08/23/20 18:12 IMPRESSION: Endotracheal tube terminates immediately above the essie during a very shallow inspiration. Bilateral pneumothoraces. The left pneumothorax measures 2.6 cm from the apical pleura to the parietal pleura. The right pneumothorax slightly smaller. Both have indeterminant anterior and basilar components. Atelectatic lung changes. Stable cardiomediastinal silhouette. Enteric tube extends well below the gastroesophageal junction into an air-filled gastric fundus. Electronically Signed: Libertad Butler MD at 19:09 EST , Service support , ADDENDUM: 08/23/20 193 IMPRESSION: Endotracheal tube terminates immediately above the essie during a very shallow inspiration. Bilateral pneumothoraces. The left pneumothorax measures 2.6 cm from the apical pleura to the parietal pleura. The right pneumothorax slightly smaller. Both have indeterminant anterior and basilar components. Atelectatic lung changes. Stable cardiomediastinal silhouette. Enteric tube extends well below the gastroesophageal junction into an air-filled gastric fundus. N.B. : The above information has been verbally conveyed by Libertad Butler MD to Vasquez Polo RN, on 08/23/2020 19:24:07 (ET). Electronically Signed: Libertad Butler MD at 19:09 EST , Service support , Chest X-Ray 08/23/20 19:40 IMPRESSION: No substantial changes from prior exam. Bilateral pneumothoraces are similar to the prior exam during a very shallow inspiration with bibasilar atelectasis. Stable cardiac size. Endotracheal tube remains ending just above the essie. Enteric tube upturned in the gastric fundus. Electronically Signed: Libertad Butler MD at 20:28 EST , Service support , Chest X-Ray 08/23/20 20:30 IMPRESSION: Bilateral pigtail-type chest tubes are present which are primarily bibasilar with no substantial remaining pneumothorax on the right or the left. Continued shallow inspiration with bibasilar atelectasis. Endotracheal tube remains ending just above the essie. Enteric tube upturned in the gastric fundus. Electronically Signed: Libertad Butler MD at 21:15 EST , Service support , Chest X-Ray 08/23/20 20:40 IMPRESSION: Endotracheal tube terminates 1.5 cm above the essie. Enteric tube remains in the gastric fundus. No substantial remaining pneumothorax. Minimal remaining pneumomediastinum. Continued bibasilar atelectasis. Electronically Signed: Libertad Butler MD at 21:25 EST , Service support , KUB X-Ray 08/24/20 08:39 IMPRESSION: The tip of the orogastric tube is in the distal body of the stomach. Less gaseous distention of the stomach with mild gaseous distention of the colon. Electronically Signed: Merrick Shelton, at 9:31 EST , Service support , Chest X-Ray 08/24/20 12:15 IMPRESSION: The right central line is seen with the tip in the midportion of the superior vena cava. No significant pneumothorax is seen. Electronically Signed: Merrick Shelton, at 13:03 EST , Service support , Medical Necessity - Tobacco Use Smoking Status: Never smoker Tobacco Use: Chew Assessment/Plan All Active Problems (Last Reviewed 08/23/20 @ 03:[address] Raj Méndez MD) Intractable generalized abdominal pain (Acute) Chest pain (Acute) Acute respiratory failure with hypoxia (Acute) COVID-19 (Resolved) Nausea (Acute) Abdominal pain (Acute) Fever (Acute) RECOMMENDATIONS: 1. Spontaneous awakening and breathing trials per protocol 2. Transition from NG to OG 3. Okay to continue with current vent settings, weaning oxygen as tolerated 4. Consult nephrology for acute kidney injury 5. Initiate tube feeds once okay with surgery. Consider TPN 6. Attempt abdominal decompression IMPRESSIONS: 1. Acute hypoxic respiratory failure Exact etiology is unclear at this time. Patient is requiring significant increase in FiO2 to maintain saturations. Patient has been on IV fluids, so congestive heart failure would be a consideration. Patient noted to have hypercarbia on repeat ABG following gastric secretion removal. This led to intubation. Patient now with bilateral pneumothoraces requiring chest tube. We will continue with mechanical ventilation. Anticipate liberation from the ventilator prior to any removal of chest tubes. 2. Large bowel obstruction secondary to sigmoid colon diverticulosis postop day #4 Surgical site appears to be doing well. Wound VAC is in place. Bladder pressures were within normal limits earlier today. 3. Acute kidney injury Consult nephrology. Patient appears to be improving on current regimen. However, given respiratory issues, agree with discontinuation of IV fluids. We will continue to monitor. Patient may have an element of obstruction associated with bowel gas. Cannot exclude the need for dialysis in the next 24 to 48 hours. 4. Sinus tachycardia Unclear etiology at this time. Would hold off on the Cardizem drip for now. Patient could receive low-dose beta-zarina, but exact etiology of tachycardia is unclear at this time. This may be secondary to abdominal distention and respiratory distress and may resolve spontaneously with addressing of the underlying issue. Echocardiogram was relatively unremarkable. TIME: 35 minutes critical care time spent addressing patient's acute hypoxic respiratory failure, large bowel obstruction, acute kidney injury, sinus tachycardia, review of all data and collaboration with care team (10 AM to 11:30 AM) [id number]: [id number] Critical care first hour
--- NOTE | 2020-08-24 13:42 | PCM.CONS.R ---
Problem List (1) LEX (acute kidney injury) Status: Acute Consultation - Renal 08/24/20 PCP/ Referring MD: Requesting physician: [] Primary care physician: Dr. Sharlene Leslie MD Reason for Consultation:: LEX - History of Present Illness History of Present Illness: The patient is a 79 year old M who is admitted to the hospital last with with complaints of abdominal pain. CT of the abdomen showed bowel obstruction, colon mass, abdominal wall seroma. He went to the OR about 4 days ago for sigmoid resection, anastomosis, seroma resection. Postoperative course complicated by respiratory failure requiring intubation. Immediately after intubation he developed pneumothorax for which a chest tube was placed. Developed intermittent tachycardia for which she was initially given beta-blockers followed by Cardizem. Blood pressure is currently on the lower side with systolic around 80-90. With respect to kidney function, his creatinine was around 1.09 on the sixth of this month increased to 3 today He did get a Lasix challenge yesterday evening and has not responded much Temperatures around 100.[address] abdomen on admission does not show any hydronephrosis. Did not have any contrast in the last 48 hours Medication list reviewed no nephrotoxic agents Currently has a Peck catheter, does not have much urine output - Allergies Allergies: Allergies Penicillins Allergy (Verified 08/19/20 10:09) Rash promethazine HCl [From Phenergan] Adverse Reaction (Verified 08/19/20 10:09) Unknown SEVERE CONFUSION, STROKE LIKE SYMPTOMS - Current Medications Current Medications: Current Medications Enoxaparin Sodium (Enoxaparin 30 Mg/0.3 Ml Syringe) 30 mg SC DAILY [facility] Finasteride (Finasteride 5 Mg Tablet) 5 mg PO QHS [facility] Last Admin: 08/23/20 22:24 Dose: Not Given Documented by: Fentanyl Citrate 1,000 mcg/ (Sodium Chloride) 100 mls @ 5 mls/hr CONT INF .Q20H [facility]; Protocol Last Titration: 08/24/20 12:00 Dose: 50 mcg/hr, 5 mls/hr Documented by: Propofol (Diprivan) 1,000 mg in 100 mls @ 6.123 mls/hr CONT INF .Q12H [facility]; Protocol Last Titration: 08/24/20 12:00 Dose: 10 mcg/kg/min, 6.1 mls/hr Documented by: Famotidine 20 mg/ Sodium (Chloride) 10 mls @ 300 mls/hr IV DAILY [facility] Last Infusion: 08/24/20 11:34 Dose: Infused Documented by: Norepinephrine Bitartrate 8 mg (/ Sodium Chloride) 250 mls @ 9.375 mls/hr CONT INF .[id number] [facility]; Protocol Nitroglycerin (Nitroglycerin (Inpatient Use) 0.4 Mg Tab.Subl) 0.4 mg SUBLINGUAL Q5M PRN PRN Reason: CARDIAC/CHEST PAIN Last Admin: 08/23/20 02:12 Dose: 0.4 mg Documented by: Ondansetron HCl (Ondansetron 4 Mg/2 Ml Vial) 4 mg IV Q8H PRN PRN PRN Reason: NAUSEA Sodium Chloride (0.9% Saline Lock 10 Ml Syringe) 10 - 40 ml IV UD PRN PRN Reason: SALINE FLUSH Last Admin: 08/23/20 22:20 Dose: 20 ml Documented by: - Past Medical History Past Medical History (Chronic Problems): Chronic Problems (Last Reviewed 08/23/20 @ 03:[address] Raj Méndez MD) Personal history of prostate cancer (Chronic) Hx of tonsillectomy (Chronic) Left inguinal hernia (Chronic) Left inguinal pain (Chronic) - Past Surgical History Surgical History: - - vasectemy, trauma injury to lower abd via a tailgate of a truck 5 years ao - Social History Smoking Status: Never smoker - Family History Maternal Family History: Family History (Last Reviewed 08/23/20 @ 04:[address] Raj Méndez MD) Father Heart disease Brother Prostate cancer Son Diabetes History Items: - - arthritis Paternal Family History: Family History (Last Reviewed 08/23/20 @ 04:[address] Raj Méndez MD) Father Heart disease Brother Prostate cancer Son Diabetes History Items: - - father young of mi Review of Systems Unable to obtain accurate/complete ROS d/t: due to intubated status Patient Problems: Active and Suspected Problems (Last Reviewed 08/23/20 @ 03:[address] Raj Méndez MD) Intractable generalized abdominal pain (Acute) Chest pain (Acute) Acute respiratory failure with hypoxia (Acute) LEX (acute kidney injury) (Acute) Nausea (Acute) Abdominal pain (Acute) Fever (Acute) - Physical Exam Vitals/I&O's: Vital Signs Temp Pulse Resp BP Pulse Ox 100.1 F H 110 H 25 H 94/50 L 89 08/24/20 12:00 08/24/20 12:00 08/24/20 12:00 08/24/20 12:00 08/24/20 12:00 Oxygen Flow Rate (L/min) 6 Oxygen Delivery Method Mechanical Ventilator Weight: 107.2 kg Body Mass Index (BMI) 35.9 Intake and Output for Last 24 Hours 08/22/20 08/23/20 08/24/20 23:59 23:59 23:59 Intake Total 3502.5 / 3502.5 2120.50 / 2131.60 154.21 / 154.21 Output Total 1030 / 1030 1075 / 1322 1715 / 1715 Balance 2472.5 / 2472.5 1045.50 / 809.60 -1560.79 / -1560.79 HEENT: Atraumatic Neck: Supple Lungs: Normal air movement Cardiovascular: Tachycardic Abdomen: Bowel Sounds Not Present Extremities: No cyanosis, Edema Skin: No rashes Musculoskeletal: No Muscle Wasting Microbiology Past 72 Hours 08/20/20 Unknown Wound Drainage - Abdominal Gram Stain - Final 08/20/20 Unknown Wound Drainage - Abdominal Wound Culture - Final No growth aerobically. 08/20/20 Unknown Wound Drainage - Abdominal Anaerobic Culture - Preliminary No growth in 48 hours. Laboratory Results 08/23/20 17:09: Specimen Type ART, Sample Site R Radial, pH 7.18 L*, Bicarbonate Actual 22.3, Total CO2 24, Base Excess -6 L, O2 Saturation 94 L, ABG pCO2 59.5 H, ABG pO2 89, O2 Delivery Device Cannula, Liter Flow 7.0 08/24/20 03:30: WBC 9.6, RBC 3.13 L, Hgb 9.3 L, Hct 30.3 L, MCV 96.8 H, MCH 29.7, MCHC 30.7 L, RDW Std Deviation 52.8 H, RDW Coeff of José Miguel 14.9 H, Plt Count 274, MPV 9.5, Immature Gran % (Auto) 4.500 H, Neut % (Auto) 68.0, Lymph % (Auto) 14.6 L, Donley % (Auto) 11.9 H, Eos % (Auto) 0.6, Baso % (Auto) 0.4, Absolute Neuts (auto) 6.5, Absolute Lymphs (auto) 1.40, Nucleated RBC % 1.9 08/24/20 03:30: Sodium 145, Potassium 4.8, Chloride 114 H, Carbon Dioxide 23.0, Anion Gap 8, BUN 68 H, Creatinine 3.03 H, Estim Creat Clear Calc 18.50, Est GFR (MDRD) Af Amer 26 L, Est GFR (MDRD) Non-Af 21 L, BUN/Creatinine Ratio 22.4 H, Glucose 139 H, Calcium 8.1 L, Total Creatine Kinase 693 H, Triglycerides 204 H 08/24/20 06:31: Specimen Type ART, Sample Site R Radial, pH 7.47 H, Bicarbonate Actual 18.1 L, Total CO2 19, Base Excess -6 L, O2 Saturation 92 L, O2 % 45, ABG pCO2 24.8 L, ABG pO2 59 L, Derrek Test Positive, Respiration Rate 12, O2 Delivery Device Adult Vent, Vent Mode AC, Tidal Volume 450, POC PEEP 5 08/24/20 11:10: PT 16.3 H, INR 1.4 Current Medications Enoxaparin Sodium (Enoxaparin 30 Mg/0.3 Ml Syringe) 30 mg SC DAILY [facility] Finasteride (Finasteride 5 Mg Tablet) 5 mg PO QHS [facility] Last Admin: 08/23/20 22:24 Dose: Not Given Documented by: Fentanyl Citrate 1,000 mcg/ (Sodium Chloride) 100 mls @ 5 mls/hr CONT INF .Q20H [facility]; Protocol Last Titration: 08/24/20 12:00 Dose: 50 mcg/hr, 5 mls/hr Documented by: Propofol (Diprivan) 1,000 mg in 100 mls @ 6.123 mls/hr CONT INF .Q12H [facility]; Protocol Last Titration: 08/24/20 12:00 Dose: 10 mcg/kg/min, 6.1 mls/hr Documented by: Famotidine 20 mg/ Sodium (Chloride) 10 mls @ 300 mls/hr IV DAILY [facility] Last Infusion: 08/24/20 11:34 Dose: Infused Documented by: Norepinephrine Bitartrate 8 mg (/ Sodium Chloride) 250 mls @ 9.375 mls/hr CONT INF .[id number] [facility]; Protocol Nitroglycerin (Nitroglycerin (Inpatient Use) 0.4 Mg Tab.Subl) 0.4 mg SUBLINGUAL Q5M PRN PRN Reason: CARDIAC/CHEST PAIN Last Admin: 08/23/20 02:12 Dose: 0.4 mg Documented by: Ondansetron HCl (Ondansetron 4 Mg/2 Ml Vial) 4 mg IV Q8H PRN PRN PRN Reason: NAUSEA Sodium Chloride (0.9% Saline Lock 10 Ml Syringe) 10 - 40 ml IV UD PRN PRN Reason: SALINE FLUSH Last Admin: 08/23/20 22:20 Dose: 20 ml Documented by: Assessment/Plan All Active Problems (Last Reviewed 08/23/20 @ 03:[address] Raj Méndez MD) Intractable generalized abdominal pain (Acute) Chest pain (Acute) Acute respiratory failure with hypoxia (Acute) LEX (acute kidney injury) (Acute) COVID-19 (Resolved) Nausea (Acute) Abdominal pain (Acute) Fever (Acute) Acute renal failure. Sustained acute renal failure within the last couple of days. Urine analysis looks fairly benign CT abdomen on admission does not show any hydronephrosis He has had a Peck catheter since the surgery, less likely obstructive nephropathy Most likely sustained ATN in the setting of events over the last 1 to 2 days Clinically appears edematous Chest x-ray reviewed Electrolytes are acceptable Continue supportive treatment for today. If no significant turnaround within the next 1 or 2 days he may need dialysis on a temporary basis
[2020-08-24] MEDS: Enoxaparin 30 MG/0.3 ML Syringe SC (14:19)
--- NOTE | 2020-08-24 14:47 | PCM.PN.BLA ---
Progress Note Patient did get triple-lumen catheter placed for IV access. Heart rates in the low teens occasionally 120s, blood pressure mostly systolically in the 90s occasionally 80s occasionally low 100s.Discussed Dr. Bridges as well as Dr. Herrera we will plan to start TPN as this would also give him some extra fluid/nutrition, he does have a positive balance; however blood pressure is still on the low side and I believe this extra fluid is mostly third spacing due to his poor nutritional status with a prealbumin of 6.3. His respiratory status has been stable on the vent. Patient's bilateral chest tubes have no air leak and remain to -20 suction. Patient's OG is to low intermittent suction did initially put out 800 this morning we will continue to suction until he has bowel function which should be obvious with large amount of flatus according to x-ray. Did review vitals/plan with the patient's son Ten over the phone. Ten had no further questions at this time. Rita Hughes M.D. Pager: [phone] [facility] [address] [place] [address], [facility], [address] [place] [address] Office: [phone] STROKE Vital Signs/Narrative: Vital Signs Temp Pulse Resp BP BP Pulse Ox 08/24/20 14:15 124 H 101/54 L 08/24/20 14:00 124 H 25 H 95/42 L 93 08/24/20 13:45 113 H 26 H 86/44 L 92 08/24/20 13:00 110 H 24 H 86/48 L 93 08/24/20 12:00 100.1 F H 110 H 25 H 94/50 L 89 08/24/20 11:00 111 H 25 H 88/40 L 90
--- NOTE | 2020-08-24 15:05 | CHAPLAIN ---
Type of Pastoral Visit ___ Initial Visit _x__ Follow-up Visit ___ On-call Visit ___ General Patient Visit ___ Spiritual Assessment ___ Family Conference ___ Bereavement ___ Rapid Response ___ Code Blue ___ Other (describe below) Pastoral Care Referral From _x__ Patient ___ Family ___ Nurse ___ Physician ___ Scientific Associate ___ Card Fixer ___ Other (describe below) Sacrament/Intervention ___ Active listening ___ Anointing ___ Voodoo ___ Bereavement ___ Communion ___ Madyson exploration ___ ___ Life review _x__ Prayer ___ Reconciliation ___ Sacrament of Sick _x__ Supportive presence ___ Wedding ___ Other (describe below) Pastoral Comments patient is now intubated; no family is present; RN is available and gives update on pt; stood at doorway and offered prayer for patient
[2020-08-24 18:41] LABS: Bedside Glucose 167 mg/dL (70-110)
[2020-08-24] MEDS: Albumin Human 25% (100 mL) 25 GM/100 ML BAG IV (22:00)
[2020-08-25] VITALS (32 sets, daily range): BP systolic 99–132; BP diastolic 48–74; PULSE 95–118; RESP 12–30; TEMP 36.7–39.4; O2SAT 7–99
[2020-08-25 04:47] LABS: Hematocrit 22.7 % (40-54); Hemoglobin 7.1 g/dL (13.0-16.5); Mean Corp Hgb Conc 31.3 g/dL (32-36); Mean Corpuscular Hgb 30.9 pg (27.0-32.0); Mean Corpuscular Volume 98.7 fL (80-94); Mean Platelet Vol. 9.4 fl (6.2-12.0); POSITIVE COUNT YES; POSITIVE MORPHOLOGY YES; Platelet Count 246 K/mm3 (150-450); RBC Distribution Width CV 15.7 % (11.6-14.6); RBC Distribution Width SD 56.3 fl (35.1-43.9); White Blood Count 12.4 K/mm3 (4.4-11.0)
[2020-08-25 04:51] LABS: Differential Indicated MANUAL DIFF
[2020-08-25 05:07] LABS: ALB/GLOB Ratio 0.6 RATIO (0.9-2.4); AST(SGOT) 473 U/L (15-37); Alanine Aminotransfer ALT/SGPT 322 U/L (16-61); Albumin, Serum 1.8 g/dL (3.2-5.0); Alkaline Phosphatase 45 U/L (45-117); Anion Gap 8 (5-15); BUN 101 mg/dL (7-18); BUN/Creat Ratio 20.8 RATIO (10-20); Calcium,Total 7.2 mg/dL (8.5-10.1); Chloride 115 mmol/L (98-107); Creatinine, Serum 4.86 mg/dL (0.70-1.30); EST Glomerular Filtration Rate 12 mL/min (>60); Est Glom Filt Rate - Afr Amer 15 mL/min (>60); Estimated Creatinine Clearance 11.53 ml/min; Globulin 3.1 g/dL (2.2-4.2); Glucose 144 mg/dL (74-106); Magnesium 2.8 mg/dL (1.6-2.6); Phosphorus 3.5 mg/dL (2.5-4.9); Potassium 4.5 mmol/L (3.5-5.1); Protein, Total 4.9 g/dL (6.4-8.2); Sodium Level 146 mmol/L (136-145)
[2020-08-25 05:18] LABS: Total Cells Counted 100 (MANUAL DIFF)
[2020-08-25 05:24] LABS: Neutrophil-Segmented 68 % (47-70)
[2020-08-25 05:25] LABS: Lymphocyte 21 % (19-41); Metamyelocyte 1 % (0-1); Neutrophil-Band 3 % (0-5); Nucleated Red Bld Cells,Manual 2 % (0-5); Platelet Estimate ADEQUATE (ADEQ); Toxic Granulation 1+
[2020-08-25 05:28] LABS: Anisocytosis 1+; Macrocytosis RARE; Microcytosis RARE
[2020-08-25 05:29] LABS: Absolute Lymphocyte Count 2.61 X10^3/uL (0.83-4.51); Absolute Neutrophil Count 8.8 X10^3/uL (2.0-7.7); Lymphocyte # 2.61 X10^3/ul (4.0); Neutrophil # 8.82 X10^3/uL (2.7-7.7)
[2020-08-25 05:30] LABS: Monocyte 4 % (0-10); Myelocyte 3 (0-0)
--- NOTE | 2020-08-25 07:55 | PCM.PN.REN ---
Patient Problems: Active and Suspected Problems (Last Reviewed 08/23/20 @ 03:[address] Raj Méndez MD) Intractable generalized abdominal pain (Acute) Chest pain (Acute) Acute respiratory failure with hypoxia (Acute) LEX (acute kidney injury) (Acute) Nausea (Acute) Abdominal pain (Acute) Fever (Acute) Subjective: remains intubated - Physical Exam Vitals/I&O's: Vital Signs Temp Pulse Resp BP Pulse Ox 99 F 106 H 22 H 111/53 L 92 08/25/20 00:00 08/25/20 05:28 08/25/20 05:28 08/25/20 00:00 08/25/20 05:28 Oxygen Flow Rate (L/min) 6 Oxygen Delivery Method Mechanical Ventilator Weight: 108.4 kg Body Mass Index (BMI) 35.9 Intake and Output for Last 24 Hours 08/23/20 08/24/20 08/25/20 23:59 23:59 23:59 Intake Total 2120.50 / 2131.60 444.66 / 464.66 40 / 40 Output Total 1075 / 1322 190 / 1975 325 / 325 Balance 1045.50 / 809.60 -1455.34 / -1510.34 -285 / -285 HEENT: Atraumatic, PERRLA, EOMI, Normocephalic Neck: Supple, No JVD, Negative Carotid Bruits Lungs: Clear to auscultation, Normal air movement Cardiovascular: Regular rate, No murmurs Abdomen: Bowel Sounds Present, Soft, Non Tender Extremities: Capillary Refill Less than 3 Seconds, Edema Skin: No rashes, No breakdown Musculoskeletal: No Tenderness to Palpation of Joints or Extremities Microbiology Past 72 Hours 08/20/20 Unknown Wound Drainage - Abdominal Gram Stain - Final 08/20/20 Unknown Wound Drainage - Abdominal Wound Culture - Final No growth aerobically. 08/20/20 Unknown Wound Drainage - Abdominal Anaerobic Culture - Preliminary No growth in 48 hours. Laboratory Results 08/24/20 11:10: PT 16.3 H, INR 1.4 08/24/20 18:36: POC Glucose 167 H 08/25/20 04:45: WBC 12.4 H, RBC 2.30 L, Hgb 7.1 L, Hct 22.7 L, MCV 98.7 H, MCH 30.9, MCHC 31.3 L, RDW Std Deviation 56.3 H, RDW Coeff of José Miguel 15.7 H, Plt Count 246, MPV 9.4, Neut % (Auto) Not Reportable, Absolute Neuts (auto) 8.8 H, Absolute Lymphs (auto) 2.61, Total Counted 100, Neutrophils % (Manual) 68, Band Neutrophils % 3, Lymphocytes % (Manual) 21, Monocytes % (Manual) 4, Metamyelocytes % 1, Myelocytes % 3 H, Nucleated RBCs/100 WBC 2, Diff Path Review May foll, Toxic Granulation 1+, Platelet Estimate ADEQUATE, Anisocytosis 1+, Microcytosis RARE, Macrocytosis RARE 08/25/20 04:45: Sodium 146 H, Potassium 4.5, Chloride 115 H, Carbon Dioxide 23.0, Anion Gap 8, BUN 101 H*, Creatinine 4.86 H, Estim Creat Clear Calc 11.53, Est GFR (MDRD) Af Amer 15 L, Est GFR (MDRD) Non-Af 12 L, BUN/Creatinine Ratio 20.8 H, Glucose 144 H, Calcium 7.2 L, Phosphorus 3.5, Magnesium 2.8 H, Total Bilirubin 0.60, AST 473 H, ALT 322 H, Alkaline Phosphatase 45, Total Protein 4.9 L, Albumin 1.8 L, Globulin 3.1, Albumin/Globulin Ratio 0.6 L Current Medications Enoxaparin Sodium (Enoxaparin 30 Mg/0.3 Ml Syringe) 30 mg SC DAILY [facility] Last Admin: 08/24/20 14:19 Dose: 30 mg Documented by: Finasteride (Finasteride 5 Mg Tablet) 5 mg PO QHS [facility] Last Admin: 08/24/20 22:32 Dose: Not Given Documented by: Fentanyl Citrate 1,000 mcg/ (Sodium Chloride) 100 mls @ 5 mls/hr CONT INF .Q20H [facility]; Protocol Last Titration: 08/25/20 04:00 Dose: 50 mcg/hr, 5 mls/hr Documented by: Propofol (Diprivan) 1,000 mg in 100 mls @ 6.123 mls/hr CONT INF .Q12H [facility]; Protocol Last Titration: 08/24/20 19:00 Dose: 10 mcg/kg/min, 6.1 mls/hr Documented by: Norepinephrine Bitartrate 8 mg (/ Sodium Chloride) 250 mls @ 9.375 mls/hr CONT INF .[id number] [facility]; Protocol Last Titration: 08/24/20 22:00 Dose: 4 mcg/min, 7.5 mls/hr Documented by: Multivitamins 10 ml/ Chromium/Copper/Manganese/Seleni/Zn 1 ml/ Folic Acid 1 mg/ Amino Acids/Electrolytes/Dextrose 2,011 mls @ 84 mls/hr IV .[id number] [facility] Stop: 08/25/20 15:48 Last Infusion: 08/24/20 17:00 Dose: 84 mls/hr Documented by: Pantoprazole Sodium 40 mg/ (Sodium Chloride) 110 mls @ 330 mls/hr IV Q12 [facility] Nitroglycerin (Nitroglycerin (Inpatient Use) 0.4 Mg Tab.Subl) 0.4 mg SUBLINGUAL Q5M PRN PRN Reason: CARDIAC/CHEST PAIN Last Admin: 08/23/20 02:12 Dose: 0.4 mg Documented by: Ondansetron HCl (Ondansetron 4 Mg/2 Ml Vial) 4 mg IV Q8H PRN PRN PRN Reason: NAUSEA Sodium Chloride (0.9% Saline Lock 10 Ml Syringe) 10 - 40 ml IV UD PRN PRN Reason: SALINE FLUSH Last Admin: 08/23/20 22:20 Dose: 20 ml Documented by: Medical Necessity - Tobacco Use Smoking Status: Never smoker Tobacco Use: Chew Assessment/Plan All Active Problems (Last Reviewed 08/23/20 @ 03:[address] Raj Méndez MD) Intractable generalized abdominal pain (Acute) Chest pain (Acute) Acute respiratory failure with hypoxia (Acute) LEX (acute kidney injury) (Acute) COVID-19 (Resolved) Nausea (Acute) Abdominal pain (Acute) Fever (Acute) Acute renal failure. Sustained acute renal failure in house. Urine analysis looked fairly benign CT abdomen on admission does not show any hydronephrosis He has had a Peck catheter since the surgery, less likely obstructive nephropathy Most likely sustained ATN in the setting of events over the last 2-3 days Failure of Lasix trial Overall about 16 L positive now Appears erythematous Will likely need renal replacement therapy today Discussed with Dr. Bridges
--- NOTE | 2020-08-25 08:09 | PN.SURG_ITS ---
Patient Problems: Active and Suspected Problems (Last Reviewed 08/23/20 @ 03:[address] Raj Méndez MD) Intractable generalized abdominal pain (Acute) Chest pain (Acute) Acute respiratory failure with hypoxia (Acute) LEX (acute kidney injury) (Acute) Nausea (Acute) Abdominal pain (Acute) Fever (Acute) Subjective: pt was on pressors for several hours yesterday--got IVF/albumin, no pressors overnight; Cr. increased plan for dialysis today, Hb down to 7.1 getting PRBCs - Physical Exam Vitals/I&O's: Vital Signs Temp Pulse Resp BP Pulse Ox 99 F 106 H 22 H 111/53 L 92 08/25/20 00:00 08/25/20 05:28 08/25/20 05:28 08/25/20 00:00 08/25/20 05:28 Oxygen Flow Rate (L/min) 6 Oxygen Delivery Method Mechanical Ventilator Weight: 238 lb 15.697 oz Body Mass Index (BMI) 35.9 Intake and Output for Last 24 Hours 08/23/20 08/24/20 08/25/20 23:59 23:59 23:59 Intake Total 2120.50 / 2131.60 452.16 / 472.16 40 / 40 Output Total 1075 / 1322 1900 / 1975 325 / 325 Balance 1045.50 / 809.60 -1447.84 / -1502.84 -285 / -285 General: - - intubated/sedated HEENT: - - ETT/OG/ RIJ triple lumen in place Lungs: - - bilateral CT in place, no leak bilateral -20 suction Cardiovascular: Tachycardic Abdomen: Soft, Distended - mild, - - wound vac in place Neurological: - - sedated Microbiology Past 72 Hours 08/20/20 Unknown Wound Drainage - Abdominal Gram Stain - Final 08/20/20 Unknown Wound Drainage - Abdominal Wound Culture - Final No growth aerobically. 08/20/20 Unknown Wound Drainage - Abdominal Anaerobic Culture - Preliminary No growth in 48 hours. Laboratory Results 08/24/20 11:10: PT 16.3 H, INR 1.4 08/24/20 18:36: POC Glucose 167 H 08/25/20 04:45: WBC 12.4 H, RBC 2.30 L, Hgb 7.1 L, Hct 22.7 L, MCV 98.7 H, MCH 30.9, MCHC 31.3 L, RDW Std Deviation 56.3 H, RDW Coeff of José Miguel 15.7 H, Plt Count 246, MPV 9.4, Neut % (Auto) Not Reportable, Absolute Neuts (auto) 8.8 H, Absolute Lymphs (auto) 2.61, Total Counted 100, Neutrophils % (Manual) 68, Band Neutrophils % 3, Lymphocytes % (Manual) 21, Monocytes % (Manual) 4, Metamyelocytes % 1, Myelocytes % 3 H, Nucleated RBCs/100 WBC 2, Diff Path Review May foll, Toxic Granulation 1+, Platelet Estimate ADEQUATE, Anisocytosis 1+, Microcytosis RARE, Macrocytosis RARE 08/25/20 04:45: Sodium 146 H, Potassium 4.5, Chloride 115 H, Carbon Dioxide 23.0, Anion Gap 8, BUN 101 H*, Creatinine 4.86 H, Estim Creat Clear Calc 11.53, Est GFR (MDRD) Af Amer 15 L, Est GFR (MDRD) Non-Af 12 L, BUN/Creatinine Ratio 20.8 H, Glucose 144 H, Calcium 7.2 L, Phosphorus 3.5, Magnesium 2.8 H, Total Bilirubin 0.60, AST 473 H, ALT 322 H, Alkaline Phosphatase 45, Total Protein 4.9 L, Albumin 1.8 L, Globulin 3.1, Albumin/Globulin Ratio 0.6 L Current Medications Enoxaparin Sodium (Enoxaparin 30 Mg/0.3 Ml Syringe) 30 mg SC DAILY [facility] Last Admin: 08/24/20 14:19 Dose: 30 mg Documented by: Finasteride (Finasteride 5 Mg Tablet) 5 mg PO QHS [facility] Last Admin: 08/24/20 22:32 Dose: Not Given Documented by: Fentanyl Citrate 1,000 mcg/ (Sodium Chloride) 100 mls @ 5 mls/hr CONT INF .Q20H [facility]; Protocol Last Titration: 08/25/20 04:00 Dose: 50 mcg/hr, 5 mls/hr Documented by: Propofol (Diprivan) 1,000 mg in 100 mls @ 6.123 mls/hr CONT INF .Q12H [facility]; Protocol Last Titration: 08/24/20 19:00 Dose: 10 mcg/kg/min, 6.1 mls/hr Documented by: Norepinephrine Bitartrate 8 mg (/ Sodium Chloride) 250 mls @ 9.375 mls/hr CONT INF .[id number] [facility]; Protocol Last Titration: 08/24/20 23:00 Dose: 0 mcg/min, 0 mls/hr Documented by: Multivitamins 10 ml/ Chromium/Copper/Manganese/Seleni/Zn 1 ml/ Folic Acid 1 mg/ Amino Acids/Electrolytes/Dextrose 2,011 mls @ 84 mls/hr IV .[id number] [facility] Stop: 08/25/20 15:48 Last Infusion: 08/24/20 17:00 Dose: 84 mls/hr Documented by: Pantoprazole Sodium 40 mg/ (Sodium Chloride) 110 mls @ 330 mls/hr IV Q12 [facility] Nitroglycerin (Nitroglycerin (Inpatient Use) 0.4 Mg Tab.Subl) 0.4 mg SUBLINGUAL Q5M PRN PRN Reason: CARDIAC/CHEST PAIN Last Admin: 08/23/20 02:12 Dose: 0.4 mg Documented by: Ondansetron HCl (Ondansetron 4 Mg/2 Ml Vial) 4 mg IV Q8H PRN PRN PRN Reason: NAUSEA Sodium Chloride (0.9% Saline Lock 10 Ml Syringe) 10 - 40 ml IV UD PRN PRN Reason: SALINE FLUSH Last Admin: 08/23/20 22:20 Dose: 20 ml Documented by: Medical Necessity - Tobacco Use Smoking Status: Never smoker Tobacco Use: Chew Assessment/Plan All Active Problems (Last Reviewed 08/23/20 @ 03:[address] Raj Méndez MD) Intractable generalized abdominal pain (Acute) Chest pain (Acute) Acute respiratory failure with hypoxia (Acute) LEX (acute kidney injury) (Acute) COVID-19 (Resolved) Nausea (Acute) Abdominal pain (Acute) Fever (Acute) 79 y/o M s/p sigmoidectomy, excision of subcut. seroma cavity for sigmoid mass POD 5, hypoxia status post intubation, bilateral chest tubes due to bilateral PTX, LEX, malnutrition, Anemia -Appreciate hospitalist and ICU help with management. -Vent per ICU -OG/n.p.o. -Acute kidney injury creatinine plan for dialysis today as Cr 4.86--RIJ changed to dialysis line, renal following -GI blood loss-via NG- pt was on pepcid changed to protonix last night, Hb 7.1 getting 2 units PRBC -severe malnutrition- TPN started yesterday Did discuss all events overnight and plans for today with Pt son, Ten (POA)--all of his questions were answered. d/w Ten --pt was in critical condition and this could take several days to improve with dialysis etc and dialysis would likely be temporary but we would have to take it day by day. Rita Hughes M.D. Pager: [phone] [facility] [address] [place] [address], [address] [place] [address] Office: [phone]
--- NOTE | 2020-08-25 08:19 | RAD_ITS ---
STUDY: X-RAY CHEST REASON FOR EXAM: Male, 79 years old. DIALYSIS CATH PLACEMENT TECHNIQUE: Single AP portable view of the chest. COMPARISON: Comparison is made with prior study dated 08/24/2020. FINDINGS: A right sided dialysis catheter has been placed. The tip is in the right atrium. An endotracheal tube is in situ. The tip is at 3.9 cm proximal to the essie. An orogastric tube is seen with the tip in the distal portion of the body of the stomach. Stable appearance of the bilateral pigtail catheters. Mild increasing markings at the right lung base suggestive of atelectasis. There is no evidence of pneumothorax. Normal size heart. Normal mediastinum and gurpreet. Normal visualized pulmonary arteries. There is atherosclerotic tortuosity of the aortic arch and descending thoracic aorta. There are diffuse degenerative changes of the visualized thoracic spine. Normal visualized ribs, clavicles, and shoulders. There is no demonstrated abnormality of the visualized soft tissue structures of the upper abdomen. RAD/CXR for Line Placement IMPRESSION: The tip of the dialysis catheter is seen within the right atrium. Mild linear increased markings at the right lung base suggestive of atelectasis. Electronically Signed: Merrick Shelton, at 10:46 EST , Service support ,
--- NOTE | 2020-08-25 08:40 | PCM.PN.INT ---
Subjective: Patient with bright red blood and clots noted out of OG overnight. Patient did have a decrease in H&H this morning. Chest tubes have shown no leak and patient has been able to be weaned somewhat on oxygenation. Patient is no longer on Levophed. General: - - Intubated and sedated. RASS -2. HEENT: Atraumatic, PERRLA, EOMI, Normocephalic, - - Scleral injection without icterus Oral: Moist Mucosa, No Gingival or Mucosal Lesions/ Ulcerations Neck: Supple, No Nodes, Trachea Midline, - - Right IJ is clean, dry and intact Lungs: No rhonchi, No wheeze, No rales, Diminished Cardiovascular: Normal S1, Normal S2, No murmurs, No rub noted, No Gallop, Tachycardic, - - Bilateral chest tubes Abdomen: Bowel Sounds Present, Soft, Distended - Slightly, Tender - Grimace with palpation close to incision Extremities: No cyanosis, Capillary Refill Less than 3 Seconds, Edema Skin: - - No change compared to previous Musculoskeletal: No Tenderness to Palpation of Joints or Extremities Lymphatic: No Cervical, Supraclavicular, or Inguinal Adenopathy Neurological: Cranial nerves II-XII grossly intact, Neuro grossly intact Psych/Mental Status: Flat Affect Vital Signs Temp Pulse Resp BP Pulse Ox 37.2 C 106 H 22 H 111/53 L 92 08/25/20 00:00 08/25/20 05:28 08/25/20 05:28 08/25/20 00:00 08/25/20 05:28 Oxygen Flow Rate (L/min) 6 Oxygen Delivery Method Mechanical Ventilator Weight: 108.4 kg Body Mass Index (BMI) 35.9 Intake and Output for Last 24 Hours 08/23/20 08/24/20 08/25/20 23:59 23:59 23:59 Intake Total 2120.50 / 2131.60 1052.16 / 1072.16 40 / 40 Output Total 1075 / 1322 1899 / 1975 325 / 325 Balance 1045.50 / 809.60 -847.84 / -902.84 -285 / -285 Labs (Last 48 Hours) 08/23/20 08/23/20 08/23/20 08:29 12:57 17:09 WBC RBC Hgb Hct MCV MCH MCHC RDW Std Deviation RDW Coeff of José Miguel Plt Count MPV Immature Gran % (Auto) Neut % (Auto) Lymph % (Auto) [place] % (Auto) Eos % (Auto) Baso % (Auto) Absolute Neuts (auto) Absolute Lymphs (auto) Total Counted Neutrophils % (Manual) Band Neutrophils % Lymphocytes % (Manual) Monocytes % (Manual) Metamyelocytes % Myelocytes % Nucleated RBC % Nucleated RBCs/100 WBC Diff Path Review Toxic Granulation Platelet Estimate Anisocytosis Microcytosis Macrocytosis PT INR Specimen Type ART Sample Site R Radial pH 7.18 L* Bicarbonate Actual 22.3 Total CO2 24 Base Excess -6 L O2 Saturation 94 L O2 % ABG pCO2 59.5 H ABG pO2 89 Derrek Test Respiration Rate O2 Delivery Device Cannula Liter Flow 7.0 Vent Mode Tidal Volume POC PEEP Sodium Potassium Chloride Carbon Dioxide Anion Gap BUN Creatinine Estim Creat Clear Calc Est GFR (MDRD) Af Amer Est GFR (MDRD) Non-Af BUN/Creatinine Ratio Glucose Calcium Phosphorus Magnesium Total Bilirubin AST ALT Alkaline Phosphatase Total Creatine Kinase Troponin I < 0.015 Total Protein Albumin Globulin Albumin/Globulin Ratio Triglycerides POC Glucose 174 H 08/24/20 08/24/20 08/24/20 03:30 03:30 06:31 WBC 9.6 RBC 3.13 L Hgb 9.3 L Hct 30.3 L MCV 96.8 H MCH 29.7 MCHC 30.7 L RDW Std Deviation 52.8 H RDW Coeff of José Miguel 14.9 H Plt Count 274 MPV 9.5 Immature Gran % (Auto) 4.500 H Neut % (Auto) 68.0 Lymph % (Auto) 14.6 L [place] % (Auto) 11.9 H Eos % (Auto) 0.6 Baso % (Auto) 0.4 Absolute Neuts (auto) 6.5 Absolute Lymphs (auto) 1.40 Total Counted Neutrophils % (Manual) Band Neutrophils % Lymphocytes % (Manual) Monocytes % (Manual) Metamyelocytes % Myelocytes % Nucleated RBC % 1.9 Nucleated RBCs/100 WBC Diff Path Review Toxic Granulation Platelet Estimate Anisocytosis Microcytosis Macrocytosis PT INR Specimen Type ART Sample Site R Radial pH 7.47 H Bicarbonate Actual 18.1 L Total CO2 19 Base Excess -6 L O2 Saturation 92 L O2 % 45 ABG pCO2 24.8 L ABG pO2 59 L Derrek Test Positive Respiration Rate 12 O2 Delivery Device Adult Vent Liter Flow Vent Mode AC Tidal Volume 450 POC PEEP 5 Sodium 145 Potassium 4.8 Chloride 114 H Carbon Dioxide 23.0 Anion Gap 8 BUN 68 H Creatinine 3.03 H Estim Creat Clear Calc 18.50 Est GFR (MDRD) Af Amer 26 L Est GFR (MDRD) Non-Af 21 L BUN/Creatinine Ratio 22.4 H Glucose 139 H Calcium 8.1 L Phosphorus Magnesium Total Bilirubin AST ALT Alkaline Phosphatase Total Creatine Kinase 693 H Troponin I Total Protein Albumin Globulin Albumin/Globulin Ratio Triglycerides 204 H POC Glucose 08/24/20 08/24/20 08/25/20 11:10 18:36 04:45 WBC 12.4 H RBC 2.30 L Hgb 7.1 L Hct 22.7 L MCV 98.7 H MCH 30.9 MCHC 31.3 L RDW Std Deviation 56.3 H RDW Coeff of José Miguel 15.7 H Plt Count 246 MPV 9.4 Immature Gran % (Auto) Neut % (Auto) Not Reportable Lymph % (Auto) [place] % (Auto) Eos % (Auto) Baso % (Auto) Absolute Neuts (auto) 8.8 H Absolute Lymphs (auto) 2.61 Total Counted 100 Neutrophils % (Manual) 68 Band Neutrophils % 3 Lymphocytes % (Manual) 21 Monocytes % (Manual) 4 Metamyelocytes % 1 Myelocytes % 3 H Nucleated RBC % Nucleated RBCs/100 WBC 2 Diff Path Review May foll Toxic Granulation 1+ Platelet Estimate ADEQUATE Anisocytosis 1+ Microcytosis RARE Macrocytosis RARE PT 16.3 H INR 1.4 Specimen Type Sample Site pH Bicarbonate Actual Total CO2 Base Excess O2 Saturation O2 % ABG pCO2 ABG pO2 Derrek Test Respiration Rate O2 Delivery Device Liter Flow Vent Mode Tidal Volume POC PEEP Sodium Potassium Chloride Carbon Dioxide Anion Gap BUN Creatinine Estim Creat Clear Calc Est GFR (MDRD) Af Amer Est GFR (MDRD) Non-Af BUN/Creatinine Ratio Glucose Calcium Phosphorus Magnesium Total Bilirubin AST ALT Alkaline Phosphatase Total Creatine Kinase Troponin I Total Protein Albumin Globulin Albumin/Globulin Ratio Triglycerides POC Glucose 167 H 08/25/20 04:45 WBC RBC Hgb Hct MCV MCH MCHC RDW Std Deviation RDW Coeff of José Miguel Plt Count MPV Immature Gran % (Auto) Neut % (Auto) Lymph % (Auto) [place] % (Auto) Eos % (Auto) Baso % (Auto) Absolute Neuts (auto) Absolute Lymphs (auto) Total Counted Neutrophils % (Manual) Band Neutrophils % Lymphocytes % (Manual) Monocytes % (Manual) Metamyelocytes % Myelocytes % Nucleated RBC % Nucleated RBCs/100 WBC Diff Path Review Toxic Granulation Platelet Estimate Anisocytosis Microcytosis Macrocytosis PT INR Specimen Type Sample Site pH Bicarbonate Actual Total CO2 Base Excess O2 Saturation O2 % ABG pCO2 ABG pO2 Derrek Test Respiration Rate O2 Delivery Device Liter Flow Vent Mode Tidal Volume POC PEEP Sodium 146 H Potassium 4.5 Chloride 115 H Carbon Dioxide 23.0 Anion Gap 8 BUN 101 H* Creatinine 4.86 H Estim Creat Clear Calc 11.53 Est GFR (MDRD) Af Amer 15 L Est GFR (MDRD) Non-Af 12 L BUN/Creatinine Ratio 20.8 H Glucose 144 H Calcium 7.2 L Phosphorus 3.5 Magnesium 2.8 H Total Bilirubin 0.60 AST 473 H ALT 322 H Alkaline Phosphatase 45 Total Creatine Kinase Troponin I Total Protein 4.9 L Albumin 1.8 L Globulin 3.1 Albumin/Globulin Ratio 0.6 L Triglycerides POC Glucose Microbiology 08/20/20 Unknown Wound Drainage - Abdominal Gram Stain - Final 08/20/20 Unknown Wound Drainage - Abdominal Wound Culture - Final No growth aerobically. 08/20/20 Unknown Wound Drainage - Abdominal Anaerobic Culture - Preliminary No growth in 48 hours. Clinical Impression(s) from Imaging Studies K[facility] X-Ray 08/24/20 08:39 IMPRESSION: The tip of the orogastric tube is in the distal body of the stomach. Less gaseous distention of the stomach with mild gaseous distention of the colon. Electronically Signed: Merrick Shelton, at 9:31 EST , Service support , Chest X-Ray 08/24/20 12:15 IMPRESSION: The right central line is seen with the tip in the midportion of the superior vena cava. No significant pneumothorax is seen. Electronically Signed: Merrick Shelton at 13:03 EST , Service support , Medical Necessity - Tobacco Use Smoking Status: Never smoker Tobacco Use: Chew Assessment/Plan All Active Problems (Last Reviewed 08/23/20 @ 03:[address] Raj Méndez MD) Intractable generalized abdominal pain (Acute) Chest pain (Acute) Acute respiratory failure with hypoxia (Acute) LEX (acute kidney injury) (Acute) COVID-19 (Resolved) Nausea (Acute) Abdominal pain (Acute) Fever (Acute) RECOMMENDATIONS: 1. Spontaneous awakening and breathing trials per protocol 2. Initiate Protonix. Transfuse 2 units packed red blood cells with repeat H&H this afternoon 3. Okay to continue with current vent settings, weaning oxygen as tolerated 4. Place hemodialysis line. Probable hemodialysis today per nephrology. 5. Continue with TPN for now 6. Anticipate keeping chest tubes until liberated from the ventilator IMPRESSIONS: 1. Acute hypoxic respiratory failure Exact etiology is unclear at this time. Patient is requiring significant increase in FiO2 to maintain saturations. Patient has been on IV fluids, so congestive heart failure would be a consideration. Patient noted to have hypercarbia on repeat ABG following gastric secretion removal. This led to intubation. Patient now with bilateral pneumothoraces requiring chest tube. We will continue with mechanical ventilation. Anticipate liberation from the ventilator prior to any removal of chest tubes. Still unclear why patient has such small lung volumes. 2. Large bowel obstruction secondary to sigmoid colon diverticulosis postop day #5/upper GI bleed Surgical site appears to be doing well. Wound VAC is in place. Bladder pressures were within normal limits earlier today. Unclear if bright red blood per OG is secondary to suction trauma, insertion or stress gastritis. Patient will be transitioned to Protonix therapy. 2 units of packed red blood cells will be given with a repeat H&H this afternoon 3. Acute kidney injury Consult nephrology. Significant worsening overnight. However, given respiratory issues, agree with discontinuation of IV fluids. We will continue to monitor. Patient may have an element of obstruction associated with bowel gas. Anticipate dialysis with possible volume removal. 4. Sinus tachycardia Unclear etiology at this time. This may be secondary to abdominal distention and respiratory distress and may resolve spontaneously with addressing of the underlying issue. Echocardiogram was relatively unremarkable. TIME: 40 minutes critical care time spent addressing patient's acute hypoxic respiratory failure, large bowel obstruction, acute kidney injury, sinus tachycardia, review of all data and collaboration with care team (5:30 AM to 6:30 AM) 9xxxx: [id number] Critical care first hour
[2020-08-25] MEDS: Propofol 10MG/Ml 1,000 MG/100 ML Bottle 6.1 MG CONT INF (09:00)
[2020-08-25] MEDS: 0.9% Saline Lock 10 ML Syringe IV ×2 (09:02→22:32)
[2020-08-25] MEDS: Heparin 10,000 UNITS/10 ML Vial 1000 UNITS IV (09:13)
--- NOTE | 2020-08-25 10:10 | PN_ITS ---
Patient Problems: Active and Suspected Problems (Last Reviewed 08/23/20 @ 03:[address] Raj Méndez MD) Intractable generalized abdominal pain (Acute) Chest pain (Acute) Acute respiratory failure with hypoxia (Acute) LEX (acute kidney injury) (Acute) Nausea (Acute) Abdominal pain (Acute) Fever (Acute) Subjective: Intubated and sedated. Overnight he had some blood come out of his OG so is being typed and crossed for transfusion Vitals/I&O's: Vital Signs Temp Pulse Resp BP Pulse Ox 99 F 107 H 22 H 111/53 L 93 08/25/20 00:00 08/25/20 07:00 08/25/20 07:00 08/25/20 00:00 08/25/20 07:00 Oxygen Flow Rate (L/min) 6 Oxygen Delivery Method Mechanical Ventilator Weight: 238 lb 15.697 oz Body Mass Index (BMI) 35.9 Intake and Output for Last 24 Hours 08/23/20 08/24/20 08/25/20 23:59 23:59 23:59 Intake Total 2120.50 / 2131.60 1052.16 / 1072.16 145.07 / 145.07 Output Total 1075 / 1322 1900 / 1975 325 / 325 Balance 1045.50 / 809.60 -847.84 / -902.84 -179.93 / -179.93 General: - - Intubated and sedated HEENT: Atraumatic, PERRLA, Normocephalic Oral: Moist Mucosa Neck: Supple, No JVD Lungs: Normal air movement, No rhonchi, No wheeze, No rales, Diminished Cardiovascular: Regular Rhythm, Normal S1, Normal S2, No murmurs, Tachycardic Abdomen: Soft, Non Tender, No Hepato-splenomegaly, Distended Extremities: No edema, Capillary Refill Less than 3 Seconds Skin: No rashes, No breakdown, Incision - Wound VAC in place in his midline incision Neurological: - - Intubated and sedated Psych/Mental Status: - - Intubated and sedated Microbiology Past 72 Hours 08/20/20 Unknown Wound Drainage - Abdominal Gram Stain - Final 08/20/20 Unknown Wound Drainage - Abdominal Wound Culture - Final No growth aerobically. 08/20/20 Unknown Wound Drainage - Abdominal Anaerobic Culture - Preliminary No growth in 48 hours. Laboratory Results 08/24/20 11:10: PT 16.3 H, INR 1.4 08/24/20 18:36: POC Glucose 167 H 08/25/20 04:45: WBC 12.4 H, RBC 2.30 L, Hgb 7.1 L, Hct 22.7 L, MCV 98.7 H, MCH 30.9, MCHC 31.3 L, RDW Std Deviation 56.3 H, RDW Coeff of José Miguel 15.7 H, Plt Count 246, MPV 9.4, Neut % (Auto) Not Reportable, Absolute Neuts (auto) 8.8 H, Absolute Lymphs (auto) 2.61, Total Counted 100, Neutrophils % (Manual) 68, Band Neutrophils % 3, Lymphocytes % (Manual) 21, Monocytes % (Manual) 4, Metamyelocytes % 1, Myelocytes % 3 H, Nucleated RBCs/100 WBC 2, Diff Path Review May foll, Toxic Granulation 1+, Platelet Estimate ADEQUATE, Anisocytosis 1+, Microcytosis RARE, Macrocytosis RARE 08/25/20 04:45: Sodium 146 H, Potassium 4.5, Chloride 115 H, Carbon Dioxide 23.0, Anion Gap 8, BUN 101 H*, Creatinine 4.86 H, Estim Creat Clear Calc 11.53, Est GFR (MDRD) Af Amer 15 L, Est GFR (MDRD) Non-Af 12 L, BUN/Creatinine Ratio 20.8 H, Glucose 144 H, Calcium 7.2 L, Phosphorus 3.5, Magnesium 2.8 H, Total Bilirubin 0.60, AST 473 H, ALT 322 H, Alkaline Phosphatase 45, Total Protein 4.9 L, Albumin 1.8 L, Globulin 3.1, Albumin/Globulin Ratio 0.6 L Current Medications Enoxaparin Sodium (Enoxaparin 30 Mg/0.3 Ml Syringe) 30 mg SC DAILY [facility] Last Admin: 08/24/20 14:19 Dose: 30 mg Documented by: Finasteride (Finasteride 5 Mg Tablet) 5 mg PO QHS [facility] Last Admin: 08/24/20 22:32 Dose: Not Given Documented by: Fentanyl Citrate 1,000 mcg/ (Sodium Chloride) 100 mls @ 5 mls/hr CONT INF .Q20H BHAVESH; Protocol Last Admin: 08/25/20 09:00 Dose: 50 mcg/hr, 5 mls/hr Documented by: Propofol (Diprivan) 1,000 mg in 100 mls @ 6.123 mls/hr CONT INF .Q12H BHAVESH; Protocol Last Admin: 08/25/20 09:08 Dose: Not Given Documented by: Norepinephrine Bitartrate 8 mg (/ Sodium Chloride) 250 mls @ 9.375 mls/hr CONT INF .[id number] [facility]; Protocol Last Titration: 08/24/20 23:00 Dose: 0 mcg/min, 0 mls/hr Documented by: Multivitamins 10 ml/ Chromium/Copper/Manganese/Seleni/Zn 1 ml/ Folic Acid 1 mg/ Amino Acids/Electrolytes/Dextrose 2,011 mls @ 84 mls/hr IV .[id number] [facility] Stop: 08/25/20 15:48 Last Infusion: 08/24/20 17:00 Dose: 84 mls/hr Documented by: Pantoprazole Sodium 40 mg/ (Sodium Chloride) 110 mls @ 330 mls/hr IV Q12 BHAVESH Nitroglycerin (Nitroglycerin (Inpatient Use) 0.4 Mg Tab.Subl) 0.4 mg SUBLINGUAL Q5M PRN PRN Reason: CARDIAC/CHEST PAIN Last Admin: 08/23/20 02:12 Dose: 0.4 mg Documented by: Ondansetron HCl (Ondansetron 4 Mg/2 Ml Vial) 4 mg IV Q8H PRN PRN PRN Reason: NAUSEA Sodium Chloride (0.9% Saline Lock 10 Ml Syringe) 10 - 40 ml IV UD PRN PRN Reason: SALINE FLUSH Last Admin: 08/25/20 09:02 Dose: 40 ml Documented by: STROKE Vital Signs/Narrative: Vital Signs Pulse Resp Pulse Ox 08/25/20 07:00 107 H 22 H 93 Medical Necessity - Tobacco Use Smoking Status: Never smoker Tobacco Use: Chew Assessment/Plan All Active Problems (Last Reviewed 08/23/20 @ 03:[address] Raj Méndez MD) Intractable generalized abdominal pain (Acute) Chest pain (Acute) Acute respiratory failure with hypoxia (Acute) LEX (acute kidney injury) (Acute) COVID-19 (Resolved) Nausea (Acute) Abdominal pain (Acute) Fever (Acute) 1. Acute hypoxic respiratory failure secondary to volume overload/bilateral pneumothoraces/sinus tachycardia -His tachycardia is improved after intubation however his blood pressure is marginal, will hold off on any rate control medications -Previous EKGs demonstrated sinus tachycardia. And his troponins were normal -he did receive bilateral chest tubes yesterday with good resolution of his pneumothorax on either side 2. Abdominal pain secondary to a large bowel obstruction from obstructing lesion in the sigmoid colon/acute renal failure/elevated LFTs -Status post surgical excision August 20, 2020 -He did receive antibiotics prior, during, and after the surgical procedure -Remains afebrile without a leukocytosis -Wound VAC is in place -LEX is prerenal. On August 20, 2020 he was 1.05 and then he increased to 3.03 the next day. -He was given 80 mg of Lasix without any urine output. His creatinine increased from 1.9 to little over 3. We will consult nephrology to assist with his renal failure. -Given his elevation in BUN and his creatinine to 4.[address] a catheter for dialysis -AST and ALT are also elevated now, will continue to monitor could be secondary to cardiogenic shock as she is not requiring IV pressor support 3. Upper GI bleed with acute blood loss anemia -She had an OG inserted after intubation and was placed on suction -Continue with PPI coverage and will transfuse 2 units. He dropped to 7.1 -We will hold Lovenox and placed on SCDs 4. BPH -Stable -Pekc is in place. Once stable can resume Proscar and Flomax DVT: CDs Inpatient E&M: 56016 Subs Hosp L2
[2020-08-25 12:20] LABS: Bedside Glucose 132 mg/dL (70-110)
[2020-08-25 12:42] LABS: Pathologist Review Reviewed
--- NOTE | 2020-08-25 15:13 | PCM.PN.BLA ---
Progress Note Discussed patients current condition/events of hospitalization via conference call to Ten (son/POA), pt daughter/son-in-law, 5 of 6 of Jeffs daughters. total time on phone 35 mins- answered all questions to their satisfaction. Did express that pt is in critical condition-this will not be a quick process it will take several days to really be able to assess how things are going. We will take everything day by day and hopefully have small gains forward each day. STROKE Vital Signs/Narrative: Vital Signs Temp Pulse Resp BP BP Pulse Ox 08/25/20 13:00 110 H 19 H 120/57 L 94 08/25/20 12:00 100 F H 110 H 21 H 127/54 H 94
[2020-08-25] MEDS: Acetaminophen 650 MG Suppository RECTAL (15:25)
--- NOTE | 2020-08-25 15:48 | PCM.OPRPT ---
Report of Operation Date of Procedure: 08/25/20 Surgery/Procedure Performed:: Dialysis catheter insertion Description of Surgical Findings:: Central line placement procedure note Indication: IV access/hemodynamic instability/vasoactive medications/TPN Procedure: A time-out was completed to verify correct patient, indication, medication allergies, procedure, coagulation studies, informed consent signed, and equipment needed. The patient was placed in the supine position for a central line placement to the left IJ vein. The patients left neckwas prepped using chlorhexidine and a full body sterile drape was applied. 1% lidocaine was used to anesthetize the surrounding skin. Gained access to the left IJ vein. Nonpulsatile, dark-colored blood returned. Unable to pass guidewire. Aborted procedure. Pressure applied to site. Hemostasis achieved. Transition to right IJ triple-lumen catheter to temporary hemodialysis catheter Indication: Temporary hemodialysis Procedure: A time-out was completed to verify correct patient, indication, medication allergies, procedure, coagulation studies, informed consent signed, and equipment needed. The patient was placed in the supine position for a central line placement to the rt IJ rt vein. The patients rt neck was prepped using chlorhexidine and a full body sterile drape was applied. 1% lidocaine was used to anesthetize the surrounding skin. A guidewire was placed into the brown port of the triple-lumen catheter. The triple-lumen catheter was then easily removed from the site. The site was then dilated up twice in a stepwise fashion. The temporary hemodialysis catheter was placed easily over the guidewire. The guidewire was removed easily. Nonpulsatile blood returned. All ports were aspirated of air and flushed with sterile saline And locked with you 1000 heparin 1.4 cc to each port. The catheter was sutured in place and covered with an occlusive dressing impregnated with chlorhexidine. Post-procedure: The patient tolerated the procedure well. Vital signs remained stable. [id number]. No complications. Chest X Ray ordered to confirm tip placement and the absence of pneumothorax. Procedures: Other Procedure - See Report
[2020-08-25 17:50] LABS: Bedside Glucose 133 mg/dL (70-110)
--- NOTE | 2020-08-25 18:50 | NURSING ---
given with dialysis by automotive mechanic
--- NOTE | 2020-08-25 19:04 | NURSING ---
infusing via dialysis
--- NOTE | 2020-08-25 20:56 | DIALYSIS ---
HD x 2 hours complete. Tolerated tx well. System clotted half way through tx. Unable to return some of the blood. A new system was set up to finish tx. Dr. Gee is aware. Pt received 2 units of PRBC's during tx. UF of 450ml. Used Right IJ catheter. Catheter is positional. Lumens closed with heparin per fill volume. Caps placed. Dressing is dry and intact. Report given to DANO Plummer
[2020-08-25] MEDS: Propofol 10MG/Ml 1,000 MG/100 ML Bottle 3.1 MG CONT INF (22:31)
[2020-08-25] MEDS: Heparin 10,000 UNITS/10 ML Vial IV (22:33)
[2020-08-25] MEDS: Finasteride 5 MG Tablet PO (22:34)
[2020-08-25 23:36] LABS: Hemoglobin 9.5 g/dL (13.0-16.5)
[2020-08-25 23:50] LABS: Bedside Glucose 131 mg/dL (70-110)
[2020-08-26] VITALS (38 sets, daily range): BP systolic 68–139; BP diastolic 35–71; PULSE 30–125; RESP 12–34; TEMP 35–40; O2SAT 91–98
[2020-08-26 03:29] LABS: Hematocrit 30.9 % (40-54); Hemoglobin 9.9 g/dL (13.0-16.5); Mean Corpuscular Hgb 30.5 pg (27.0-32.0); Mean Corpuscular Volume 95.1 fL (80-94); Mean Platelet Vol. 9.7 fl (6.2-12.0); POSITIVE COUNT YES; POSITIVE MORPHOLOGY YES; Platelet Count 195 K/mm3 (150-450); RBC Distribution Width CV 15.4 % (11.6-14.6); RBC Distribution Width SD 52.7 fl (35.1-43.9); Red Blood Count 3.25 M/mm3 (4.6-6.2)
[2020-08-26 03:38] LABS: Differential Indicated MANUAL DIFF
[2020-08-26 03:43] LABS: Total Cells Counted 100 (MANUAL DIFF)
[2020-08-26 03:48] LABS: Eosinophil 1 % (0-5); Lymphocyte 15 % (19-41); Metamyelocyte 2 % (0-1); Monocyte 4 % (0-10); Myelocyte 2 (0-0); Neutrophil-Band 6 % (0-5); Neutrophil-Segmented 69 % (47-70); Promyelocyte 1 (0-0)
[2020-08-26] MEDS: Acetaminophen 650 MG Suppository RECTAL (03:48)
[2020-08-26 03:49] LABS: Nucleated Red Bld Cells,Manual 2 % (0-5); Platelet Estimate ADEQUATE (ADEQ); Toxic Granulation 1+
[2020-08-26 03:51] LABS: Anisocytosis 1+; Atypical Lymphocyte RARE %; Macrocytosis 1+
[2020-08-26 03:52] LABS: ALB/GLOB Ratio 0.4 RATIO (0.9-2.4); AST(SGOT) 323 U/L (15-37); Absolute Lymphocyte Count 1.35 X10^3/uL (0.83-4.51); Absolute Neutrophil Count 6.7 X10^3/uL (2.0-7.7); Alanine Aminotransfer ALT/SGPT 298 U/L (16-61); Albumin, Serum 1.8 g/dL (3.2-5.0); Alkaline Phosphatase 235 U/L (45-117); Anion Gap 7 (5-15); BUN 85 mg/dL (7-18); Calcium,Total 7.1 mg/dL (8.5-10.1); Chloride 111 mmol/L (98-107); Creatinine, Serum 4.04 mg/dL (0.70-1.30); EST Glomerular Filtration Rate 15 mL/min (>60); Est Glom Filt Rate - Afr Amer 18 mL/min (>60); Estimated Creatinine Clearance 13.87 ml/min; Glucose 113 mg/dL (74-106); Lymphocyte # 1.35 X10^3/ul (4.0); Magnesium 2.7 mg/dL (1.6-2.6); Neutrophil # 6.74 X10^3/uL (2.7-7.7); Phosphorus 4.6 mg/dL (2.5-4.9); Potassium 4.6 mmol/L (3.5-5.1); Protein, Total 5.8 g/dL (6.4-8.2); Sodium Level 143 mmol/L (136-145)
[2020-08-26 05:46] LABS: Bedside Glucose 113 mg/dL (70-110)
--- NOTE | 2020-08-26 05:54 | NURSING ---
Patient placed on cooling blanket at this time.
--- NOTE | 2020-08-26 07:03 | NURSING ---
Dr Bridges is aware of patients temp at this time, and that the patient has been given Tylenol and was placed on the cooling blanket, and his temp is still climbing. Asked if he wanted any other interventions done at this time and he said no not at this time we will continue to monitor the patient.
--- NOTE | 2020-08-26 09:04 | PCM.PN.SRG ---
Patient Problems: Active and Suspected Problems (Last Reviewed 08/23/20 @ 03:[address] Raj Méndez MD) Intractable generalized abdominal pain (Acute) Chest pain (Acute) Acute respiratory failure with hypoxia (Acute) LEX (acute kidney injury) (Acute) Nausea (Acute) Abdominal pain (Acute) Fever (Acute) Subjective: The patient developed high-grade fevers and mottling of his lower extremities overnight. - Physical Exam Vitals/I&O's: Vital Signs Temp Pulse Resp BP Pulse Ox 103.6 F H 125 H 28 H 92/59 L 96 08/26/20 08:00 08/26/20 08:00 08/26/20 08:00 08/26/20 08:00 08/26/20 08:00 Oxygen Flow Rate (L/min) 45 Oxygen Delivery Method Mechanical Ventilator Weight: 229 lb 15.074 oz Body Mass Index (BMI) 35.9 Intake and Output for Last 24 Hours 08/24/20 08/25/20 08/26/20 23:59 23:59 23:59 Intake Total 1052.16 / 1072.16 3150.49 / 3158.59 177.58 / 177.58 Output Total 190 / 1974 1727 / 1727 298 / 298 Balance -847.84 / -902.84 1423.49 / 1431.59 -120.42 / -120.42 General: - - Intubated and sedated Lungs: - - Intubated on 30% FiO2 Abdomen: Soft, Non-Distended Microbiology Past 72 Hours 08/20/20 Unknown Wound Drainage - Abdominal Gram Stain - Final 08/20/20 Unknown Wound Drainage - Abdominal Wound Culture - Final No growth aerobically. 08/20/20 Unknown Wound Drainage - Abdominal Anaerobic Culture - Final No anaerobic bacteria isolated. Laboratory Results 08/25/20 04:45: Diff Path Review Reviewed 08/25/20 12:08: Blood Type A POSITIVE, Antibody Screen NEGATIVE 08/25/20 12:08: Crossmatch See Detail 08/25/20 12:13: POC Glucose 132 H 08/25/20 17:47: POC Glucose 133 H 08/25/20 20:34: Hep Bs Antibody Pending 08/25/20 20:34: Hep B Core IgM Ab Pending 08/25/20 20:34: Hep Bs Antigen Pending 08/25/20 23:20: Hgb 9.5 L, Hct 30.0 L 08/25/20 23:40: POC Glucose 131 H 08/26/20 03:20: WBC 9.0, RBC 3.25 L, Hgb 9.9 L, Hct 30.9 L, MCV 95.1 H, MCH 30.5, MCHC 32.0, RDW Std Deviation 52.7 H, RDW Coeff of José Miguel 15.4 H, Plt Count 195, MPV 9.7, Neut % (Auto) Not Reportable, Absolute Neuts (auto) 6.7, Absolute Lymphs (auto) 1.35, Total Counted 100, Neutrophils % (Manual) 69, Band Neutrophils % 6 H, Lymphocytes % (Manual) 15 L, Monocytes % (Manual) 4, Eosinophils % (Manual) 1, Metamyelocytes % 2 H, Myelocytes % 2 H, Promyelocytes % 1 H, Nucleated RBCs/100 WBC 2, Diff Path Review May foll, Atypical Lymphocytes RARE, Toxic Granulation 1+, Platelet Estimate ADEQUATE, Anisocytosis 1+, Macrocytosis 1+ 08/26/20 03:20: Sodium 143, Potassium 4.6, Chloride 111 H, Carbon Dioxide 25.0, Anion Gap 7, BUN 85 H, Creatinine 4.04 H, Estim Creat Clear Calc 13.87, Est GFR (MDRD) Af Amer 18 L, Est GFR (MDRD) Non-Af 15 L, BUN/Creatinine Ratio 21.0 H, Glucose 113 H, Calcium 7.1 L, Phosphorus 4.6, Magnesium 2.7 H, Total Bilirubin 1.50 H, AST 323 H, ALT 298 H, Alkaline Phosphatase 235 H, Total Protein 5.8 L, Albumin 1.8 L, Globulin 4.0, Albumin/Globulin Ratio 0.4 L 08/26/20 05:40: POC Glucose 113 H Current Medications Acetaminophen (Acetaminophen 650 Mg Suppository) 650 mg RECTAL Q6H PRN PRN PRN Reason: FEVER Last Admin: 08/26/20 03:48 Dose: 650 mg Documented by: Finasteride (Finasteride 5 Mg Tablet) 5 mg PO QHS BHAVESH Last Admin: 08/25/20 22:34 Dose: 5 mg Documented by: Fentanyl Citrate 1,000 mcg/ (Sodium Chloride) 100 mls @ 5 mls/hr CONT INF .Q20H BHAVESH; Protocol Last Titration: 08/26/20 07:00 Dose: 50 mcg/hr, 5 mls/hr Documented by: Propofol (Diprivan) 1,000 mg in 100 mls @ 6.123 mls/hr CONT INF .Q12H BHAVESH; Protocol Last Titration: 08/26/20 07:00 Dose: 10 mcg/kg/min, 6.1 mls/hr Documented by: Pantoprazole Sodium 40 mg/ (Sodium Chloride) 110 mls @ 330 mls/hr IV Q12 BHAVESH Last Infusion: 08/25/20 22:59 Dose: Infused Documented by: Meropenem 1 gm/ Sodium (Chloride) 120 mls @ 33 mls/hr IV Q12H BHAVESH Last Admin: 08/26/20 06:21 Dose: 33 mls/hr Documented by: Nitroglycerin (Nitroglycerin (Inpatient Use) 0.4 Mg Tab.Subl) 0.4 mg SUBLINGUAL Q5M PRN PRN Reason: CARDIAC/CHEST PAIN Last Admin: 08/23/20 02:12 Dose: 0.4 mg Documented by: Ondansetron HCl (Ondansetron 4 Mg/2 Ml Vial) 4 mg IV Q8H PRN PRN PRN Reason: NAUSEA Sodium Chloride (0.9% Saline Lock 10 Ml Syringe) 10 - 40 ml IV UD PRN PRN Reason: SALINE FLUSH Last Admin: 08/25/20 22:32 Dose: 40 ml Documented by: Medical Necessity - Tobacco Use Smoking Status: Never smoker Tobacco Use: Chew Assessment/Plan All Active Problems (Last Reviewed 08/23/20 @ 03:[address] Raj Méndez MD) Intractable generalized abdominal pain (Acute) Chest pain (Acute) Acute respiratory failure with hypoxia (Acute) LEX (acute kidney injury) (Acute) COVID-19 (Resolved) Nausea (Acute) Abdominal pain (Acute) Fever (Acute) 79-year-old male status post sigmoid colectomy with hypoxia and fever 1. Patient remains on a ventilator with chest tubes in place for bilateral pneumothoraces. There are no air leaks bilaterally. The patient still has dark material from his OG tube. The patient developed fever of 104 overnight and was started on cooling blanket and did receive dialysis and 2 units of blood yesterday. Patient's labs were reviewed. His white count is 9 with hemoglobin that is stable since yesterday after transfusion. The patient developed mottling of his lower extremities this morning. Patient's abdomen is soft and nondistended with no guarding or rebound 2. I am still unsure as to the etiology of his critical condition. The patient's white count was normal and if there was abdominal infection I would expect an increased white count or guarding in the abdomen. The patient did have Covid at the end of June and I am unsure if he is still hypercoagulable due to the Covid infection and may have formed thrombus causing this. The patient is currently not on anticoagulation due to dark material from the NG but may be resumed if necessary. 3. I discussed the patient's status with the patient's son. I explained that he was in critical condition and we did offer him to come visit his father. I also discussed CODE STATUS and the patient is very insistent that his father would want a full CODE STATUS. Joel Pacheco MD Pager: [facility] [address] [place] [address] [address] [place] [address] Office:
--- NOTE | 2020-08-26 09:14 | PCM.PN.INT ---
Subjective: Patient with persistent fevers overnight. Patient also noted to have more jaundice and mottling of the lower extremities. Patient continues to have bloody output out of the OG, but this appears to be improving. Patient is unresponsive. Patient's family has been updated by surgery. Patient did tolerate dialysis yesterday General: Disoriented, Lethargic, Non-Cooperative, - - Intubated. Good vent synchrony. HEENT: Atraumatic, PERRLA, EOMI, Normocephalic, - - Jaundice noted. Oral: No Gingival or Mucosal Lesions/ Ulcerations, Dry Mucosa Neck: Supple, No JVD, No Nodes, Trachea Midline Lungs: No wheeze, No rales, Diminished, Rhonchi, - - Symmetric expansion Cardiovascular: Normal S1, Normal S2, No murmurs, No rub noted, No Gallop, Tachycardic, - Abdomen: Soft, Distended, Obese, Tender - Some grimace with deep palpation by wound Extremities: No clubbing, No cyanosis, Edema Skin: - - Some mottling of lower extremities noted. Musculoskeletal: No Tenderness to Palpation of Joints or Extremities Lymphatic: No Cervical, Supraclavicular, or Inguinal Adenopathy Neurological: - - Withdraws to pain. Positive gag and cough reflexes. Psych/Mental Status: Flat Affect Vital Signs Temp Pulse Resp BP Pulse Ox 39.7 C H 117 H 29 H 84/55 L 95 08/26/20 09:00 08/26/20 09:00 08/26/20 09:00 08/26/20 09:00 08/26/20 09:00 Oxygen Flow Rate (L/min) 45 Oxygen Delivery Method Mechanical Ventilator Weight: 104.3 kg Body Mass Index (BMI) 35.9 Intake and Output for Last 24 Hours 08/24/20 08/25/20 08/26/20 23:59 23:59 23:59 Intake Total 1052.16 / 1072.16 3150.49 / 3158.59 177.58 / 177.58 Output Total 1899 / 19747 / 1727 298 / 298 Balance -847.84 / -902.84 1423.49 / 1431.59 -120.42 / -120.42 Labs (Last 48 Hours) 08/24/20 08/24/20 08/25/20 11:10 18:36 04:45 WBC 12.4 H RBC 2.30 L Hgb 7.1 L Hct 22.7 L MCV 98.7 H MCH 30.9 MCHC 31.3 L RDW Std Deviation 56.3 H RDW Coeff of José Miguel 15.7 H Plt Count 246 MPV 9.4 Neut % (Auto) Not Reportable Absolute Neuts (auto) 8.8 H Absolute Lymphs (auto) 2.61 Total Counted 100 Neutrophils % (Manual) 68 Band Neutrophils % 3 Lymphocytes % (Manual) 21 Monocytes % (Manual) 4 Eosinophils % (Manual) Metamyelocytes % 1 Myelocytes % 3 H Promyelocytes % Nucleated RBCs/100 WBC 2 Diff Path Review Reviewed Atypical Lymphocytes Toxic Granulation 1+ Platelet Estimate ADEQUATE Anisocytosis 1+ Microcytosis RARE Macrocytosis RARE PT 16.3 H INR 1.4 Sodium Potassium Chloride Carbon Dioxide Anion Gap BUN Creatinine Estim Creat Clear Calc Est GFR (MDRD) Af Amer Est GFR (MDRD) Non-Af BUN/Creatinine Ratio Glucose Calcium Phosphorus Magnesium Total Bilirubin AST ALT Alkaline Phosphatase Total Protein Albumin Globulin Albumin/Globulin Ratio Hep Bs Antigen Hep Bs Antibody Hep B Core IgM Ab POC Glucose 167 H Blood Type Antibody Screen Crossmatch 08/25/20 08/25/20 08/25/20 04:45 12:08 12:08 WBC RBC Hgb Hct MCV MCH MCHC RDW Std Deviation RDW Coeff of José Miguel Plt Count MPV Neut % (Auto) Absolute Neuts (auto) Absolute Lymphs (auto) Total Counted Neutrophils % (Manual) Band Neutrophils % Lymphocytes % (Manual) Monocytes % (Manual) Eosinophils % (Manual) Metamyelocytes % Myelocytes % Promyelocytes % Nucleated RBCs/100 WBC Diff Path Review Atypical Lymphocytes Toxic Granulation Platelet Estimate Anisocytosis Microcytosis Macrocytosis PT INR Sodium 146 H Potassium 4.5 Chloride 115 H Carbon Dioxide 23.0 Anion Gap 8 BUN 101 H* Creatinine 4.86 H Estim Creat Clear Calc 11.53 Est GFR (MDRD) Af Amer 15 L Est GFR (MDRD) Non-Af 12 L BUN/Creatinine Ratio 20.8 H Glucose 144 H Calcium 7.2 L Phosphorus 3.5 Magnesium 2.8 H Total Bilirubin 0.60 AST 473 H ALT 322 H Alkaline Phosphatase 45 Total Protein 4.9 L Albumin 1.8 L Globulin 3.1 Albumin/Globulin Ratio 0.6 L Hep Bs Antigen Hep Bs Antibody Hep B Core IgM Ab POC Glucose Blood Type A POSITIVE Antibody Screen NEGATIVE Crossmatch See Detail 08/25/20 08/25/20 08/25/20 12:13 17:47 20:34 WBC RBC Hgb Hct MCV MCH MCHC RDW Std Deviation RDW Coeff of José Miguel Plt Count MPV Neut % (Auto) Absolute Neuts (auto) Absolute Lymphs (auto) Total Counted Neutrophils % (Manual) Band Neutrophils % Lymphocytes % (Manual) Monocytes % (Manual) Eosinophils % (Manual) Metamyelocytes % Myelocytes % Promyelocytes % Nucleated RBCs/100 WBC Diff Path Review Atypical Lymphocytes Toxic Granulation Platelet Estimate Anisocytosis Microcytosis Macrocytosis PT INR Sodium Potassium Chloride Carbon Dioxide Anion Gap BUN Creatinine Estim Creat Clear Calc Est GFR (MDRD) Af Amer Est GFR (MDRD) Non-Af BUN/Creatinine Ratio Glucose Calcium Phosphorus Magnesium Total Bilirubin AST ALT Alkaline Phosphatase Total Protein Albumin Globulin Albumin/Globulin Ratio Hep Bs Antigen Hep Bs Antibody Pending Hep B Core IgM Ab POC Glucose 132 H 133 H Blood Type Antibody Screen Crossmatch 08/25/20 08/25/20 08/25/20 20:34 20:34 23:20 WBC RBC Hgb 9.5 L Hct 30.0 L MCV MCH MCHC RDW Std Deviation RDW Coeff of José Miguel Plt Count MPV Neut % (Auto) Absolute Neuts (auto) Absolute Lymphs (auto) Total Counted Neutrophils % (Manual) Band Neutrophils % Lymphocytes % (Manual) Monocytes % (Manual) Eosinophils % (Manual) Metamyelocytes % Myelocytes % Promyelocytes % Nucleated RBCs/100 WBC Diff Path Review Atypical Lymphocytes Toxic Granulation Platelet Estimate Anisocytosis Microcytosis Macrocytosis PT INR Sodium Potassium Chloride Carbon Dioxide Anion Gap BUN Creatinine Estim Creat Clear Calc Est GFR (MDRD) Af Amer Est GFR (MDRD) Non-Af BUN/Creatinine Ratio Glucose Calcium Phosphorus Magnesium Total Bilirubin AST ALT Alkaline Phosphatase Total Protein Albumin Globulin Albumin/Globulin Ratio Hep Bs Antigen Pending Hep Bs Antibody Hep B Core IgM Ab Pending POC Glucose Blood Type Antibody Screen Crossmatch 08/25/20 08/26/20 08/26/20 23:40 03:20 03:20 WBC 9.0 RBC 3.25 L Hgb 9.9 L Hct 30.9 L MCV 95.1 H MCH 30.5 MCHC 32.0 RDW Std Deviation 52.7 H RDW Coeff of José Miguel 15.4 H Plt Count 195 MPV 9.7 Neut % (Auto) Not Reportable Absolute Neuts (auto) 6.7 Absolute Lymphs (auto) 1.35 Total Counted 100 Neutrophils % (Manual) 69 Band Neutrophils % 6 H Lymphocytes % (Manual) 15 L Monocytes % (Manual) 4 Eosinophils % (Manual) 1 Metamyelocytes % 2 H Myelocytes % 2 H Promyelocytes % 1 H Nucleated RBCs/100 WBC 2 Diff Path Review May foll Atypical Lymphocytes RARE Toxic Granulation 1+ Platelet Estimate ADEQUATE Anisocytosis 1+ Microcytosis Macrocytosis 1+ PT INR Sodium 143 Potassium 4.6 Chloride 111 H Carbon Dioxide 25.0 Anion Gap 7 BUN 85 H Creatinine 4.04 H Estim Creat Clear Calc 13.87 Est GFR (MDRD) Af Amer 18 L Est GFR (MDRD) Non-Af 15 L BUN/Creatinine Ratio 21.0 H Glucose 113 H Calcium 7.1 L Phosphorus 4.6 Magnesium 2.7 H Total Bilirubin 1.50 H AST 323 H ALT 298 H Alkaline Phosphatase 235 H Total Protein 5.8 L Albumin 1.8 L Globulin 4.0 Albumin/Globulin Ratio 0.4 L Hep Bs Antigen Hep Bs Antibody Hep B Core IgM Ab POC Glucose 131 H Blood Type Antibody Screen Crossmatch 08/26/20 05:40 WBC RBC Hgb Hct MCV MCH MCHC RDW Std Deviation RDW Coeff of José Miguel Plt Count MPV Neut % (Auto) Absolute Neuts (auto) Absolute Lymphs (auto) Total Counted Neutrophils % (Manual) Band Neutrophils % Lymphocytes % (Manual) Monocytes % (Manual) Eosinophils % (Manual) Metamyelocytes % Myelocytes % Promyelocytes % Nucleated RBCs/100 WBC Diff Path Review Atypical Lymphocytes Toxic Granulation Platelet Estimate Anisocytosis Microcytosis Macrocytosis PT INR Sodium Potassium Chloride Carbon Dioxide Anion Gap BUN Creatinine Estim Creat Clear Calc Est GFR (MDRD) Af Amer Est GFR (MDRD) Non-Af BUN/Creatinine Ratio Glucose Calcium Phosphorus Magnesium Total Bilirubin AST ALT Alkaline Phosphatase Total Protein Albumin Globulin Albumin/Globulin Ratio Hep Bs Antigen Hep Bs Antibody Hep B Core IgM Ab POC Glucose 113 H Blood Type Antibody Screen Crossmatch Microbiology 08/20/20 Unknown Wound Drainage - Abdominal Gram Stain - Final 08/20/20 Unknown Wound Drainage - Abdominal Wound Culture - Final No growth aerobically. 08/20/20 Unknown Wound Drainage - Abdominal Anaerobic Culture - Final No anaerobic bacteria isolated. Clinical Impression(s) from Imaging Studies Chest X-Ray 08/25/20 08:19 IMPRESSION: The tip of the dialysis catheter is seen within the right atrium. Mild linear increased markings at the right lung base suggestive of atelectasis. Electronically Signed: Merrick Shelton, at 10:46 EST , Service support , Medical Necessity - Tobacco Use Smoking Status: Never smoker Tobacco Use: Chew Assessment/Plan All Active Problems (Last Reviewed 08/23/20 @ 03:[address] Raj Méndez MD) Intractable generalized abdominal pain (Acute) Chest pain (Acute) Acute respiratory failure with hypoxia (Acute) LEX (acute kidney injury) (Acute) COVID-19 (Resolved) Nausea (Acute) Abdominal pain (Acute) Fever (Acute) RECOMMENDATIONS: 1. Spontaneous awakening and breathing trials per protocol 2. Continue Protonix 3. Okay to continue with current vent settings, weaning oxygen as tolerated 4. Hemodialysis per nephrology. Likely no volume removal given blood pressures 5. Initiate empiric antibiotics and panculture. Possible need for Levophed later today 6. Anticipate keeping chest tubes until liberated from the ventilator IMPRESSIONS: 1. Acute hypoxic respiratory failure Exact etiology is unclear at this time. Patient is requiring significant increase in FiO2 to maintain saturations. Patient has been on IV fluids, so congestive heart failure would be a consideration. Patient noted to have hypercarbia on repeat ABG following gastric secretion removal. This led to intubation. Patient now with bilateral pneumothoraces requiring chest tube. We will continue with mechanical ventilation. Anticipate liberation from the ventilator prior to any removal of chest tubes. Still unclear why patient has such small lung volumes. 2. Large bowel obstruction secondary to sigmoid colon diverticulosis postop day #6/upper GI bleed Surgical site appears to be doing well. Wound VAC is in place. Bladder pressures were within normal limits earlier today. Unclear if bright red blood per OG is secondary to suction trauma, insertion or stress gastritis. Patient will be transitioned to Protonix therapy. Blood counts have remained stable, but does have bloody secretions of the OG. 3. Acute kidney injury Consult nephrology. She did tolerate dialysis yesterday. Will defer to nephrology. Will likely not be able to tolerate volume removal, but is receiving TPN. 4. Sinus tachycardia Unclear etiology at this time. Patient has been febrile. Echocardiogram was relatively unremarkable. 5. Fever Unclear etiology. Unclear if patient has an element of sepsis given tachycardia, fever and worsening perfusion. Patient will have khan cultures obtained and started on empiric antibiotics. Hypercoagulable state is also possible, but given bloody GI secretions it is unclear if patient would tolerate a heparin drip. TIME: 40 minutes critical care time spent addressing patient's acute hypoxic respiratory failure, large bowel obstruction, acute kidney injury, sinus tachycardia, review of all data and collaboration with care team (5:30 AM to 6:30 AM) [id number] Critical care first hour
--- NOTE | 2020-08-26 10:07 | US_ITS ---
STUDY: ABDOMINAL ULTRASOUND - RIGHT UPPER QUADRANT REASON FOR VISIT: Male, 79 years old SEPSIS TECHNIQUE: Ultrasound evaluation of the right upper quadrant was performed with real-time and static allred-scale imaging. TECHNICAL QUALITY: Adequate. COMPARISON: None. FINDINGS: Liver: The liver measures 16.8 cm. There is increased echogenicity consistent with fatty infiltration. The bile ducts are within normal limits. There is hepatic color flow. The direction of portal flow is hepatopetal. There is no demonstrated mass lesion. Gallbladder: Normal distended gallbladder. The gallbladder wall measures 2 mm. There is a negative sonographic Dozier''s sign. There is no pericholecystic fluid. Stones and sludge within the gallbladder. Common Bile Duct (C.B.D.): The common bile duct measures 3 mm. Pancreas: There is nonvisualization of the pancreas.. Right Kidney: Normal size of the right kidney. The right kidney measures 10.1 cm. Normal renal cortex. The right cortex measures 1.3 cm. There is no demonstrated renal mass or cyst. There is no right hydronephrosis. US/Abdomen Limited IMPRESSION: 1. Cholelithiasis. 2. Fatty infiltration of the liver. Electronically Signed: Dario Flores MD at 12:45 EST Tel , Service support ,
--- NOTE | 2020-08-26 10:11 | RAD_ITS ---
STUDY: X-RAY CHEST REASON FOR EXAM: Male, 79 years old. POSSIBLE FREE AIR IN ABDOMEN TECHNIQUE: Single AP portable view of the chest. COMPARISON: 08/24/2020 FINDINGS: Interval placement of right upper extremity PICC with tip the catheter overlying the superior vena cava and no pneumothorax. Endotracheal tube, nasogastric tube, bilateral thoracostomy tubes, and the right internal jugular deep venous line all of which are unchanged. Poor inspiration with some bibasilar atelectasis. There is no demonstrated pleural abnormality. Normal size heart. Normal mediastinum and gurpreet. Normal visualized pulmonary arteries. Normal visualized aortic arch and descending thoracic aorta. Normal visualized thoracic spine. Normal visualized ribs, clavicles, and shoulders. There is no demonstrated abnormality of the visualized soft tissue structures of the upper abdomen. RAD/Chest 1 View (Portable) IMPRESSION: 1. Interval placement of right upper extremity PICC with tip the catheter overlying the superior vena cava. 2. Poor inspiration with some bibasilar atelectasis. 3. If pneumoperitoneum is of concern, supine and upright or left lateral decubitus views of the abdomen are recommended. Electronically Signed: Dario Flores MD at 11:50 EST Tel , Service support ,
[2020-08-26] MEDS: Propofol 10MG/Ml 1,000 MG/100 ML Bottle 6.1 MG CONT INF (10:58)
[2020-08-26 11:49] LABS: Hepatitis B Surface Antibody Non-Reactive
[2020-08-26 11:56] LABS: Hepatitis B Surface Antigen Non-Reactive (Nonreactive)
--- NOTE | 2020-08-26 15:37 | PN_ITS ---
Patient Problems: Active and Suspected Problems (Last Reviewed 08/23/20 @ 03:[address] Raj Méndez MD) Intractable generalized abdominal pain (Acute) Chest pain (Acute) Acute respiratory failure with hypoxia (Acute) LEX (acute kidney injury) (Acute) Nausea (Acute) Abdominal pain (Acute) Fever (Acute) Subjective: Intubated and sedated he was found to have some mottling of the skin this morning so he was restarted back on pressors Vitals/I&O's: Vital Signs Temp Pulse Resp BP Pulse Ox 98.5 F 91 24 H 100/51 L 96 08/26/20 14:00 08/26/20 14:00 08/26/20 14:00 08/26/20 14:00 08/26/20 13:18 Oxygen Flow Rate (L/min) 45 Oxygen Delivery Method Mechanical Ventilator Weight: 229 lb 15.074 oz Body Mass Index (BMI) 35.9 Intake and Output for Last 24 Hours 08/24/20 08/25/20 08/26/20 23:59 23:59 23:59 Intake Total 1052.16 / 1072.16 3150.49 / 3158.59 795.55 / 795.55 Output Total 1899 / 1974 1727 / 1727 498 / 498 Balance -847.84 / -902.84 1423.49 / 1431.59 297.55 / 297.55 General: - - Intubated and sedated HEENT: Atraumatic, PERRLA, Normocephalic Oral: Moist Mucosa Neck: Supple, No JVD Lungs: Normal air movement, No rhonchi, No wheeze, No rales, Diminished Cardiovascular: Regular Rhythm, Normal S1, Normal S2, No murmurs, Tachycardic Abdomen: Soft, Non Tender, No Hepato-splenomegaly, Distended Extremities: No edema, Capillary Refill Less than 3 Seconds Skin: No rashes, No breakdown, Incision - Wound VAC in place in his midline incision, jaundice as well as lower extremity mottling Neurological: - - Intubated and sedated Psych/Mental Status: - - Intubated and sedated Microbiology Past 72 Hours 08/26/20 06:00 Sputum, Induced/Lukens Gram Stain - Final 08/20/20 Unknown Wound Drainage - Abdominal Gram Stain - Final 08/20/20 Unknown Wound Drainage - Abdominal Wound Culture - Final No growth aerobically. 08/20/20 Unknown Wound Drainage - Abdominal Anaerobic Culture - Final No anaerobic bacteria isolated. Laboratory Results 08/25/20 12:08: Crossmatch See Detail 08/25/20 17:47: POC Glucose 133 H 08/25/20 20:34: Hep Bs Antibody Non-Reactive 08/25/20 20:34: Hep B Core IgM Ab Pending 08/25/20 20:34: Hep Bs Antigen Non-Reactive 08/25/20 23:20: Hgb 9.5 L, Hct 30.0 L 08/25/20 23:40: POC Glucose 131 H 08/26/20 03:20: WBC 9.0, RBC 3.25 L, Hgb 9.9 L, Hct 30.9 L, MCV 95.1 H, MCH 30.5, MCHC 32.0, RDW Std Deviation 52.7 H, RDW Coeff of José Miguel 15.4 H, Plt Count 1 95, MPV 9.7, Neut % (Auto) Not Reportable, Absolute Neuts (auto) 6.7, Absolute Lymphs (auto) 1.35, Total Counted 100, Neutrophils % (Manual) 69, Band Neutrophils % 6 H, Lymphocytes % (Manual) 15 L, Monocytes % (Manual) 4, Eosinophils % (Manual) 1, Metamyelocytes % 2 H, Myelocytes % 2 H, Promyelocytes % 1 H, Nucleated RBCs/100 WBC 2, Diff Path Review May foll, Atypical Lymphocytes RARE, Toxic Granulation 1+, Platelet Estimate ADEQUATE, Anisocytosis 1+, Macrocytosis 1+ 08/26/20 03:20: Sodium 143, Potassium 4.6, Chloride 111 H, Carbon Dioxide 25.0, Anion Gap 7, BUN 85 H, Creatinine 4.04 H, Estim Creat Clear Calc 13.87, Est GFR (MDRD) Af Amer 18 L, Est GFR (MDRD) Non-Af 15 L, BUN/Creatinine Ratio 21.0 H, Glucose 113 H, Calcium 7.1 L, Phosphorus 4.6, Magnesium 2.7 H, Total Bilirubin 1.50 H, AST 323 H, ALT 298 H, Alkaline Phosphatase 235 H, Total Protein 5.8 L, Albumin 1.8 L, Globulin 4.0, Albumin/Globulin Ratio 0.4 L 08/26/20 05:40: POC Glucose 113 H Current Medications Acetaminophen (Acetaminophen 650 Mg Suppository) 650 mg RECTAL Q6H PRN PRN PRN Reason: FEVER Last Admin: 08/26/20 03:48 Dose: 650 mg Documented by: Finasteride (Finasteride 5 Mg Tablet) 5 mg PO QHS [facility]ESH Last Admin: 08/25/20 22:34 Dose: 5 mg Documented by: Fentanyl Citrate 1,000 mcg/ (Sodium Chloride) 100 mls @ 5 mls/hr CONT INF .Q20H [facility]; Protocol Last Titration: 08/26/20 14:00 Dose: 50 mcg/hr, 5 mls/hr Documented by: Propofol (Diprivan) 1,000 mg in 100 mls @ 6.123 mls/hr CONT INF .Q12H [facility]; Protocol Last Titration: 08/26/20 14:00 Dose: 10 mcg/kg/min, 6.1 mls/hr Documented by: Pantoprazole Sodium 40 mg/ (Sodium Chloride) 110 mls @ 330 mls/hr IV Q12 [facility] Last Infusion: 08/26/20 11:35 Dose: Infused Documented by: Meropenem 1 gm/ Sodium (Chloride) 120 mls @ 33 mls/hr IV Q12H [facility] Last Infusion: 08/26/20 10:00 Dose: Infused Documented by: Vasopressin 20 units/ Sodium (Chloride) 25 mls @ 3 mls/hr IV .Q8H20M [facility] Last Infusion: 08/26/20 14:00 Dose: 0.04 units/min, 3 mls/hr Documented by: Norepinephrine Bitartrate 16 (mg/ Sodium Chloride) 500 mls @ 9.375 mls/hr CONT INF .[id number] [facility]; Protocol Last Titration: 08/26/20 14:00 Dose: 50 mcg/min, 93.8 mls/hr Documented by: Multivitamins 10 ml/ Chromium/Copper/Manganese/Seleni/Zn 1 ml/ Amino Acids/Electrolytes/Dextrose 2,011 mls @ 84 mls/hr IV .[id number] [facility] Stop: 08/27/20 15:48 Nitroglycerin (Nitroglycerin (Inpatient Use) 0.4 Mg Tab.Subl) 0.4 mg SUBLINGUAL Q5M PRN PRN Reason: CARDIAC/CHEST PAIN Last Admin: 08/23/20 02:12 Dose: 0.4 mg Documented by: Ondansetron HCl (Ondansetron 4 Mg/2 Ml Vial) 4 mg IV Q8H PRN PRN PRN Reason: NAUSEA Sodium Chloride (0.9% Saline Lock 10 Ml Syringe) 10 - 40 ml IV UD PRN PRN Reason: SALINE FLUSH Last Admin: 08/25/20 22:32 Dose: 40 ml Documented by: STROKE Vital Signs/Narrative: Vital Signs Temp Pulse Resp BP Pulse Ox 08/26/20 14:00 98.5 F 91 24 H 100/51 L 08/26/20 13:25 94 27 H 99/71 08/26/20 13:18 96 25 H 96 08/26/20 13:00 98.5 F 93 24 H 110/52 L 08/26/20 12:02 106 H 28 H 84/60 L 08/26/20 12:00 100.1 F H 104 H 26 H 84/60 L 96 08/26/20 11:40 108 H 27 H 102/67 Medical Necessity - Tobacco Use Smoking Status: Never smoker Tobacco Use: Chew Assessment/Plan All Active Problems (Last Reviewed 08/23/20 @ 03:[address] Raj Méndez MD) Intractable generalized abdominal pain (Acute) Chest pain (Acute) Acute respiratory failure with hypoxia (Acute) LEX (acute kidney injury) (Acute) COVID-19 (Resolved) Nausea (Acute) Abdominal pain (Acute) Fever (Acute) 1. Acute hypoxic respiratory failure secondary to volume overload/bilateral pneumothoraces/sinus tachycardia -His tachycardia is improved after intubation however his blood pressure is marginal, will hold off on any rate control medications -Previous EKGs demonstrated sinus tachycardia. And his troponins were normal -he did receive bilateral chest tubes 08/23/2020 with good resolution of his pneumothorax on either side 2. Abdominal pain secondary to a large bowel obstruction from obstructing lesion in the sigmoid colon/acute renal failure/elevated LFTs/fever -Status post surgical excision August 20, 2020 -He did receive antibiotics prior, during, and after the surgical procedure -Remains afebrile without a leukocytosis -Wound VAC is in place -LEX is prerenal. On August 20, 2020 he was 1.05 and then he increased to 3.03 the next day. -He was given 80 mg of Lasix without any urine output. His creatinine increased from 1.9 to little over 3. We will consult nephrology to assist with his renal failure. -Given his elevation in BUN and his creatinine to 4.86 today. Dialysis catheter placed 08/25/2020 -AST and ALT are also elevated now, will continue to monitor could be secondary to cardiogenic shock as she is not requiring IV pressor support -Continue with meropenem 3. Upper GI bleed with acute blood loss anemia -She had an OG inserted after intubation and was placed on suction -Continue with PPI coverage and will transfuse 2 units. He dropped to 7.1 -We will hold Lovenox and placed on SCDs 4. BPH -Stable -Peck is in place. Once stable can resume Proscar and Flomax DVT: SCDs Inpatient E&M: 22551 Subs Hosp L2
--- NOTE | 2020-08-26 15:40 | EKG12_ITS ---
Test Reason : ARRHYTHMIA Blood Pressure : / mmHG Vent. Rate : 046 BPM Atrial Rate : 046 BPM P-R Int : 174 ms QRS Dur : 124 ms QT Int : 454 ms P-R-T Axes : -28 023 038 degrees QTc Int : 397 ms Marked sinus bradycardia Low voltage QRS (LIMB LEADS) Confirmed by FRANCO TITUS, LIGIA ([id number]), film editor supervisor ANISHA HARRIS ([id number]) on 09/07/2020 12:00:24 PM Referred By: Confirmed By:LIGIA GAMEZ MD
[2020-08-26 16:57] LABS: Anion Gap 23 (5-15); BUN 88 mg/dL (7-18); BUN/Creat Ratio 17.9 RATIO (10-20); Calcium,Total 6.8 mg/dL (8.5-10.1); Chloride 115 mmol/L (98-107); Creatinine, Serum 4.92 mg/dL (0.70-1.30); EST Glomerular Filtration Rate 12 mL/min (>60); Est Glom Filt Rate - Afr Amer 15 mL/min (>60); Estimated Creatinine Clearance 11.39 ml/min; Glucose 35 mg/dL (74-106); Magnesium 3.5 mg/dL (1.6-2.6); Phosphorus 11.3 mg/dL (2.5-4.9); Potassium 6.6 mmol/L (3.5-5.1); Sodium Level 146 mmol/L (136-145)
--- NOTE | 2020-08-26 17:06 | CASEMGMT ---
Pt is not doing well medically. SW offered support to family, called Pastor Yusuf Alvarado for family, he is going to come to be with the family. MAKENNA Reyes
[2020-08-26] MEDS: Sodium Bicarbonate 8.4% 50 ML Syringe 50 MEQ IV (17:15)
[2020-08-26] MEDS: Glucagon 1 MG/ML Syringe IV (17:15)
--- NOTE | 2020-08-26 17:16 | PCM.PN.REN ---
Patient Problems: Active and Suspected Problems (Last Reviewed 08/23/20 @ 03:[address] Raj Méndez MD) Intractable generalized abdominal pain (Acute) Chest pain (Acute) Acute respiratory failure with hypoxia (Acute) LEX (acute kidney injury) (Acute) Nausea (Acute) Abdominal pain (Acute) Fever (Acute) Subjective: Patient remains intubated - Physical Exam Vitals/I&O's: Vital Signs Temp Pulse Resp BP Pulse Ox 95.0 F L 60 24 H 75/64 L 96 08/26/20 17:01 08/26/20 17:01 08/26/20 17:01 08/26/20 17:01 08/26/20 13:18 Oxygen Flow Rate (L/min) 45 Oxygen Delivery Method Mechanical Ventilator Weight: 104.3 kg Body Mass Index (BMI) 35.9 Intake and Output for Last 24 Hours 08/24/20 08/25/20 08/26/20 23:59 23:59 23:59 Intake Total 1052.16 / 1072.16 3150.49 / 3158.59 1121.04 / 1121.04 Output Total 1899 / 1974 1727 / 1727 498 / 498 Balance -847.84 / -902.84 1423.49 / 1431.59 623.04 / 623.04 General: Disoriented, Lethargic, - - intubated HEENT: Atraumatic Oral: Moist Mucosa Neck: Supple, No JVD Lungs: No rhonchi, No wheeze, Diminished, - Cardiovascular: Normal S1, Normal S2, Tachycardic Abdomen: Soft, Hypoactive Bowel Sounds, Distended Extremities: No clubbing, No cyanosis, Edema Skin: No rashes Neurological: - - sedated Microbiology Past 72 Hours 08/26/20 06:00 Sputum, Induced/Lukens Gram Stain - Final 08/20/20 Unknown Wound Drainage - Abdominal Gram Stain - Final 08/20/20 Unknown Wound Drainage - Abdominal Wound Culture - Final No growth aerobically. 08/20/20 Unknown Wound Drainage - Abdominal Anaerobic Culture - Final No anaerobic bacteria isolated. Laboratory Results 08/25/20 12:08: Crossmatch See Detail 08/25/20 17:47: POC Glucose 133 H 08/25/20 20:34: Hep Bs Antibody Non-Reactive 08/25/20 20:34: Hep B Core IgM Ab Pending 08/25/20 20:34: Hep Bs Antigen Non-Reactive 08/25/20 23:20: Hgb 9.5 L, Hct 30.0 L 08/25/20 23:40: POC Glucose 131 H 08/26/20 03:20: WBC 9.0, RBC 3.25 L, Hgb 9.9 L, Hct 30.9 L, MCV 95.1 H, MCH 30.5, MCHC 32.0, RDW Std Deviation 52.7 H, RDW Coeff of José Miguel 15.4 H, Plt Count 195, MPV 9.7, Neut % (Auto) Not Reportable, Absolute Neuts (auto) 6.7, Absolute Lymphs (auto) 1.35, Total Counted 100, Neutrophils % (Manual) 69, Band Neutrophils % 6 H, Lymphocytes % (Manual) 15 L, Monocytes % (Manual) 4, Eosinophils % (Manual) 1, Metamyelocytes % 2 H, Myelocytes % 2 H, Promyelocytes % 1 H, Nucleated RBCs/100 WBC 2, Diff Path Review May foll, Atypical Lymphocytes RARE, Toxic Granulation 1+, Platelet Estimate ADEQUATE, Anisocytosis 1+, Macrocytosis 1+ 08/26/20 03:20: Sodium 143, Potassium 4.6, Chloride 111 H, Carbon Dioxide 25.0, Anion Gap 7, BUN 85 H, Creatinine 4.04 H, Estim Creat Clear Calc 13.87, Est GFR (MDRD) Af Amer 18 L, Est GFR (MDRD) Non-Af 15 L, BUN/Creatinine Ratio 21.0 H, Glucose 113 H, Calcium 7.1 L, Phosphorus 4.6, Magnesium 2.7 H, Total Bilirubin 1.50 H, AST 323 H, ALT 298 H, Alkaline Phosphatase 235 H, Total Protein 5.8 L, Albumin 1.8 L, Globulin 4.0, Albumin/Globulin Ratio 0.4 L 08/26/20 05:40: POC Glucose 113 H 08/26/20 16:15: Sodium 146 H, Potassium 6.6 H*, Chloride 115 H, Carbon Dioxide 8.0 L*, Anion Gap 23 H, BUN 88 H, Creatinine 4.92 H, Estim Creat Clear Calc 11.39, Est GFR (MDRD) Af Amer 15 L, Est GFR (MDRD) Non-Af 12 L, BUN/Creatinine Ratio 17.9, Glucose 35 L*, Calcium 6.8 L, Phosphorus 11.3 H*, Magnesium 3.5 H, Troponin I 0.078 H 08/26/20 16:30: PT Pending, INR Pending, APTT Pending, Fibrinogen Pending 08/26/20 17:00: Sodium Pending, Potassium Pending, Chloride Pending, Carbon Dioxide Pending, Anion Gap Pending, BUN Pending, Creatinine Pending, Est GFR (MDRD) Af Amer Pending, Est GFR (MDRD) Non-Af Pending, BUN/Creatinine Ratio Pending, Glucose Pending, Calcium Pending, Phosphorus Pending, Magnesium Pending Current Medications Acetaminophen (Acetaminophen 650 Mg Suppository) 650 mg RECTAL Q6H PRN PRN PRN Reason: FEVER Last Admin: 08/26/20 03:48 Dose: 650 mg Documented by: Finasteride (Finasteride 5 Mg Tablet) 5 mg PO QHS BHAVESH Last Admin: 08/25/20 22:34 Dose: 5 mg Documented by: Fentanyl Citrate 1,000 mcg/ (Sodium Chloride) 100 mls @ 5 mls/hr CONT INF .Q20H [facility]; Protocol Last Titration: 08/26/20 17:01 Dose: 50 mcg/hr, 5 mls/hr Documented by: Propofol (Diprivan) 1,000 mg in 100 mls @ 6.123 mls/hr CONT INF .Q12H [facility]; Protocol Last Titration: 08/26/20 17:01 Dose: 10 mcg/kg/min, 6.1 mls/hr Documented by: Pantoprazole Sodium 40 mg/ (Sodium Chloride) 110 mls @ 330 mls/hr IV Q12 [facility] Last Infusion: 08/26/20 11:35 Dose: Infused Documented by: Meropenem 1 gm/ Sodium (Chloride) 120 mls @ 33 mls/hr IV Q12H [facility] Last Infusion: 08/26/20 10:00 Dose: Infused Documented by: Vasopressin 20 units/ Sodium (Chloride) 25 mls @ 3 mls/hr IV .Q8H20M [facility] Last Infusion: 08/26/20 17:01 Dose: 0.04 units/min, 3 mls/hr Documented by: Norepinephrine Bitartrate 16 (mg/ Sodium Chloride) 500 mls @ 9.375 mls/hr CONT INF .[id number] [facility]; Protocol Last Titration: 08/26/20 17:01 Dose: 50 mcg/min, 93.8 mls/hr Documented by: Multivitamins 10 ml/ Chromium/Copper/Manganese/Seleni/Zn 1 ml/ Amino Acids/Electrolytes/Dextrose 2,011 mls @ 84 mls/hr IV .[id number] [facility] Stop: 08/27/20 15:48 Nitroglycerin (Nitroglycerin (Inpatient Use) 0.4 Mg Tab.Subl) 0.4 mg SUBLINGUAL Q5M PRN PRN Reason: CARDIAC/CHEST PAIN Last Admin: 08/23/20 02:12 Dose: 0.4 mg Documented by: Ondansetron HCl (Ondansetron 4 Mg/2 Ml Vial) 4 mg IV Q8H PRN PRN PRN Reason: NAUSEA Sodium Chloride (0.9% Saline Lock 10 Ml Syringe) 10 - 40 ml IV UD PRN PRN Reason: SALINE FLUSH Last Admin: 08/25/20 22:32 Dose: 40 ml Documented by: Medical Necessity - Tobacco Use Smoking Status: Never smoker Tobacco Use: Chew Assessment/Plan All Active Problems (Last Reviewed 08/23/20 @ 03:[address] Raj Méndez MD) Intractable generalized abdominal pain (Acute) Chest pain (Acute) Acute respiratory failure with hypoxia (Acute) LEX (acute kidney injury) (Acute) COVID-19 (Resolved) Nausea (Acute) Abdominal pain (Acute) Fever (Acute) 1- LEX likely ATN Benign urine.no evidence of obstruction Started on HD 08/25 lab at 4 PM showed K 6.6, HC03 8 and P 11. Will repeat to confirm. if the lab are the same, will arrange for HD today Keep MAP > 65 Monitor for kidney function recovery 2- Hyperkalemia. Will repeat K level 3- metabolic acidosis. will repeat HC03 level Should improve with HD 4- sigmoid diverticulitis s/p sigmoid colectomy management as per the surgery 5- acute RF on vent support as per ICU Will try UF as tolerated Will continue to follow. Please call if any question Darline Gee MD
[2020-08-26 17:18] LABS: International Normalized Ratio 2.2; Prothrombin Time (Protime)PT. 23.6 SECONDS (11.7-14.9)
[2020-08-26 17:19] LABS: Fibrinogen 742 mg/dl (203-444)
--- NOTE | 2020-08-26 17:20 | NURSING ---
Dr. Glass at bedside talking with family. automatic BP unable to read, manual obtained 64/42. No palpable peripheral pulses, femoral palpable but weak.
--- NOTE | 2020-08-26 17:32 | NURSING ---
Dr. Glass at bedside to perform fem stick for ABG, obtained. Unable to obtain BP, Femoral pulse present, weak and regular.
--- NOTE | 2020-08-26 17:35 | EKG12_ITS ---
Test Reason : ARRHYTHMIA Blood Pressure : / mmHG Vent. Rate : 072 BPM Atrial Rate : 133 BPM P-R Int : 170 ms QRS Dur : 104 ms QT Int : 394 ms P-R-T Axes : -27 010 035 degrees QTc Int : 431 ms Sinus tachycardia with Premature atrial complexes Low Voltage QRS : Limb Leads Confirmed by FRANCO TITUS, LIGIA ([id number]), clinical editor ANISHA HARRIS ([id number]) on 09/07/2020 12:00:42 PM Referred By: Confirmed By:LIGIA GAMEZ MD
[2020-08-26 17:45] LABS: Anion Gap 25 (5-15); BUN 93 mg/dL (7-18); BUN/Creat Ratio 17.3 RATIO (10-20); Calcium,Total 7.3 mg/dL (8.5-10.1); Chloride 113 mmol/L (98-107); Creatinine, Serum 5.39 mg/dL (0.70-1.30); EST Glomerular Filtration Rate 11 mL/min (>60); Est Glom Filt Rate - Afr Amer 13 mL/min (>60); Glucose 22 mg/dL (74-106); Magnesium 3.8 mg/dL (1.6-2.6); Phosphorus 13.2 mg/dL (2.5-4.9); Potassium 7.3 mmol/L (3.5-5.1); Sodium Level 146 mmol/L (136-145)
--- NOTE | 2020-08-26 18:05 | CPS ---
CRITICAL ABG VALUES. DR FOSS OBTAINED LT FEM STICK AWARE OF CRITICAL RESULTS.
--- NOTE | 2020-08-26 18:15 | CPS ---
TERMINAL WEAN EXTUBATION AT [address] FOSS
--- NOTE | 2020-08-26 18:15 | NURSING ---
Family at bedside. Explanation provided to family regarding removal of ET tube per Son's wishes. ET tube and OG removed by Dr. Glass. All medications turned off.
[2020-08-26 18:16] LABS: Base Excess < -30 mmol/L (-2 to +2); Bicarbonate 4.8 mmol/L (22-26); Blood Gas Specimen Type ART; FI02 30; Mode AC; O2 Delivery Device ET Tube; PEEP 5; PO2 83 mmHG (75-100); RR 12; SITE L Fem; SO2 76 % (95-99); Total Carbon Dioxide 6 mmol/L; Vt 450; pCO2 37.8 mmHg (35-45); pH 6.71 (7.35-7.45)
--- NOTE | 2020-08-26 19:53 | PCM.DEATH ---
Preliminary Cause of Cardiogenic shock Date of Admission: 08/19/20 Date of : 08/26/20 - Principle Diagnosis Cardiogenic shock Acute hypoxic respiratory failure secondary to volume overload Bilateral pneumothoraces Sinus tachycardia Acute renal failure Liver failure Upper GI bleed Acute blood loss anemia Problem List: Active and Suspected Problems (Last Reviewed 08/23/20 @ 03:[address] Raj Méndez MD) Intractable generalized abdominal pain (Acute) Chest pain (Acute) Acute respiratory failure with hypoxia (Acute) LEX (acute kidney injury) (Acute) Nausea (Acute) Abdominal pain (Acute) Fever (Acute) Hospital Course Mr. Bello is an 79-year-old gentleman who was admitted on 06/19/2020 to the general surgery service because of a large colon obstruction. Initially it was assumed to be a cancer however it turned out to be diverticulitis with an abscess. He proceeded through surgery while he had a wound VAC placed and then medicine was consulted because of ongoing tachycardia. Initially his fluid rate was decreased and then discontinued altogether he was given a couple doses of beta-zarina to try to control his heart rate. However he continued to decompensate throughout the day on August 23, 2020 and he was transferred to the ICU. He was given a dose of Lasix to try to decrease his volume overload. This was complicated by his ongoing renal failure that was slow to improve. In the ICU he was given another dose of Lasix when he was requiring more oxygen and this also did not produce any urine. At this point on the , he was intubated. The chest x-ray obtained after intubation it demonstrated bilateral pneumothoraces therefore general surgery was called in and they placed bilateral chest tubes for decompression. During his stay in the ICU he developed an upper GI bleed and had to be transfused 2 units. He continued to have soft abdomen however because he continued to deteriorate he was started on antibiotics and a full set of cultures were obtained all of which are still pending. Nephrology was consulted and a dialysis catheter was placed and he was started on dialysis. He continued to deteriorate and because the pressors support necessary appeared to be in cardiogenic shock which continued to worsen. On 08/26/2020 he was noticed to be mottled in his lower extremities and throughout the day these became worse. The tips of his fingers became blue and it was felt to be in DIC or very close to it. He was also in liver failure with elevated LFTs and an INR of 2.2. He developed an arrhythmia and so family was called then. At that time a set of labs were obtained which demonstrated a potassium of 6.6, a phosphorus of 11.3, blood sugar of 35, creatinine of 4.92, and bicarb of 8. It was discussed with the family that we might be able to proceed with dialysis so I contacted nephrology however because of his hypotension with systolics in the 70s they felt that he would not survive the procedure. To be certain a repeat set of labs were obtained and at this point his potassium was 7.3 his bicarb was 8 his phosphorus was 13.2. He was given glucagon as well as an amp of bicarb and I performed a femoral stick to obtain an ABG. The pH on his ABG was 6.71 with a bicarb of 4.8 and O2 sat of 76 and a PCO2 of 37.8. At this point the international recruiter arrived and on further discussion with the family they elected to proceed with hospice. Jeffrey was terminally extubated at 181 and he at 1828 on 08/26/2020. Inpatient E&M: 22978 Disch Hosp
[2020-08-27 15:10] LABS: Hepatitis B Core AB IgM Negative (Negative)
[2020-08-28 13:21] LABS: Pathologist Review Reviewed
== END 2020-08-26 18:28 | DRG 329 ==
LOC: ED 15:17 → MS3 08-21 06:51 → ICU 08-23 14:39
PROVIDERS: Hospitalist; Internal Medicine Critical Care Medicine; Internal Medicine Nephrology; Admitting Provider Surgery; Emergency Provider Emergency Medicine; PCP Internal Medicine; Visit Provider Family Medicine
PROC: 0DTN0ZZ Resection of Sigmoid Colon, Open Approach (ICD-10-PCS; CPT 44204; principal; 2020-08-20 10:00)
DX: K56.609 Unspecified intestinal obstruction, unspecified as to partial versus complete obstruction (principal); J96.01 Acute respiratory failure with hypoxia; N17.0 Acute kidney failure with tubular necrosis; E43 Unspecified severe protein-calorie malnutrition; J93.9 Pneumothorax, unspecified; K57.32 Diverticulitis of large intestine without perforation or abscess without bleeding; D62 Acute posthemorrhagic anemia; E87.70 Fluid overload, unspecified; R57.0 Cardiogenic shock; R00.0 Tachycardia, unspecified; N40.0 Benign prostatic hyperplasia without lower urinary tract symptoms; E87.5 Hyperkalemia; K72.90 Hepatic failure, unspecified without coma; K40.90 Unilateral inguinal hernia, without obstruction or gangrene, not specified as recurrent; Z85.46 Personal history of malignant neoplasm of prostate; Z86.19 Personal history of other infectious and parasitic diseases; Z53.31 Laparoscopic surgical procedure converted to open procedure; Z79.82 Long term (current) use of aspirin; Z80.42 Family history of malignant neoplasm of prostate; Z83.3 Family history of diabetes mellitus; Z85.07 Personal history of malignant neoplasm of pancreas; K56.7 Ileus, unspecified; N18.30 Chronic kidney disease, stage 3 unspecified
CPT/HCPCS: 31500; 31720; 36415; 36569; 36600; 71045; 71046; 74018; 74177; 76705; 80048; 80053; 81001; 82436; 82550; 82570; 82803; 82962; 83735; 84100; 84133; 84134; 84300; 84443; 84478; 84484; 85014; 85018; 85025; 85384; 85610; 85730; 86644; 86705; 86706; 86850; 86900; 86901; 86920; 86922; 87040; 87070; 87075; 87086; 87205; 87340; 87426; 88305; 88307; 90937; 93005; 93306; 94002; 94003; 94640; 97162; 97166; 97530; 97535; 97802; 97803; 99251; 99284; 99406; J2185; J7030; J7040; J7050; J7120; P9016; P9040; P9047; Q9967; A4216; C1751; C1752; G0257; G0463; J0744; J1610; J1940; J2405; J3010; J3490